=== PATIENT | female | born 1945 | race Caucasian/White ===

== ENCOUNTER 2016-09-25 12:59 | Inpatient (IN) | payer MEDICARE, OTHER ==
--- NOTE | 2016-09-25 13:17 | ER Document Report ---
ED Medical Screen (RME) - General Chief Complaint: Foot Pain Stated Complaint: SORES ON FEET Time seen by provider: 13:13 Mode of Arrival: Wheelchair Information source: Patient, Relative Notes: 71 yo female presents to ed for painful urinations swollen bilateral legs sores on both feet draining. States she went to [facility] yesterday and they sent her home with out doing any test, HX Dm asthma and chf - HPI Onset: Other - SEP 04 got out of rehab had small blisters which have gotten worse, urinary sympton for a week Quality of pain: Sharp Severity: Moderate Pain Level: 4 Associated Symptoms: Leg swelling, Other - burning with urination very dark urine Exacerbated by: Movement, Walking, Other - urination Relieved by: Denies Similar symptoms previously: Yes Recently seen / treated by doctor: Yes - Related Data Smoking: Non-smoker Frequency of alcohol use: None Drug Abuse: None
--- NOTE | 2016-09-25 15:04 | ER Document Report ---
ED General - General Chief Complaint: Skin Problem Stated Complaint: SORES ON FEET Time seen by provider: 14:59 Mode of Arrival: Wheelchair Information source: Patient, Relative Notes: 71-year-old female with 2 week history of worsening swelling to both lower extremities along with weeping of clear fluid from both lower legs. Family reports patient was admitted at [facility] in June with a UTI and bacteremia and congestive heart failure. From there she was discharged to rehabilitation facility in [place] and discharged home September 04. Family reports that she was doing well at time of discharge but is becoming gradually weaker. They report that she had 2 wounds on her right lower abdomen that required some type of debridement while she was hospitalized and those were looking better discharge they've gotten worse again since he got home and she is also developed red blisters on both feet and redness to the right leg. Family reports she's had decreased appetite and malaise for about 2 weeks as well. He reports some subjective fevers and chills but no vomiting or diarrhea. Patient is also reporting dysuria for about a week. Family reports this point she is no longer able to ambulate because of weakness. Physical Exam: General: Alert, appears uncomfortable no respiratory distress HEENT: Normocephalic. Atraumatic. PERRLA. Extraocular movements intact. Oropharynx clear. Neck: Supple. Non-tender. No JVD Respiratory: No respiratory distress. Clear and equal breath sounds bilaterally. Cardiovascular: Regular rate and rhythm. Abdominal: Normal Inspection. Soft, non-tender. No distension. Normal Bowel Sounds. Back: Non-tender. No deformity or step off. Extremities: Moves all four extremities. Upper extremities: 2+ radial pulses bilaterally. 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 Skin: Warm. Dry. Normal color. Patient has a 2 x 6 cm area of denuded skin in the right lower abdomen with a dry dressing over it. She has cheesy material in her inguinal folds with erythema consistent with fungal infection but no induration crepitance or fluctuance. The patient has a 2 cm area of erythema with open blister on the dorsum of the left foot and a 2 cm open blister with 3 cm of surrounding erythema on the dorsum of the right foot. There is bright erythema anteriorly and laterally in the right lower leg TRAVEL OUTSIDE OF THE [place] IN LAST 30 DAYS: No - Related Data Allergies/Adverse Reactions: amoxicillin Allergy (Verified 09/25/16 16:22) ampicillin Allergy (Verified 09/25/16 16:22) morphine Allergy (Verified 09/25/16 16:22) Sulfa (Sulfonamide Antibiotics) Allergy (Verified 09/25/16 16:26) Past Medical History - General Information source: Patient, Relative Last Menstrual Period: menopause - Social History Smoking Status: Never Smoker Chew tobacco use (# tins/day): No Frequency of alcohol use: None Drug Abuse: None Family History: None Patient has suicidal ideation: No Patient has homicidal ideation: No Endocrine Medical History: Reports: Hx Diabetes Mellitus Type 2 Review of Systems - Review of Systems Constitutional: Malaise, Weakness EENT: denies: Ear pain, Throat pain, Mouth pain Cardiovascular: Edema. denies: Chest pain, Palpitations, Dyspnea Respiratory: denies: Cough, Short of breath, Wheezing Gastrointestinal: denies: Abdominal pain, Diarrhea, Vomiting Genitourinary: Burning Female Genitourinary: No symptoms reported Musculoskeletal: Leg swelling, Ankle swelling. denies: Back pain, Muscle pain Hematologic/Lymphatic: denies: Swollen glands Neurological/Psychological: denies: Weakness, Numbness Physical Exam - Vital signs Vitals: Temp Pulse Resp BP Pulse Ox 98.5 F 96 16 139/39 H 99 09/25/16 13:14 09/25/16 13:14 09/25/16 13:14 09/25/16 13:14 09/25/16 13:14 Course - Re-evaluation Re-evalutation: 09/25/16 20:48 Patient is started on Rocephin for UTI. She also has evidence for cellulitis involving the right foot and right lower leg. 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 Patient is hyperkalemic and that was treated with a recheck 1 hour later showing some improvement. Patient has remained hemodynamically stable and has no EKG evidence for a worrisome degree of hyperkalemia. Patient this point is too weak to even sit up without assistance and I believe would fail any attempt at discharge and outpatient therapy and requires admission for UTI acute or chronic renal failure peripheral edema hyperkalemia and cellulitis Dr. Tracy accepts the patient for admission - Vital Signs Vital signs: Temp Pulse Resp BP Pulse Ox 98.2 F 96 19 140/50 H 97 09/25/16 20:31 09/25/16 13:14 09/25/16 20:06 09/25/16 20:06 09/25/16 20:06 - Laboratory Result Diagrams: 09/25/16 15:38 09/25/16 19:40 Laboratory results interpreted by me: 09/25/16 09/25/16 09/25/16 15:38 15:38 15:38 WBC 10.9 H RBC 3.48 L Hgb 10.2 L Hct 31.2 L RDW 21.6 H Eosinophils % 13.5 H Absolute Eosinophils 1.5 H Potassium 6.7 H* BUN 68 H Creatinine 2.65 H Est GFR ( Amer) 22 L Est GFR (Non-Af Amer) 18 L AST 55 H ALT 61 H Alkaline Phosphatase 216 H NT-Pro-B Natriuret Pep 7310 H Total Protein 5.8 L Albumin 2.3 L Urine Protein Urine Blood Ur Leukocyte Esterase Urine Ascorbic Acid 09/25/16 09/25/16 15:38 19:40 WBC RBC Hgb Hct RDW Eosinophils % Absolute Eosinophils Potassium 5.8 H BUN Creatinine Est GFR ( Amer) Est GFR (Non-Af Amer) AST ALT Alkaline Phosphatase NT-Pro-B Natriuret Pep Total Protein Albumin Urine Protein 100 H Urine Blood LARGE H Ur Leukocyte Esterase LARGE H Urine Ascorbic Acid 40 H Urinalysis shows greater than 182 white cells and greater than 182 red cells. - Diagnostic Test Radiology reviewed: Reports reviewed - EKG Interpretation by Me Additional EKG results interpreted by me: 09/25/16 20:48 EKG reviewed by myself shows sinus rhythm at 90 no acute changes Discharge - Discharge Clinical Impression: UTI (urinary tract infection) Qualifiers: Urinary tract infection type: site unspecified Hematuria presence: with hematuria Qualified Code(s): N39.0 - Urinary tract infection, site not specified ; R31.9 - Hematuria, unspecified Cellulitis Qualifiers: Site of cellulitis: extremity Site of cellulitis of extremity: lower extremity Laterality: unspecified laterality Qualified Code(s): L03.119 - Cellulitis of unspecified part of limb Acute renal failure Qualifiers: Acute renal failure type: unspecified Qualified Code(s): N17.9 - Acute kidney failure, unspecified Disposition: ADMITTED INPATIENT Admitting Provider: Hospitalist Unit Admitted: [facility]
[2016-09-25] MEDS ORDERED: PIPERACILLIN/TAZOBACTAM 3.375 GM VIAL IV ONE (15:19)
[2016-09-25 16:38] LABS: ABSOLUTE EOSINOPHILS # (AUTO) 1.5 10^3/uL (0.0-0.6); ABSOLUTE LYMPHOCYTES (AUTO) 2.5 10^3/uL (0.5-4.7); ABSOLUTE MONOCYTES (AUTO) 0.9 10^3/uL (0.1-1.4); BASOPHILS % (AUTO) 0.4 % (0-2); EOSINOPHILS % (AUTO) 13.5 % (0-6); HEMATOCRIT 31.2 % (36.0-47.0); HEMOGLOBIN 10.2 g/dL (12.0-15.5); HGB HCT DIFFERENCE -0.6; LYMPHOCYTES % (AUTO) 22.9 % (13-45); MEAN CORPUSCULAR HEMOGLOBIN 29.4 pg (27.0-33.4); MEAN CORPUSCULAR HGB CONC 32.9 g/dL (32.0-36.0); MEAN CORPUSCULAR VOLUME 90 fl (80-97); MONOCYTES % (AUTO) 8.2 % (3-13); RED BLOOD COUNT 3.48 10^6/uL (3.72-5.28); RED CELL DISTRIBUTION WIDTH 21.6 % (11.5-14.0); WHITE BLOOD COUNT 10.9 10^3/uL (4.0-10.5)
[2016-09-25 16:44] LABS: ALANINE AMINOTRANSFERASE 61 U/L (9-52); ALBUMIN 2.3 g/dL (3.5-5.0); ALKALINE PHOSPHATASE 216 U/L (38-126); ANION GAP 8 (5-19); ASPARTATE AMINO TRANSFERASE 55 U/L (14-36); BILIRUBIN,TOTAL 0.9 mg/dL (0.2-1.3); BLOOD UREA NITROGEN 68 mg/dL (7-20); CALCIUM 8.6 mg/dL (8.4-10.2); CARBON DIOXIDE 23 mmol/L (22-30); CHLORIDE 107 mmol/L (98-107); CREATININE RESULT 2.65 mg/dL (0.52-1.25); GLUCOSE 109 mg/dL (75-110); TOTAL PROTEIN 5.8 g/dL (6.3-8.2)
[2016-09-25 16:48] LABS: POTASSIUM 6.7 mmol/L (3.6-5.0)
[2016-09-25 17:10] LABS: APPEARANCE,URINE TURBID; BILIRUBIN,URINE NEGATIVE (NEGATIVE); GLUCOSE, URINE NEGATIVE (NEGATIVE); KETONES,URINE NEGATIVE (NEGATIVE); LEUKOCYTE ESTERASE,URINE LARGE (NEGATIVE); NITRITE,URINE NEGATIVE (NEGATIVE); PROTEIN,URINE 100 mg/dL (NEGATIVE); URINE SPECIFIC GRAVITY 1.016; UROBILINOGEN,URINE NEGATIVE mg/dL (<2.0)
[2016-09-25] MEDS ORDERED: CEFTRIAXONE 1 GM/D5W RTU 50 ML IV ONE (18:08)
[2016-09-25] MEDS ORDERED: CALCIUM GLUCONATE 1000 MG/10 ML INJ IV ONE (18:09)
[2016-09-25] MEDS ORDERED: INSULIN REG, HUMAN 100 UNIT/ML 3 ML VIAL (PYX) IV ONE (18:10)
[2016-09-25] MEDS ORDERED: DEXTROSE 50%-WATER 25 GM/50 ML DISP.SYRIN IV ONE (18:10)
[2016-09-25] MEDS ORDERED: SODIUM BICARBONATE 4.2% INJ (2.4 MEQ/5 ML) VIAL INJ ONE (18:11)
[2016-09-25] MEDS ORDERED: SODIUM BICARBONATE 8.4% INJ 50 MEQ/50 ML DISP.SYRIN IV ONE (18:12)
--- NOTE | 2016-09-25 21:03 | EKG REPORT ---
SEVERITY:- BORDERLINE ECG - SINUS RHYTHM CONSIDER ANTERIOR INFARCT : Confirmed by: Evens Byers MD 25-Sep-2016 21:03:18
[2016-09-25 21:19] LABS: ADD ON TESTING BLD IN LAB ACKNOWLEDGE
[2016-09-25 21:35] LABS: MAGNESIUM 1.7 mg/dL (1.6-2.3)
[2016-09-25 21:48] LABS: CREATINE KINASE MB 2.14 ng/mL (<4.55)
[2016-09-25 21:50] LABS: TROPONIN I 0.041 ng/mL
[2016-09-25] MEDS ORDERED: GLUCAGON,HUMAN RECOMB 1 MG INJ IM PRN (22:26)
[2016-09-25] MEDS ORDERED: DEXTROSE 50%-WATER 25 GM/50 ML DISP.SYRIN IV PRN ×2 (22:26)
[2016-09-25] MEDS ORDERED: DEXTROSE 40% GEL 15 GM TUBE PO PRN ×2 (22:26)
[2016-09-25] MEDS ORDERED: PHARMACY COMMUNICATION ORDER MC SCH (22:30)
[2016-09-25] MEDS ORDERED: VANCOMYCIN HCL 0 MG in DEXTROSE 5%-WATER 250 ML IV NR (22:30)
[2016-09-25] MEDS ORDERED: VANCOMYCIN HCL INJ 1000 MG VIAL IV PRN (22:40)
[2016-09-25] MEDS ORDERED: VANCOMYCIN HCL 1,000 MG in DEXTROSE 5%-WATER 250 ML IV ONE (22:45)
[2016-09-26] MEDS ORDERED: NORMAL SALINE 1000 ML 1,000 ML IV PRN (00:50)
--- NOTE | 2016-09-26 00:55 | PDOC H&P ---
History of Present Illness Admission Date/PCP: 09/25/16 21:56 CATHERINE ARNOLD MD Patient complains of: leg swelling, weakness History of Present Illness: NEHA RUSSELL is a 71 year old female hospitalized in June of this year at [facility] for combination of urinary tract infection with resulting bacteremia, along with, by her description, new-onset congestive heart failure, who presents to the emergency room for evaluation of above complaints. Patient has been discussed with emergency room physician who evaluated the patient. Was transferred to a rehabilitation facility in [place] and discharge back home on September 04. Doing well at the time of discharge, but has gradually become weaker and weaker. Weakness has progressed to the point over the last several days she's been basically nonambulatory. Prior to that point, she was able to ambulate, pushing a wheelchair for support. She's had nausea and vomiting, without blood or coffee ground material, along with shaking chills diarrhea and dysuria. Has developed slowly progressive bilateral lower extremity swelling, along with red blisters on both feet and redness to the right leg. However, no respiratory complaints, no chest pain. . No history of MRSA infection or C. difficile. While hospitalized during the above stay, she did undergo debridement of 2 wounds on her right lower abdomen. Laboratory results are listed in [facility] and are reviewed. X-ray summary results are listed below, with full report(s) reviewed. . EKG reviewed . No old EKG available for comparison. Social history/personal habits: She is a . Lives with daughter. Retired. No use of alcohol tobacco or illicit drugs. Should patient become mentally incapacitated, surrogate health care decision maker daughter Sommer.. Family History : Daughter healthy. 2 brothers are alive and healthy. Father of Alzheimer's disease. Mother of heart problems. Allergies/adverse reactions are listed in [facility] and are reviewed. Home medications are reviewed provided by [facility] and are to be reconciled by nursing staff in [facility]. Home medications initially autopopulated into [facility] may not accurately reflect patient's true medications, dosages, and/or frequencies. REVIEW OF SYSTEMS: Constitutional: See history and present illness. Eyes: Wears glasses. ENT: No swallowing problems or complaints. No hearing problems or complaints. Pulmonary: No current complaints. Cardiovascular: No current complaints, including chest pain. Gastrointestinal: See history and present illness. Skin: See history and present illness. Hematologic: Easy bruising. Neurologic: No current complaints, including numbness or tingling. Musculoskeletal: Joint pain from arthritis. Psychiatric: No current complaints, including anxiety or depression. Endocrine: No current complaints, including polyuria. Genitourinary: No current complaints, including dysuria. PHYSICAL EXAMINATION: 5 feet 7 inches tall. 119.9 kg. BMI 41.4 kg/m. Blood pressure 147/62. Pulse 95 and regular. 98% saturation on room air. Respirations are 18 and unlabored. Temperature 98.5. Morbidly obese chronically ill-appearing female who nevertheless appears approximately her stated age. Appears to not feel very well. Otherwise , awake alert pleasant and cooperative. Skin is warm and dry. No subcutaneous nodules palpated. See comments under "abdomen" and "extremities" below. ENT: Hearing grossly normal to normal conversation. Tongue midline on protrusion pink and slightly tacky Eyes: No scleral icterus. Pupils equal and reactive to light at 4 mm. [place] conjunctivae. Neck is supple and nontender to gentle active range of motion and palpation. Midline trachea. No palpable thyroid nodule mass enlargement or tenderness. Lymphatic: No palpable cervical or clavicular nodes. Neck and lymphatic exams limited by patient body habitus. Psychiatric: Reasonable insight into acute and chronic medical issues. Oriented to time location and why here. Lungs: Auscultation reveals clear and equal breath sounds bilaterally. No use of accessory respiratory muscles. Cardiovascular: Heart regular rate and rhythm, without gallop murmur or rub. No carotid or abdominal aortic bruits. Moderate pitting diffuse edema, both lower extremities; pitting portion of the edema is particularly noticeable at ankles and feet. Not able to detect posterior tibial or dorsalis pedis pulses due to edema, but feet are warm and dry, with quite acceptable capillary refill in toes. Abdomen: soft, obese, mild to moderately distended essentially nontender except minimal discomfort in the mid abdomen, which is not overly remarkable with positive bowel sounds. Certainly no evidence of guarding or peritoneal signs. Unable to adequately evaluate abdomen for masses or organomegaly due to body habitus and distention. Evidence of pink moist rash under her abdominal panniculus, with a small ulcer on each side anteriorly. Extremities: Feet are warm and dry. No left calf tenderness to compression. Gentle manipulation of left lower extremity fails to reveal any obvious evidence of injury or instability to knee hip or ankle. Quite restricted range of motion at right knee, due to previous surgery; patient states she had the knee "removed," not replaced. Evidence of mild cellulitis involving the right lower extremity below the knee to just above the ankle, primarily anteriorly, laterally, and somewhat posteriorly, without crepitus fluctuance or expressible discharge. Has a small fairly clean ulcer on the dorsum of each foot; please see documentation by emergency room physician related to same. Neurologic: Moves upper extremities grossly normally. Left patellar reflex absent. Absent Babinski. Light touch is intact at feet. Dorsiflexion and plantarflexion of feet 5 / 5 and symmetric. Past Medical History Cardiac Medical History: Reports: Congestive Heart Failure, Hyperlipidema, Hypertension Denies: DVT, Myocardial Infarction, Pulmonary Embolism EENT Medical History: Reports: Eyes - Glasses Denies: Ears, Throat Neurological Medical History: Denies: Hemorrhagic CVA, Ischemic CVA, Seizures Endocrine Medical History: Reports: Diabetes Mellitus Type 2, Hypothyroidism Denies: Diabetes Mellitus Type 1, Hyperthyroidism Renal/ Medical History: Reports: Other - Recurrent urinary tract infections. GI Medical History: Denies: Cirrhosis, Gastroesophageal Reflux Disease, Hepatitis, Peptic Ulcer Disease Musculoskeltal Medical History: Reports: Arthritis Psychiatric Medical History: Denies: Alcohol Dependency, Depression, General Anxiety Disorder, Substance Abuse, Tobacco Dependency Hematology: Reports: Other - Easy bruising. Infectious Medical History: Denies: Clostridium Difficile, Hepatitis B, Hepatitis C, Methicillin- Resistant Staph Aureus Past Surgical History Past Surgical History: Reports: Herniorrhaphy - Umbilical, Orthopedic Surgery - "Removal" of right kneefusion? Social History Information Source: Patient, Emergency Med Personnel, [facility] Records Lives with: Family Smoking Status: Never Smoker Frequency of Alcohol Use: None Drugs: None - Advance Directive Resuscitation Status: Full Code Family History Family History: None Parental Family History Reviewed: Yes Children Family History Reviewed: Yes Sibling(s) Family History Reviewed.: Yes Medication/Allergy Home Medications: Allopurinol [Zyloprim 300 mg Tablet] 300 mg PO DAILY 09/25/16 Colchicine [Colchicine 0.6 mg Tablet] 0.6 mg PO BID 09/25/16 Diclofenac Sodium [Voltaren] 100 gm TP DAILY PRN 09/25/16 Fexofenadine HCl [Cynthia] 180 mg PO DAILY 09/25/16 Furosemide [Lasix 40 mg Tablet] 40 mg PO QAM 09/25/16 Insulin NPL/Insulin Lispro [Humalog Mix 50-50 Vial] 60 unit SQ TID 09/25/16 Levothyroxine Sodium [Synthroid 0.075 mg Tablet] 0.075 mg PO DAILY 09/25/16 [place]-3 Acid Ethyl Esters [Lovaza 1 gm Capsule] 1 gm PO DAILY 09/25/16 Pravastatin Sodium [Pravachol] 40 mg PO DAILY 09/25/16 RX: Aspirin 81 mg PO DAILY 09/25/16 RX: Lisinopril 5 mg PO DAILY 09/25/16 Ranitidine HCl [Zantac 150 mg Tablet] 150 mg PO DAILY 09/25/16 Saxagliptin HCl/Metformin HCl [Kombiglyze Xr 2.5-1,000 mg Tab] 2 each PO DAILY 09/25/16 Triamterene/Hydrochlorothiazid [Triamterene-Hctz 75-50 mg Tab] 1 tab PO DAILY Allergies/Adverse Reactions: amoxicillin Allergy (Verified 09/25/16 22:22) ampicillin Allergy (Verified 09/25/16 22:22) cefepime Allergy (Verified 09/27/16 13:40) Sulfa (Sulfonamide Antibiotics) Allergy (Verified 09/25/16 22:21) rash Physical Exam Vital Signs: Temp Pulse Resp BP Pulse Ox 98.2 F 96 18 142/62 H 98 09/25/16 20:31 09/25/16 13:14 09/25/16 21:02 09/25/16 21:02 09/25/16 21:02 Results Impressions: Chest X-Ray 09/25/16 13:20 IMPRESSION: Trace bilateral pleural effusions with bibasilar airspace disease, likely atelectasis. Assessment & Plan - Diagnosis (1) Abnormal chest x-ray Is this a current diagnosis for this admission?: YesPlan: Actual film reviewed, along with report. No respiratory complaints. Likely atelectasis. Incentive spirometry by respiratory therapy twice a day. (2) Abdominal wall skin ulcer Qualifiers: Non-pressure ulcer stage: unspecified non-pressure ulcer stage Qualified Code(s): L98.499 - Non-pressure chronic ulcer of skin of other sites with unspecified severity Is this a current diagnosis for this admission?: YesPlan: Surgery consult. (3) Acute renal failure Qualifiers: Acute renal failure type: unspecified Qualified Code(s): N17.9 - Acute kidney failure, unspecified Is this a current diagnosis for this admission?: YesPlan: Likely prerenal due to nausea vomiting diarrhea and decreased by mouth intake. Gentle IV fluids. Nephrology consult. Follow-up chemistry. (4) Anemia Qualifiers: Anemia type: unspecified type Qualified Code(s): D64.9 - Anemia, unspecified Is this a current diagnosis for this admission?: YesPlan: No need for transfusion. Follow-up CBC with differential. (5) CHF (congestive heart failure) Qualifiers: Congestive heart failure type: unspecified congestive heart failure type Congestive heart failure chronicity: acute Qualified Code(s): I50.9 - Heart failure, unspecified Is this a current diagnosis for this admission?: YesPlan: Cardiology consult. June 2016 hospital stay at [facility] for combination urinary tract infection and congestive heart failure. Patient denies any prior history of same. Have requested records from [facility]. With renal failure, and no pulmonary complaints, will hold Lasix for the present time. (6) Cellulitis of right leg Is this a current diagnosis for this admission?: YesPlan: Blood cultures. Intravenous antibiotics. (7) Diarrhea Qualifiers: Diarrhea type: unspecified type Qualified Code(s): R19.7 - Diarrhea , unspecified Is this a current diagnosis for this admission?: YesPlan: Stool for C. difficile. (8) Elevated LFTs Is this a current diagnosis for this admission?: YesPlan: Possibly due to underlying heart failure. No old labs available for comparison. Follow-up hepatic panel. (9) Elevated troponin Is this a current diagnosis for this admission?: YesPlan: Indeterminate level. Likely due to heart failure. No outward evidence of acute coronary syndrome. Serial troponins. Cardiology consult. (10) Foot ulcer, left Qualifiers: Non-pressure ulcer stage: unspecified non-pressure ulcer stage Qualified Code(s): L97.529 - Non-pressure chronic ulcer of other part of left foot with unspecified severity Is this a current diagnosis for this admission?: YesPlan: Surgery consult. (11) Peripheral edema Is this a current diagnosis for this admission?: Yes (12) Right foot ulcer Qualifiers: Non-pressure ulcer stage: unspecified non-pressure ulcer stage Qualified Code(s): L97.519 - Non-pressure chronic ulcer of other part of right foot with unspecified severity Is this a current diagnosis for this admission?: Yes (13) UTI (urinary tract infection) Qualifiers: Urinary tract infection type: site unspecified Hematuria presence: with hematuria Qualified Code(s): N39.0 - Urinary tract infection, site not specified Is this a current diagnosis for this admission?: YesPlan: Blood and urine cultures. Intravenous antibiotics. I have strongly encouraged patient not to get out of bed without notifying staff , to avoid a fall with injury. Knee high SCDs for DVT prophylaxis, , left lower extremity only, along with subcutaneous heparin. Impression and plans were discussed with patient, who concurs. Time spent in evaluation and management of patient: 90 minutes. - Inpatient Certification Based on my medical assessment, after consideration of the patient's comorbidities, presenting symptoms, or acuity I expect that the services needed warrant INPATIENT care.: Yes I certify that my determination is in accordance with my understanding of Medicare's requirements for reasonable and necessary INPATIENT services [42 CFR 412.3e].: Yes Medical Necessity: Need Close Monitoring Due to Risk of Patient Decompensation, Need For Continuous Telemetry Monitoring, Need for IV Antibiotics, Risk of Diagnosis Which Will Require Inpatient Eval/Care/Monitoring Post Hospital Care: D/C or Transfer Summary
[2016-09-26 01:02] LABS: ANION GAP 8 (5-19); BLOOD UREA NITROGEN 65 mg/dL (7-20); CALCIUM 8.7 mg/dL (8.4-10.2); CARBON DIOXIDE 22 mmol/L (22-30); CHLORIDE 111 mmol/L (98-107); CREATINE KINASE 93 U/L (30-135); CREATININE RESULT 2.56 mg/dL (0.52-1.25); GLUCOSE 115 mg/dL (75-110); POTASSIUM 5.9 mmol/L (3.6-5.0); SODIUM 141.1 mmol/L (137-145)
[2016-09-26 01:14] LABS: CREATINE KINASE MB 1.89 ng/mL (<4.55); TROPONIN I 0.047 ng/mL
[2016-09-26] MEDS ORDERED: INSULIN REG, HUMAN 100 UNIT/ML 3 ML VIAL (PYX) IV ONE (02:48)
[2016-09-26] MEDS ORDERED: DEXTROSE 50%-WATER 25 GM/50 ML DISP.SYRIN IV ONE (02:48)
[2016-09-26 06:59] LABS: ABSOLUTE BASOPHILS # (AUTO) 0.1 10^3/uL (0.0-0.2); ABSOLUTE EOSINOPHILS # (AUTO) 2.1 10^3/uL (0.0-0.6); ABSOLUTE LYMPHOCYTES (AUTO) 2.4 10^3/uL (0.5-4.7); ABSOLUTE MONOCYTES (AUTO) 0.9 10^3/uL (0.1-1.4); ABSOLUTE NEUT (AUTO) 4.3 10^3/uL (1.7-8.2); BASOPHILS % (AUTO) 1.5 % (0-2); EOSINOPHILS % (AUTO) 20.8 % (0-6); HEMOGLOBIN 8.8 g/dL (12.0-15.5); HGB HCT DIFFERENCE -0.6; LYMPHOCYTES % (AUTO) 24.5 % (13-45); MEAN CORPUSCULAR HEMOGLOBIN 29.4 pg (27.0-33.4); MEAN CORPUSCULAR HGB CONC 32.8 g/dL (32.0-36.0); MEAN CORPUSCULAR VOLUME 90 fl (80-97); MONOCYTES % (AUTO) 9.5 % (3-13); RED BLOOD COUNT 3.01 10^6/uL (3.72-5.28); RED CELL DISTRIBUTION WIDTH 22.2 % (11.5-14.0); SEGMENTED NEUTROPHILS % (AUTO) 43.7 % (42-78); WHITE BLOOD COUNT 9.9 10^3/uL (4.0-10.5)
[2016-09-26 07:06] LABS: ALANINE AMINOTRANSFERASE 50 U/L (9-52); ALBUMIN 2.1 g/dL (3.5-5.0); ALKALINE PHOSPHATASE 175 U/L (38-126); ANION GAP 7 (5-19); ASPARTATE AMINO TRANSFERASE 44 U/L (14-36); BILIRUBIN,TOTAL 0.7 mg/dL (0.2-1.3); BLOOD UREA NITROGEN 60 mg/dL (7-20); CALCIUM 8.5 mg/dL (8.4-10.2); CARBON DIOXIDE 23 mmol/L (22-30); CHLORIDE 111 mmol/L (98-107); CHOLESTEROL 88.26 mg/dL (0-200); CREATININE RESULT 2.47 mg/dL (0.52-1.25); Direct HDL 15 mg/dL (>40); GLUCOSE 147 mg/dL (75-110); POTASSIUM 5.3 mmol/L (3.6-5.0); SODIUM 140.9 mmol/L (137-145); TOTAL PROTEIN 5.1 g/dL (6.3-8.2); TRIGLYCERIDES 150 mg/dL (<150)
[2016-09-26 07:17] LABS: DIRECT LDL 45 mg/dL (<100)
[2016-09-26] MEDS ORDERED: CEFEPIME HCL 2 GM in DEXTROSE 5%-WATER 50 ML IV ONE (09:15)
[2016-09-26] MEDS ORDERED: CEFEPIME 2 GM/D5W RTU 50 ML IV SCH (10:00)
[2016-09-26] MEDS ORDERED: LORATADINE 10 MG TABLET PO ONE (11:00)
[2016-09-26] MEDS: LEVOTHYROXINE SODIUM 0.075 MG TABLET PO SCH (12:58)
[2016-09-26] MEDS: ASPIRIN 81 MG TABLET, CHEWABLE PO SCH (12:59)
[2016-09-26] MEDS: NYSTATIN TOPICAL POWDER 15 GM TP SCH ×2 (12:59→18:13)
[2016-09-26] MEDS: ACETAMINOPHEN 325 MG TABLET PO PRN (13:03)
[2016-09-26] MEDS: HEPARIN SOD (PORCINE) 5,000 UNIT/ML 1 ML SYRINGE SUBCUT SCH ×2 (13:04→22:22)
--- NOTE | 2016-09-26 13:37 | PDOC PROGRESS REPORT ---
Subjective Progress Note for:: 09/26/16 Subjective:: The patient was seen earlier today on rounds. Patient states that she overall feels very weak and tired. The patient admits to having persistent edema. Pain is well controlled at this time. The patient denies any nausea, vomiting, diarrhea, shortness of breath, dizziness, chest pain, heart palpitations, fevers , or chills. The patient has remained afebrile. Blood pressures have been in a good range. When prompted the patient voices no other concerns at this time. Review of systems: The rest of the review of systems is negative. Physical Exam Vital Signs: Temp Pulse Resp BP Pulse Ox 98.1 F 95 16 128/45 H 100 09/26/16 11:11 09/26/16 11:11 09/26/16 11:11 09/26/16 11:11 09/26/16 11:11 Intake & Output 09/24/16 09/25/16 09/26/16 23:59 23:59 23:59 Intake Total 0 Balance 0 Weight 120 kg General appearance: PRESENT: no acute distress, cooperative, well-developed - Frail-appearing, well-nourished Head exam: PRESENT: atraumatic, normocephalic Eye exam: PRESENT: conjunctiva pink, EOMI, PERRLA. ABSENT: scleral icterus Ear exam: PRESENT: normal external ear exam Mouth exam: PRESENT: moist, tongue midline Neck exam: PRESENT: JVD - To the level of the right ear. ABSENT: carotid bruit , thyromegaly Respiratory exam: PRESENT: clear to auscultation karoline, symmetrical, unlabored. ABSENT: rales, rhonchi, tachypnea, wheezes Cardiovascular exam: PRESENT: RRR. ABSENT: diastolic murmur, rubs, systolic murmur Pulses: PRESENT: normal dorsalis pedis pul Vascular exam: PRESENT: normal capillary refill GI/Abdominal exam: PRESENT: normal bowel sounds, soft. ABSENT: distended, guarding, mass, organolmegaly, rebound, tenderness Rectal exam: PRESENT: deferred Extremities exam: PRESENT: full ROM, pedal edema, +2 edema. ABSENT: calf tenderness, clubbing Neurological exam: PRESENT: alert, awake, oriented to person, oriented to place , oriented to time, oriented to situation, CN II-XII grossly intact. ABSENT: motor sensory deficit Psychiatric exam: PRESENT: appropriate affect, normal mood. ABSENT: homicidal ideation, suicidal ideation Skin exam: PRESENT: dry, intact, warm. ABSENT: cyanosis, rash Adult Front & Back Image: 1 - RLE cellulits and wound Results Laboratory Results: 09/26/16 06:31 09/26/16 06:31 09/26/16 09/26/16 09/26/16 00:42 06:31 06:31 WBC 9.9 RBC 3.01 L Hgb 8.8 L Hct 27.0 L MCV 90 MCH 29.4 MCHC 32.8 RDW 22.2 H Plt Count 188 Seg Neutrophils % 43.7 Lymphocytes % 24.5 Monocytes % 9.5 Eosinophils % 20.8 H Basophils % 1.5 Absolute Neutrophils 4.3 Absolute Lymphocytes 2.4 Absolute Monocytes 0.9 Absolute Eosinophils 2.1 H Absolute Basophils 0.1 Sodium 141.1 140.9 Potassium 5.9 H 5.3 H Chloride 111 H 111 H Carbon Dioxide 22 23 Anion Gap 8 7 BUN 65 H 60 H Creatinine 2.56 H 2.47 H Est GFR ( Amer) 22 L 23 L Est GFR (Non-Af Amer) 19 L 19 L Glucose 115 H 147 H Calcium 8.7 8.5 Total Bilirubin 0.7 AST 44 H ALT 50 Alkaline Phosphatase 175 H Total Protein 5.1 L Albumin 2.1 L Triglycerides 150 Cholesterol 88.26 LDL Cholesterol Direct 45 VLDL Cholesterol 30.0 HDL Cholesterol 15 L 09/26/16 09/26/16 09/26/16 00:42 00:42 06:31 Creatine Kinase 93 CK-MB (CK-2) 1.89 Troponin I 0.047 0.051 Impressions: Renal Ultrasound 09/25/16 00:00 IMPRESSION: No evidence for hydronephrosis. Ascites. Chest X-Ray 09/25/16 13:20 IMPRESSION: Trace bilateral pleural effusions with bibasilar airspace disease, likely atelectasis. Assessment & Plan - Diagnosis (1) Anasarca Is this a current diagnosis for this admission?: YesPlan: It appears that the patient's peripheral edema may not be of cardiac etiology. The patient's echocardiogram obtained in July 2016 appears to be unremarkable. Please see a copy of the report on the chart. The patient's volume status may be due to renal failure such as nephrotic syndrome or hepatic failure. 09/25/16 09/26/16 15:38 06:31 Creatinine 2.47 H Total Protein 5.1 L Albumin 2.1 L Urine Protein 100 H (2) Abnormal LFTs Is this a current diagnosis for this admission?: YesPlan: Will obtain a right upper quadrant ultrasound I do have a suspicion for possible underlying cirrhosis given the patient ascites. (3) Abdominal wall skin ulcer Qualifiers: Non-pressure ulcer stage: unspecified non-pressure ulcer stage Qualified Code(s): L98.499 - Non-pressure chronic ulcer of skin of other sites with unspecified severity Is this a current diagnosis for this admission?: YesPlan: Do appreciate surgery's input with this. (4) Right foot ulcer Qualifiers: Non-pressure ulcer stage: unspecified non-pressure ulcer stage Qualified Code(s): L97.519 - Non-pressure chronic ulcer of other part of right foot with unspecified severity Is this a current diagnosis for this admission?: YesPlan: Do appreciate surgery's input on this will continue to follow. (5) Cellulitis of right leg Is this a current diagnosis for this admission?: YesPlan: Will continue current antibiotic coverage till cultures return. 09/27/16 10:00 Cefepime 1 gm/D5w RTU [Maxipime RTU 1 gm/D5w 50 ml Premix Bag] 1 gm in 50 ml IV DAILY 09/27/16 12:00 Vancomycin HCl [Vancocin Inj 1000 mg Vial] 1,250 mg Dextrose 5%-Water [D5w 250 ml IV Soln] 250 ml IV Q36H (6) Acute renal failure Qualifiers: Acute renal failure type: unspecified Qualified Code(s): N17.9 - Acute kidney failure, unspecified Is this a current diagnosis for this admission?: YesPlan: Appears the patient's baseline creatinine is in the 1.9 range. The patient may actually be intravascularly volume depleted in spite of anasarca. The lungs are clear. Will continue to hold ZUHAIR inhibitor and await nephrology input. In the patient's yaz proteinuria I do have a suspicion for nephrotic syndrome possibly. (7) Elevated troponin Is this a current diagnosis for this admission?: Yes (9) Hyperkalemia Is this a current diagnosis for this admission?: YesPlan: ZUHAIR is on hold. This is trended down slightly with hydration will repeat chemistries later in follow (10) UTI (urinary tract infection) Qualifiers: Urinary tract infection type: site unspecified Hematuria presence: with hematuria Qualified Code(s): N39.0 - Urinary tract infection, site not specified Is this a current diagnosis for this admission?: YesPlan: Will await cultures and continue antibiotic coverage. (11) Foot ulcer, left Qualifiers: Non-pressure ulcer stage: unspecified non-pressure ulcer stage Qualified Code(s): L97.529 - Non-pressure chronic ulcer of other part of left foot with unspecified severity Is this a current diagnosis for this admission?: Yes (12) Anemia of chronic disease Is this a current diagnosis for this admission?: YesPlan: Will continue to follow. - Time Time Spent with patient: on this followup including assessment, plan, physical examination, specialty collaboration, and patient education is 35 minutes. Time Spent with patient: 35 or more minutes Medications reviewed and adjusted accordingly: Yes Disposition: The patient is a full code. Pending patient's symptomatology and diagnostic findings will reevaluate in the a.m.
[2016-09-26] MEDS: INSULIN LISPRO 100 UNIT/ML 3 ML VIAL SUBCUT PRN (18:34)
[2016-09-26 18:56] LABS: PROTHROMBIN TIME 15.8 SEC (11.4-15.4)
[2016-09-26 18:57] LABS: PARTIAL THROMBOPLASTIN TIME 35.7 SEC (23.5-35.8)
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
--- NOTE | 2016-09-27 05:38 | CONSULTATION REPORT E ---
Consultation Report NAME: NEHA RUSSELL : 1945 AGE: 71Y DATE: 09/26/2016 306 A TO: LASHAE JEFFREY M.D. FROM: ELSA SURESH M.D. Requesting Physician REASON FOR CONSULTATION: Possible congestive heart failure. HISTORY: Patient is a 71-year-old female with known history of hypertension, diabetes mellitus type 2 insulin-dependent, was admitted to [facility] with symptoms of urinary tract infection, septicemia and acute renal failure. She also had abdominal wounds. She was subsequently transferred to a rehab facility and was discharged home on 09/04/2016. The patient states since then, she has developed blisters on the right leg and ulcer of the right leg and there was worsening of her pain in the superficial skin ulcers on both sides of the lower abdomen. She also complains of shortness of breath. She denies any chest pain or discomfort. There is some orthopnea, but no PND. There is increase in the chronic leg edema. The patient denies any palpitations. There is no TIA or CVA symptoms. PAST MEDICAL HISTORY: 1. History of hypertension. 2. History of diabetes mellitus type 2, insulin dependent. 3. Hypothyroidism. 4. History of chronic renal failure, now more acute. Creatinine was 1.9 in the past and now the creatine has gone up to 2.47 with BUN of 60. 5. History of asthma attack recently. 6. History of depression present. There is no history of coronary artery disease, no history of WA. No history of palpations. No history of syncope. No history of prior congestive heart failure. No history of TIA or CVA. No history of GI bleed. PAST SURGICAL HISTORY: 1. Repair of rRight knee patella with fusion. 2. She also has history umbilical hernia surgery. SOCIAL HISTORY: She has never smoked. There is no history of ETOH abuse. FAMILY HISTORY: Positive for heart problems with the mother and father had Alzheimer's disease and of it. Two brothers are alive and healthy. ALLERGIES: She is allergic to AMOXICILLIN, AMPICILLIN AND SULFA. REVIEW OF SYSTEMS: CONSTITUTIONAL: Complains of generalized fatigue and weakness. No fever, chills or rigors. Denies headache or head injury. No dizziness. HEENT: Eyes: No history of amblyopia or diplopia, no history of amaurosis fugax. Ears: No history of tinnitus, no history of hearing loss, no history of recurrent ear infections. No vertigo. Nose: No history of hay fever, no history of nosebleeds, no history of nasal polyps in the nose. Mouth: No history of altered taste sensation, no history of ulcers in the mouth. No bleeding from the gums. Throat: No history of odynophagia or dysphagia. No history of recurrent sore throats. SKIN: No skin rashes. There are superficial ulcers of the right top of foot and also superficial skin ulcers in the abdomen, both the lower parts on the right and left sides. There is no psoriasis. There is no pruritus. NECK: No painful swelling of the neck. No symptoms of arthritis. LUNGS: History of asthma, none recently. No history of hemoptysis. No history of sleep apnea, no history of cough or sputum production. CARDIAC: History of hypertension. No history of WA or angina symptoms. No history of atrial fibrillation or ventricular arrhythmias. No history of syncope. Does have some orthopnea, but no PND. RENAL: History of chronic renal insufficiency, which has worsened now. Creatinine has gone up to 2.47 from 1.9. GASTROINTESTINAL: No history of GI bleed. No history of peptic ulcer disease. Note, the patient's liver functions are abnormal. There are no altered bowel movements. CENTRAL NERVOUS SYSTEM: No history of TIA or CVA. No history of seizures, headaches or migraines. ENDOCRINE: History of diabetes mellitus type 2, non-insulin dependent. She has a history of hypothyroidism. PSYCHIATRIC: No history of anxiety or depression. METABOLIC: History of hyperlipidemia present. The patient is on colchicine to prevent gout. Also she is on allopurinol. VASCULAR: No history of clot or claudication. The patient does not ambulate much because of the knee problems. There is no calf pain or tenderness on walking or claudication on walking. HEMATOLOGICAL: No history of bleeding diathesis. No history of clotting disorders. PHYSICAL EXAMINATION: GENERAL: The patient is moderate to severely obese, in some distress due to fatigue and weakness. VITAL SIGNS: She is afebrile with temperature of 98.1 degrees Fahrenheit orally, pulse is 95 beats per minute, blood pressure 128/45, respirations 16 per minute, and 02 saturation 100% on 2 liters nasal cannula. HEENT: Head is atraumatic and normocephalic. Eyes: Pupils are equal, round, regular, reactive to light and accommodation. Extraocular movements are normal. There is no conjunctival pallor. There is no scleral icterus. Ears: Tympanic membranes are intact. External auditory canals are clear. Nose: There is no deviated nasal septum. There is no inflammation of the nasal mucous membranes. Mouth: Mucous membranes of the mouth are moist. Tongue is moist. There are no ulcers. There is no bleeding from the gums. Throat: There is no redness of the oropharynx. There are no exudates. SKIN: There are no skin rashes. There is no petechia or ecchymosis. There is some redness suggestive of cellulitis in both feet. There is an ulcer, which dressed in the dorsum of the right foot; and also, there are superficial ulcers, which are dressed in both the right and left sides of the lower abdomen. NECK: Supple. There is mild JVD present. Carotids are equal. There is no bruit. There is no lymphadenopathy. Trachea is central. LUNGS: Fairly clear to auscultation and percussion. HEART: S1 and S2 are heard. There is no S3 gallop. There is no S4 gallop. There is systolic murmur in the left sternal border and the apex. There is no rub. ABDOMEN: Soft, obese, nontender. There is anasarca present. There is abdominal wall edema present. There is no hepatosplenomegaly. Bowel sounds are well heard. There is questionable ascites on percussion with shifting dullness. EXTREMITIES: Femorals are deep. There are no femoral bruits. Leg pulses are difficult to palpate. There is anasarca with 2+ pitting edema bilaterally. There is some redness of both feet, suggestive of early cellulitis. CENTRAL NERVOUS SYSTEM: The patient is conscious, awake, alert, oriented x3 with no focal deficits. PSYCHIATRIC: The patient's judgment and insight are intact. There is no anxiety or depression. DIAGNOSTIC TEST RESULTS: Note, the patient had an echo in July at [facility], which showed normal LV ejection fraction with no significant pulmonary hypertension. No significant valvular disease. The patient's EKG shows sinus rhythm, poor R wave progression, old anterior WA versus lead placement. The patient's chest x-ray shows some bibasilar disease, likely atelectasis, pneumonia cannot be completely excluded. There is mild cardiomegaly without heart failure. The patient's renal ultrasound shows that there is some ascites. Right kidney is normal size, normal echogenicity. No solid or suspicious masses. No hydronephrosis, no calcifications. The left kidney is normal size, normal echogenicity. No solid or suspicious masses. No hydronephrosis. No bladder masses. The patient's abdominal ultrasound shows the visualized portions of the pancreas are normal. Past the pancreas poorly seen. Liver echotexture not in the contrast, suggestive of cirrhosis. No focal lesion. Normal directional flow of the main portal vein and hepatic vein and hence, there is no Budd-Chiari syndrome. Gallbladder, mild sludge, no significant stones, normal wall thickness, no pericholecystic fluid. Florez's sign is negative. Intrahepatic ducts are normal. No filling defects. Inferior *------* normal flow. Aorta no aneurysm. There is mild ascites. The patient's white blood count 9900, hemoglobin 8.8, hematocrit 27, platelet count 188,000. The patient's sodium 140.9, potassium 5.3, chloride 111, CO2 23. The patient's BUN is 60, creatinine 2.47, GFR reduced at 19, which is chronic kidney disease stage 4. It used to be a stage 2 to 3 in the past. Calcium is 8.5, *------* 150, magnesium 1.7 on admission. The patient's total protein is 5.1, albumin 2.1. The patient's triglycerides are 150. The patient's LDL cholesterol is good at 40, HDL cholesterol low at 15. The patient's troponin-I is negative x3. The patient's TSH is 3.17. The patient's NT-proBNP is 7310. The patient's PT is 15.8, INR 1.22, PTT 35.7. IMPRESSION: 1. NO EVIDENCE OF CONGESTIVE HEART FAILURE. 2. POSSIBLE BIBASILAR PNEUMONIA. 3. ABNORMAL LIVER FUNCTION TESTS MOST LIKELY SECONDARY TO CIRRHOSIS WITH ASCITES. 4. ELEVATED JUGULAR VENOUS DISTENTION WITH EDEMA, MOST LIKELY A COMBINATION OF CIRRHOSIS ALONG WITH VOLUME OVERLOAD CAUSED BY ACUTE RENAL FAILURE. 5. ABDOMINAL WALL SKIN ULCERS. 6. RIGHT FOOT ULCER. 7. CELLULITIS OF THE RIGHT LEG. Patient is on antibiotics, continue that. 8. ACUTE RENAL FAILURE, AT PRESENT THE PATIENT IS STAGE 4. 9. ELEVATED TROPONIN INDETERMINATE RANGE, NEGATIVE. 10. HYPOKALEMIA. Note, the patient's ZUHAIR is on hold. 11. URINARY TRACT INFECTION. 12. FOOT ULCER, LEFT. 13. DIABETES MELLITUS, INSULIN DEPENDENT. 14. HYPOTHYROIDISM. 15. HYPERTENSION. 16. ANEMIA OF CHRONIC DISEASE. RECOMMENDATIONS: There is no evidence of congestive heart failure. No clear evidence of coronary artery disease. Recommend continue the patient on diuretics with albumin to see if this will pull fluid out. Consult with Nephrology. Hold the ZUHAIR inhibitor and gently hydrate the patient and with caution to make sure that the patient does not third space anymore. Continue antibiotics for the cellulitis. Note, 40 minutes spent on the patient, more than 50% of the time spent in direct patient care and also discussions with the hospitalist taking care of the patient. Note, the patient is FULL CODE. Her daughter is her surrogate healthcare decision maker. Thanking you. DICTATING PHYSICIAN: LASHAE JEFFREY M.D. [id number] PHY#: [id number] ID: [id number] JOB#: [id number] ACCT: [id number] cc:LASHAE JEFFREY M.D. >
[2016-09-27] MEDS: ASPIRIN 81 MG TABLET, CHEWABLE PO SCH (09:35)
[2016-09-27] MEDS ORDERED: CEFEPIME 1 GM/D5W RTU 1 GM/50 ML RTUPB IV SCH (10:00)
[2016-09-27] MEDS ORDERED: VANCOMYCIN HCL 1,250 MG in DEXTROSE 5%-WATER 250 ML IV SCH (12:00)
[2016-09-27] MEDS: INSULIN LISPRO 100 UNIT/ML 3 ML VIAL SUBCUT PRN ×3 (12:14→22:04)
[2016-09-27] MEDS: LORATADINE 10 MG TABLET PO SCH (12:16)
[2016-09-27] MEDS: ACETAMINOPHEN 325 MG TABLET PO PRN (12:24)
[2016-09-27] MEDS: NYSTATIN TOPICAL POWDER 15 GM TP SCH ×2 (12:32→17:59)
[2016-09-27] MEDS: LEVOTHYROXINE SODIUM 0.075 MG TABLET PO SCH (12:34)
[2016-09-27] MEDS: HEPARIN SOD (PORCINE) 5,000 UNIT/ML 1 ML SYRINGE SUBCUT SCH ×2 (12:34→22:04)
[2016-09-27 13:05] LABS: ABSOLUTE BASOPHILS # (AUTO) 0.1 10^3/uL (0.0-0.2); ABSOLUTE EOSINOPHILS # (AUTO) 1.4 10^3/uL (0.0-0.6); ABSOLUTE MONOCYTES (AUTO) 0.5 10^3/uL (0.1-1.4); BASOPHILS % (AUTO) 1.4 % (0-2); EOSINOPHILS % (AUTO) 17.4 % (0-6); HEMATOCRIT 31.1 % (36.0-47.0); HEMOGLOBIN 10.1 g/dL (12.0-15.5); HGB HCT DIFFERENCE -0.8; LYMPHOCYTES % (AUTO) 12.9 % (13-45); MEAN CORPUSCULAR HEMOGLOBIN 29.7 pg (27.0-33.4); MEAN CORPUSCULAR HGB CONC 32.4 g/dL (32.0-36.0); MEAN CORPUSCULAR VOLUME 92 fl (80-97); MONOCYTES % (AUTO) 6.2 % (3-13); RED BLOOD COUNT 3.39 10^6/uL (3.72-5.28); RED CELL DISTRIBUTION WIDTH 22.1 % (11.5-14.0); SEGMENTED NEUTROPHILS % (AUTO) 62.1 % (42-78); WHITE BLOOD COUNT 8.1 10^3/uL (4.0-10.5)
[2016-09-27 13:10] LABS: ANION GAP 10 (5-19); BLOOD UREA NITROGEN 57 mg/dL (7-20); CALCIUM 8.5 mg/dL (8.4-10.2); CARBON DIOXIDE 21 mmol/L (22-30); CHLORIDE 112 mmol/L (98-107); CREATININE RESULT 2.21 mg/dL (0.52-1.25); GLUCOSE 170 mg/dL (75-110); MAGNESIUM 1.5 mg/dL (1.6-2.3); POTASSIUM 5.3 mmol/L (3.6-5.0); SODIUM 142.9 mmol/L (137-145)
[2016-09-27] MEDS ORDERED: FUROSEMIDE INJ/PF 40 MG/4 ML SDV IV ONE (14:00)
[2016-09-27] MEDS: ALBUMIN HUMAN 50 ML IV SCH ×2 (15:06→16:16)
--- NOTE | 2016-09-27 15:38 | PDOC PROGRESS REPORT ---
Subjective Progress Note for:: 09/27/16 - Subjective:: The patient was seen earlier today on rounds. Patient states that she overall feels very weak and tired the feels better than when she came in. The patient has returned from her paracentesis in which 3.5 liters approximately was removed. The patient admits to having persistent edema. Pain is well controlled at this time. The patient denies any nausea, vomiting, diarrhea, shortness of breath, dizziness, chest pain, heart palpitations, fevers, or chills. The patient has remained afebrile. Blood pressures have been in a good range. When prompted the patient voices no other concerns at this time. Review of systems: The rest of the review of systems is negative. Physical Exam Vital Signs: Temp Pulse Resp BP Pulse Ox 98.4 F 96 22 H 135/40 H 98 09/27/16 12:02 09/27/16 12:02 09/27/16 12:02 09/27/16 12:02 09/27/16 12:02 Intake & Output 09/25/16 09/26/16 09/27/16 23:59 23:59 23:59 Intake Total 800 2298 Output Total 600 1050 Balance 200 1248 Weight 120 kg 132.2 kg General appearance: PRESENT: no acute distress, cooperative, well-developed - Frail-appearing, well-nourished Head exam: PRESENT: atraumatic, normocephalic Eye exam: PRESENT: conjunctiva pink, EOMI, PERRLA. ABSENT: scleral icterus Ear exam: PRESENT: normal external ear exam Mouth exam: PRESENT: moist, tongue midline Neck exam: PRESENT: JVD - To the level of the right ear. ABSENT: carotid bruit , thyromegaly Respiratory exam: PRESENT: clear to auscultation karoline, symmetrical, unlabored. ABSENT: rales, rhonchi, tachypnea, wheezes Cardiovascular exam: PRESENT: RRR. ABSENT: diastolic murmur, rubs, systolic murmur Pulses: PRESENT: normal dorsalis pedis pul Vascular exam: PRESENT: normal capillary refill GI/Abdominal exam: PRESENT: normal bowel sounds, soft. ABSENT: distended, guarding, mass, organolmegaly, rebound, tenderness Rectal exam: PRESENT: deferred Extremities exam: PRESENT: full ROM, pedal edema, +2 edema. ABSENT: calf tenderness, clubbing Neurological exam: PRESENT: alert, awake, oriented to person, oriented to place , oriented to time, oriented to situation, CN II-XII grossly intact. ABSENT: motor sensory deficit Psychiatric exam: PRESENT: appropriate affect, normal mood. ABSENT: homicidal ideation, suicidal ideation Skin exam: PRESENT: dry, intact, warm. ABSENT: cyanosis, rash. Dressings are dry and intact. Results Laboratory Results: 09/27/16 12:45 09/27/16 12:45 09/27/16 09/27/16 12:45 12:45 WBC 8.1 RBC 3.39 L Hgb 10.1 L Hct 31.1 L MCV 92 MCH 29.7 MCHC 32.4 RDW 22.1 H Plt Count 199 Seg Neutrophils % 62.1 Lymphocytes % 12.9 L Monocytes % 6.2 Eosinophils % 17.4 H Basophils % 1.4 Absolute Neutrophils 5.0 Absolute Lymphocytes 1.0 Absolute Monocytes 0.5 Absolute Eosinophils 1.4 H Absolute Basophils 0.1 Sodium 142.9 Potassium 5.3 H Chloride 112 H Carbon Dioxide 21 L Anion Gap 10 BUN 57 H Creatinine 2.21 H Est GFR ( Amer) 27 L Est GFR (Non-Af Amer) 22 L Glucose 170 H Calcium 8.5 Magnesium 1.5 L 09/26/16 09/26/16 09/26/16 00:42 00:42 06:31 Creatine Kinase 93 CK-MB (CK-2) 1.89 Troponin I 0.047 0.051 Impressions: Renal Ultrasound 09/25/16 00:00 IMPRESSION: No evidence for hydronephrosis. Ascites. Chest X-Ray 09/25/16 13:20 IMPRESSION: Trace bilateral pleural effusions with bibasilar airspace disease, likely atelectasis. Abdomen Ultrasound 09/26/16 00:00 IMPRESSION: COARSENED LIVER ECHOTEXTURE WITH NODULAR CONTOUR SUGGESTIVE OF CIRRHOSIS. MILD ASCITES. NO SONOGRAPHIC EVIDENCE OF CHOLECYSTITIS. Paracentesis Ultrasound 09/27/16 00:00 IMPRESSION: Successful ultrasound-guided paracentesis Assessment & Plan - Diagnosis (1) Cirrhosis Qualifiers: Hepatic cirrhosis type: unspecified hepatic cirrhosis Ascites presence : with ascites Qualified Code(s): K74.60 - Unspecified cirrhosis of liver Is this a current diagnosis for this admission?: YesPlan: This is not of alcohol etiology as the patient has not drank. Patient denies any known history of hepatitis. The patient does not have a known underlying autoimmune disease. High suspicion for underlying hepatic steatosis secondary to fatty liver. Regardless will obtain hepatitis antibodies as well as IgG level. (2) Acute renal failure Qualifiers: Acute renal failure type: unspecified Qualified Code(s): N17.9 - Acute kidney failure, unspecified Is this a current diagnosis for this admission?: YesPlan: Appears the patient's baseline creatinine is in the 1.9 range. The patient may actually be intravascularly volume depleted in spite of anasarca. The lungs are clear. Will continue to hold ZUHAIR inhibitor and await nephrology input. In the patient's yaz proteinuria I do have a suspicion for nephrotic syndrome possibly. (3) Anasarca Is this a current diagnosis for this admission?: YesPlan: Secondary to #1. It appears that the patient's peripheral edema may not be of cardiac etiology. The patient's echocardiogram obtained in July 2016 appears to be unremarkable. Please see a copy of the report on the chart. The patient's volume status may be due to renal failure as well as cirrhosis. Given the patient's hypoalbuminemia and third spacing will transfuse albumin prior to diuretic. Possible element of intervascular volume depletion so will continue to gently hydrate to appreciate nephrology input with this. (4) Abdominal wall skin ulcer Qualifiers: Non-pressure ulcer stage: unspecified non-pressure ulcer stage Qualified Code(s): L98.499 - Non-pressure chronic ulcer of skin of other sites with unspecified severity Is this a current diagnosis for this admission?: YesPlan: Do appreciate surgery's input with this. (5) Right foot ulcer Qualifiers: Non-pressure ulcer stage: unspecified non-pressure ulcer stage Qualified Code(s): L97.519 - Non-pressure chronic ulcer of other part of right foot with unspecified severity Is this a current diagnosis for this admission?: YesPlan: Do appreciate surgery's input on this will continue to follow. (6) Cellulitis of right leg Is this a current diagnosis for this admission?: YesPlan: Will continue current antibiotic coverage till cultures return. 09/27/16 10:00 Cefepime 1 gm/D5w RTU [Maxipime RTU 1 gm/D5w 50 ml Premix Bag] 1 gm in 50 ml IV DAILY 09/27/16 12:00 Vancomycin HCl [Vancocin Inj 1000 mg Vial] 1,250 mg Dextrose 5%-Water [D5w 250 ml IV Soln] 250 ml IV Q36H (7) Elevated troponin Is this a current diagnosis for this admission?: Yes (9) Hyperkalemia Is this a current diagnosis for this admission?: YesPlan: ZUHAIR is on hold. This is trended down slightly with hydration will repeat chemistries later in follow (10) UTI (urinary tract infection) Qualifiers: Urinary tract infection type: site unspecified Hematuria presence: with hematuria Qualified Code(s): N39.0 - Urinary tract infection, site not specified Is this a current diagnosis for this admission?: YesPlan: Will await cultures and continue antibiotic coverage. (11) Foot ulcer, left Qualifiers: Non-pressure ulcer stage: unspecified non-pressure ulcer stage Qualified Code(s): L97.529 - Non-pressure chronic ulcer of other part of left foot with unspecified severity Is this a current diagnosis for this admission?: Yes (12) Anemia of chronic disease Is this a current diagnosis for this admission?: YesPlan: Will continue to follow. - Time Time Spent with patient: on this followup including assessment, plan, physical examination, and patient education is 35 minutes. Time Spent with patient: 35 or more minutes Medications reviewed and adjusted accordingly: Yes Disposition: The patient is a full code. Pending patient's symptomatology and diagnostic findings will reevaluate in the a.m.
[2016-09-27] MEDS: LACTOBACILLUS ACIDOPHILUS 250 MG TAB PO SCH (17:57)
[2016-09-28] MEDS: NORMAL SALINE 1000 ML 1,000 ML IV PRN (08:04)
[2016-09-28] MEDS: ASPIRIN 81 MG TABLET, CHEWABLE PO SCH (09:25)
[2016-09-28] MEDS: LACTOBACILLUS ACIDOPHILUS 250 MG TAB PO SCH ×2 (09:25→17:54)
[2016-09-28] MEDS: LEVOTHYROXINE SODIUM 0.075 MG TABLET PO SCH (09:25)
[2016-09-28] MEDS: LORATADINE 10 MG TABLET PO SCH (09:25)
[2016-09-28] MEDS: HEPARIN SOD (PORCINE) 5,000 UNIT/ML 1 ML SYRINGE SUBCUT SCH ×2 (09:41→22:19)
[2016-09-28] MEDS: NYSTATIN TOPICAL POWDER 15 GM TP SCH ×2 (09:41→17:54)
[2016-09-28] MEDS ORDERED: LEVOFLOXACIN 500 MG/D5W RTU 100 ML IV SCH ×2 (10:00→15:00)
[2016-09-28] MEDS: INSULIN LISPRO 100 UNIT/ML 3 ML VIAL SUBCUT PRN ×3 (13:37→22:19)
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
[2016-09-28] MEDS ORDERED: ALBUMIN HUMAN 50 ML IV SCH (15:07)
[2016-09-28] MEDS ORDERED: LINEZOLID 600 MG TABLET PO ONE (15:15)
--- NOTE | 2016-09-28 15:16 | PDOC PROGRESS REPORT ---
Subjective Progress Note for:: 09/28/16 Subjective:: The patient is currently lying in bed. Patient has been seen by nephrology today. The patient states she overall appears improved in comparison to when she came in. The patient states her breathing has improved. The patient denies any nausea, vomiting, diarrhea, shortness of breath, dizziness, chest pain, heart palpitations, fevers, or chills. The patient has remained afebrile. Blood pressures have been in a good range. The patient voices no other concerns at this time. Review of systems: The rest of the review of systems is negative. Physical Exam Vital Signs: Temp Pulse Resp BP Pulse Ox 98.1 F 88 18 129/39 H 100 09/28/16 11:03 09/28/16 11:03 09/28/16 11:03 09/28/16 11:03 09/28/16 11:03 Intake & Output 09/26/16 09/27/16 09/28/16 23:59 23:59 23:59 Intake Total 800 3533 1638 Output Total 600 1350 600 Balance 200 2183 1038 Weight 120 kg 132.2 kg 129.3 kg General appearance: PRESENT: no acute distress, cooperative, well-developed - Frail-appearing, well-nourished Head exam: PRESENT: atraumatic, normocephalic Eye exam: PRESENT: conjunctiva pink, EOMI, PERRLA. ABSENT: scleral icterus Ear exam: PRESENT: normal external ear exam Mouth exam: PRESENT: moist, tongue midline Neck exam: PRESENT: JVD - To the level of the right ear. ABSENT: carotid bruit , thyromegaly Respiratory exam: PRESENT: clear to auscultation karoline, symmetrical, unlabored. ABSENT: rales, rhonchi, tachypnea, wheezes Cardiovascular exam: PRESENT: RRR. ABSENT: diastolic murmur, rubs, systolic murmur Pulses: PRESENT: normal dorsalis pedis pul Vascular exam: PRESENT: normal capillary refill GI/Abdominal exam: PRESENT: normal bowel sounds, soft. ABSENT: distended, guarding, mass, organolmegaly, rebound, tenderness Rectal exam: PRESENT: deferred Extremities exam: PRESENT: full ROM, pedal edema, +2 edema. ABSENT: calf tenderness, clubbing Neurological exam: PRESENT: alert, awake, oriented to person, oriented to place , oriented to time, oriented to situation, CN II-XII grossly intact. ABSENT: motor sensory deficit Psychiatric exam: PRESENT: appropriate affect, normal mood. ABSENT: homicidal ideation, suicidal ideation Skin exam: PRESENT: dry, intact, warm. ABSENT: cyanosis, rash. Dressings are dry and intact. Results Laboratory Results: 09/27/16 12:45 09/27/16 12:45 09/26/16 02:35 Nasophary (Mrsa Only) MRSA Surveillance Culture - Final MRSA RECOVERED 09/26/16 09/26/16 09/26/16 00:42 00:42 06:31 Creatine Kinase 93 CK-MB (CK-2) 1.89 Troponin I 0.047 0.051 Impressions: Renal Ultrasound 09/25/16 00:00 IMPRESSION: No evidence for hydronephrosis. Ascites. Chest X-Ray 09/25/16 13:20 IMPRESSION: Trace bilateral pleural effusions with bibasilar airspace disease, likely atelectasis. Abdomen Ultrasound 09/26/16 00:00 IMPRESSION: COARSENED LIVER ECHOTEXTURE WITH NODULAR CONTOUR SUGGESTIVE OF CIRRHOSIS. MILD ASCITES. NO SONOGRAPHIC EVIDENCE OF CHOLECYSTITIS. Paracentesis Ultrasound 09/27/16 00:00 IMPRESSION: Successful ultrasound-guided paracentesis Assessment & Plan - Diagnosis (1) Cirrhosis Qualifiers: Hepatic cirrhosis type: unspecified hepatic cirrhosis Ascites presence : with ascites Qualified Code(s): K74.60 - Unspecified cirrhosis of liver Is this a current diagnosis for this admission?: YesPlan: This is not of alcohol etiology as the patient has not drank. Patient denies any known history of hepatitis. The patient does not have a known underlying autoimmune disease. High suspicion for underlying hepatic steatosis secondary to fatty liver. Have obtained hepatitis antibodies as well as IgG level. Will benefit from GI evaluation. (2) Acute renal failure Qualifiers: Acute renal failure type: unspecified Qualified Code(s): N17.9 - Acute kidney failure, unspecified Is this a current diagnosis for this admission?: YesPlan: Appears the patient's baseline creatinine is in the 1.9 range. The patient may actually be intravascularly volume depleted in spite of anasarca. Will continue to hold ZUAHIR inhibitor and await nephrology input. (3) Anasarca Is this a current diagnosis for this admission?: YesPlan: Secondary to #1. It appears that the patient's peripheral edema is not be of cardiac etiology. The patient's echocardiogram obtained in July 2016 appears to be unremarkable. Please see a copy of the report on the chart. The patient's volume status may be due to renal failure as well as cirrhosis. Given the patient's hypoalbuminemia and third spacing will transfuse albumin prior to diuretic. Possible element of intervascular volume depletion so will continue to gently hydrate to appreciate nephrology input with this. (4) Abdominal wall skin ulcer Qualifiers: Non-pressure ulcer stage: unspecified non-pressure ulcer stage Qualified Code(s): L98.499 - Non-pressure chronic ulcer of skin of other sites with unspecified severity Is this a current diagnosis for this admission?: YesPlan: Do appreciate surgery's input with this. (5) Right foot ulcer Qualifiers: Non-pressure ulcer stage: unspecified non-pressure ulcer stage Qualified Code(s): L97.519 - Non-pressure chronic ulcer of other part of right foot with unspecified severity Is this a current diagnosis for this admission?: YesPlan: Do appreciate surgery's input on this will continue to follow. (6) Cellulitis of right leg Is this a current diagnosis for this admission?: YesPlan: Given cultures of MRSA will transition to Zyvox since the patient has been found also have VRE. Will follow platelet since the patient will be started on Zyvox. (7) Elevated troponin Is this a current diagnosis for this admission?: Yes (8) Hyperkalemia Is this a current diagnosis for this admission?: YesPlan: ZUHAIR is on hold. This is trended down slightly with hydration will repeat chemistries later in follow (9) UTI (urinary tract infection) Qualifiers: Urinary tract infection type: site unspecified Hematuria presence: with hematuria Qualified Code(s): N39.0 - Urinary tract infection, site not specified Is this a current diagnosis for this admission?: YesPlan: This is coming back as VRE will treat with Zyvox (10) Foot ulcer, left Qualifiers: Non-pressure ulcer stage: unspecified non-pressure ulcer stage Qualified Code(s): L97.529 - Non-pressure chronic ulcer of other part of left foot with unspecified severity Is this a current diagnosis for this admission?: Yes (11) Anemia of chronic disease Is this a current diagnosis for this admission?: YesPlan: Will continue to follow. (12) Vancomycin resistant Enterococcus Is this a current diagnosis for this admission?: YesPlan: UTI the patient on Zyvox. Will check platelets and follow - Time Time Spent with patient: on this followup including assessment, plan, physical examination, specialty collaboration, and patient education is 35 minutes. Time Spent with patient: 35 or more minutes Medications reviewed and adjusted accordingly: Yes Disposition: The patient is a full code. Pending patient's symptomatology and diagnostic findings will reevaluate in the a.m.
[2016-09-28] MEDS: ACETAMINOPHEN 325 MG TABLET PO PRN (15:17)
[2016-09-28] MEDS ORDERED: FUROSEMIDE INJ/PF 40 MG/4 ML SDV IV ONE (15:30)
[2016-09-28] MEDS: ALBUMIN HUMAN 50 ML IV SCH ×3 (17:53→20:14)
[2016-09-28] MEDS: LINEZOLID 600 MG TABLET PO SCH (22:19)
[2016-09-29 05:19] LABS: ALANINE AMINOTRANSFERASE 46 U/L (9-52); ALKALINE PHOSPHATASE 117 U/L (38-126); ANION GAP 10 (5-19); ASPARTATE AMINO TRANSFERASE 33 U/L (14-36); BILIRUBIN,TOTAL 0.6 mg/dL (0.2-1.3); BLOOD UREA NITROGEN 53 mg/dL (7-20); CALCIUM 8.1 mg/dL (8.4-10.2); CARBON DIOXIDE 20 mmol/L (22-30); CHLORIDE 112 mmol/L (98-107); CREATININE RESULT 1.99 mg/dL (0.52-1.25); GLUCOSE 116 mg/dL (75-110); MAGNESIUM 1.3 mg/dL (1.6-2.3); POTASSIUM 4.4 mmol/L (3.6-5.0); SODIUM 142.3 mmol/L (137-145); TOTAL PROTEIN 4.7 g/dL (6.3-8.2)
[2016-09-29 06:39] LABS: HEMATOCRIT 24.5 % (36.0-47.0); HEMOGLOBIN 8.1 g/dL (12.0-15.5); HGB HCT DIFFERENCE -0.2; MEAN CORPUSCULAR HEMOGLOBIN 29.8 pg (27.0-33.4); MEAN CORPUSCULAR VOLUME 90 fl (80-97); RED BLOOD COUNT 2.71 10^6/uL (3.72-5.28); WHITE BLOOD COUNT 6.3 10^3/uL (4.0-10.5)
--- NOTE | 2016-09-29 09:01 | PDOC PROGRESS REPORT ---
Subjective Progress Note for:: 09/29/16 Subjective:: Patient states she's feeling good No abdominal pain ,no chest pain ,shortness of breath ,palpitations. She feels extremely weak though Before admission she is to ambulate with a walker Physical Exam Vital Signs: Temp Pulse Resp BP Pulse Ox 97.9 F 94 22 H 117/37 L 98 09/29/16 07:25 09/29/16 07:25 09/29/16 07:25 09/29/16 07:25 09/29/16 07:25 Intake & Output 09/28/16 09/29/16 09/30/16 00:59 00:59 00:59 Intake Total 3383 2568 627 Output Total 1200 1540 400 Balance 2183 1028 227 Weight 132.2 kg 129.3 kg 132.8 kg General appearance: PRESENT: no acute distress, well-nourished, other - Looks chronically ill Head exam: PRESENT: atraumatic, normocephalic Eye exam: PRESENT: conjunctiva pale - Name. Thank you is otherwise, EOMI, PERRLA. ABSENT: scleral icterus Ear exam: PRESENT: normal external ear exam Mouth exam: PRESENT: moist, tongue midline Neck exam: ABSENT: carotid bruit, JVD, lymphadenopathy, thyromegaly Respiratory exam: PRESENT: clear to auscultation karoline. ABSENT: rales, rhonchi, wheezes Cardiovascular exam: PRESENT: RRR. ABSENT: diastolic murmur, rubs, systolic murmur Pulses: PRESENT: normal dorsalis pedis pul Vascular exam: PRESENT: normal capillary refill GI/Abdominal exam: PRESENT: normal bowel sounds, soft. ABSENT: distended, guarding, mass, organolmegaly, rebound, tenderness Rectal exam: PRESENT: deferred Extremities exam: PRESENT: full ROM. ABSENT: calf tenderness, clubbing, pedal edema Neurological exam: PRESENT: alert, awake, oriented to person, oriented to place , oriented to time, oriented to situation, CN II-XII grossly intact. ABSENT: motor sensory deficit Psychiatric exam: PRESENT: appropriate affect, normal mood. ABSENT: homicidal ideation, suicidal ideation Skin exam: PRESENT: dry, intact, warm. ABSENT: cyanosis, rash Results Laboratory Results: 09/29/16 06:31 09/29/16 04:07 09/29/16 09/29/16 09/29/16 04:07 04:07 06:31 WBC Cancelled 6.3 RBC Cancelled 2.71 L Hgb Cancelled 8.1 L Hct Cancelled 24.5 L MCV Cancelled 90 MCH Cancelled 29.8 MCHC Cancelled 33.0 RDW Cancelled 23.0 H Plt Count Cancelled 128 L Sodium 142.3 Potassium 4.4 Chloride 112 H Carbon Dioxide 20 L Anion Gap 10 BUN 53 H Creatinine 1.99 H Est GFR ( Amer) 30 L Est GFR (Non-Af Amer) 25 L Glucose 116 H Calcium 8.1 L Magnesium 1.3 L Total Bilirubin 0.6 AST 33 ALT 46 Alkaline Phosphatase 117 Total Protein 4.7 L Albumin 2.0 L 09/26/16 02:35 Nasophary (Mrsa Only) MRSA Surveillance Culture - Final MRSA RECOVERED 09/26/16 09/26/16 09/26/16 00:42 00:42 06:31 Creatine Kinase 93 CK-MB (CK-2) 1.89 Troponin I 0.047 0.051 Impressions: Renal Ultrasound 09/25/16 00:00 IMPRESSION: No evidence for hydronephrosis. Ascites. Chest X-Ray 09/25/16 13:20 IMPRESSION: Trace bilateral pleural effusions with bibasilar airspace disease, likely atelectasis. Abdomen Ultrasound 09/26/16 00:00 IMPRESSION: COARSENED LIVER ECHOTEXTURE WITH NODULAR CONTOUR SUGGESTIVE OF CIRRHOSIS. MILD ASCITES. NO SONOGRAPHIC EVIDENCE OF CHOLECYSTITIS. Paracentesis Ultrasound 09/27/16 00:00 IMPRESSION: Successful ultrasound-guided paracentesis Assessment & Plan - Diagnosis (1) Acute kidney injury superimposed on chronic kidney disease Is this a current diagnosis for this admission?: Yes (2) Anasarca Is this a current diagnosis for this admission?: Yes (3) Anemia of chronic disease Is this a current diagnosis for this admission?: Yes (4) Cirrhosis Qualifiers: Hepatic cirrhosis type: unspecified hepatic cirrhosis Ascites presence : with ascites Qualified Code(s): K74.60 - Unspecified cirrhosis of liver Is this a current diagnosis for this admission?: Yes (5) UTI (urinary tract infection) Qualifiers: Urinary tract infection type: site unspecified Hematuria presence: with hematuria Qualified Code(s): N39.0 - Urinary tract infection, site not specified Is this a current diagnosis for this admission?: Yes (6) Vancomycin resistant Enterococcus Is this a current diagnosis for this admission?: Yes - Time Time Spent with patient: We will continue present management at this time PT evaluation requested Patient likely will need short-term rehabilitation as she so debilitated We suspect that she may be discharged within 48-72 hours Time Spent with patient: 25-34 minutes
[2016-09-29] MEDS: NORMAL SALINE 1000 ML 1,000 ML IV PRN (09:09)
[2016-09-29] MEDS: LEVOTHYROXINE SODIUM 0.075 MG TABLET PO SCH (09:09)
[2016-09-29] MEDS: LINEZOLID 600 MG TABLET PO SCH ×2 (09:09→21:44)
[2016-09-29] MEDS: LACTOBACILLUS ACIDOPHILUS 250 MG TAB PO SCH ×2 (09:09→17:43)
[2016-09-29] MEDS: ASPIRIN 81 MG TABLET, CHEWABLE PO SCH (09:09)
[2016-09-29] MEDS: SENNOSIDES/DOCUSATE 8.6-50 MG 1 EACH TABLET PO SCH ×2 (09:10→17:43)
[2016-09-29] MEDS: LORATADINE 10 MG TABLET PO SCH (09:10)
[2016-09-29] MEDS: POLYETHYLENE GLYCOL 3350 POWDER 17 GM/1 PACKET PO SCH (09:10)
[2016-09-29] MEDS: NYSTATIN TOPICAL POWDER 15 GM TP SCH ×2 (09:12→17:44)
[2016-09-29] MEDS: HEPARIN SOD (PORCINE) 5,000 UNIT/ML 1 ML SYRINGE SUBCUT SCH ×2 (09:13→21:44)
[2016-09-29] MEDS: INSULIN LISPRO 100 UNIT/ML 3 ML VIAL SUBCUT PRN ×2 (10:54→17:44)
--- NOTE | 2016-09-29 17:03 | PDOC PROGRESS REPORT ---
Subjective Progress Note for:: 09/29/16 Subjective:: Patient has so far stable. She started some of those shakes and supplements. She doesn't really have any much complaints. She seems to be fairly comfortable. Physical Exam Vital Signs: Temp Pulse Resp BP Pulse Ox 98.4 F 92 20 117/43 L 100 09/29/16 15:27 09/29/16 15:27 09/29/16 15:27 09/29/16 15:27 09/29/16 15:27 Intake & Output 09/28/16 09/29/16 09/30/16 06:59 06:59 06:59 Intake Total 2751 2427 320 Output Total 1100 1740 400 Balance 1651 687 -80 Weight 129.3 kg 132.8 kg Exam: General appearance: PRESENT: no acute distress, cooperative, well-developed, well-nourished Head exam: PRESENT: atraumatic, normocephalic Eye exam: PRESENT: conjunctiva pale, PERRLA. ABSENT: scleral icterus Neck exam: ABSENT: JVD Respiratory exam: PRESENT: Diminished breath sounds. ABSENT: crackles, rales, rhonchi, unlabored, wheezes Cardiovascular exam: PRESENT: Regular rate rhythm -+S1, +S2. ABSENT: diastolic murmur, systolic murmur GI/Abdominal exam: PRESENT: normal bowel sounds, soft. ABSENT: guarding, mass, tenderness Extremities exam: Grade 1 bilateral PE edema, unchanged Neurological exam: PRESENT: alert, awake, oriented to person, place and time. Skin exam: PRESENT: dry, warm, Results Laboratory Results: 09/29/16 06:31 09/29/16 04:07 09/29/16 09/29/16 09/29/16 04:07 04:07 06:31 WBC Cancelled 6.3 RBC Cancelled 2.71 L Hgb Cancelled 8.1 L Hct Cancelled 24.5 L MCV Cancelled 90 MCH Cancelled 29.8 MCHC Cancelled 33.0 RDW Cancelled 23.0 H Plt Count Cancelled 128 L Sodium 142.3 Potassium 4.4 Chloride 112 H Carbon Dioxide 20 L Anion Gap 10 BUN 53 H Creatinine 1.99 H Est GFR ( Amer) 30 L Est GFR (Non-Af Amer) 25 L Glucose 116 H Calcium 8.1 L Magnesium 1.3 L Total Bilirubin 0.6 AST 33 ALT 46 Alkaline Phosphatase 117 Total Protein 4.7 L Albumin 2.0 L 09/26/16 09/26/16 09/26/16 00:42 00:42 06:31 Creatine Kinase 93 CK-MB (CK-2) 1.89 Troponin I 0.047 0.051 Impressions: Renal Ultrasound 09/25/16 00:00 IMPRESSION: No evidence for hydronephrosis. Ascites. Chest X-Ray 09/25/16 13:20 IMPRESSION: Trace bilateral pleural effusions with bibasilar airspace disease, likely atelectasis. Abdomen Ultrasound 09/26/16 00:00 IMPRESSION: COARSENED LIVER ECHOTEXTURE WITH NODULAR CONTOUR SUGGESTIVE OF CIRRHOSIS. MILD ASCITES. NO SONOGRAPHIC EVIDENCE OF CHOLECYSTITIS. Paracentesis Ultrasound 09/27/16 00:00 IMPRESSION: Successful ultrasound-guided paracentesis Assessment & Plan - Diagnosis (1) Acute kidney injury superimposed on chronic kidney disease Is this a current diagnosis for this admission?: YesPlan: This could be secondary to intravascular volume depletion due to her presentation initially. Patient is currently nonoliguric. Her kidney function is also improving, now at baseline based from her labs and [facility]. Her real baseline is really unknown at this point. He seems to have mild proteinuria but not nonnephrotic range. Risk factors for underlying chronic kidney disease include diabetes, hypertension, and vascular disease. Encouraged to increase oral fluid intake. Cautious IV fluid hydration being done should be closely monitored so not to add to the patient's third spacing . I think the patient needs to be have increase protein intake now taking some supplements. Give IV albumin as necessary at least once a day. She does not seem to need any much diuretics regularly at this time. She does not have any indication for any renal replacement therapy as well. We will get a urine for protein and creatinine ratio from random urine specimen. IV antibiotic doses needs to be adjusted according to the patient's kidney function. Continue to hold ZUHAIR inhibitor as for now. Avoid further nephrotoxic agents. (2) Prerenal azotemia Is this a current diagnosis for this admission?: Yes (3) Hypoalbuminemia Is this a current diagnosis for this admission?: YesPlan: This could be due to underlying cirrhosis or nutritional deficiency. (4) Abdominal wall skin ulcer Qualifiers: Non-pressure ulcer stage: unspecified non-pressure ulcer stage Qualified Code(s): L98.499 - Non-pressure chronic ulcer of skin of other sites with unspecified severity Is this a current diagnosis for this admission?: YesPlan: Patient is currently on Zyvox. (5) Cirrhosis Qualifiers: Hepatic cirrhosis type: unspecified hepatic cirrhosis Ascites presence : with ascites Qualified Code(s): K74.60 - Unspecified cirrhosis of liver Is this a current diagnosis for this admission?: Yes (6) Foot ulcer, left Qualifiers: Non-pressure ulcer stage: unspecified non-pressure ulcer stage Qualified Code(s): L97.529 - Non-pressure chronic ulcer of other part of left foot with unspecified severity Is this a current diagnosis for this admission?: Yes (7) Right foot ulcer Qualifiers: Non-pressure ulcer stage: unspecified non-pressure ulcer stage Qualified Code(s): L97.519 - Non-pressure chronic ulcer of other part of right foot with unspecified severity Is this a current diagnosis for this admission?: Yes (8) UTI (urinary tract infection) Qualifiers: Urinary tract infection type: site unspecified Hematuria presence: with hematuria Qualified Code(s): N39.0 - Urinary tract infection, site not specified Is this a current diagnosis for this admission?: YesPlan: Secondary to VRE currently and antibiotics. Levaquin dose adjusted according to kidney function. - Notes Notes: No further recommendation from nephrology standpoint. Patient is almost at baseline kidney function from when she was discharged from the [facility]. I will sign off at this time. Please don't hesitate to call me again if they can be of any further help. If the patient wishes I'll be happy to see her in the office to 3 weeks after discharge with repeat CBC and BMP at least. - Time Time with patient: 15-25 minutes
[2016-09-30 04:29] LABS: ANION GAP 9 (5-19); BLOOD UREA NITROGEN 50 mg/dL (7-20); CARBON DIOXIDE 20 mmol/L (22-30); CHLORIDE 112 mmol/L (98-107); CREATININE RESULT 1.65 mg/dL (0.52-1.25); GLUCOSE 153 mg/dL (75-110); POTASSIUM 4.4 mmol/L (3.6-5.0); SODIUM 141.3 mmol/L (137-145)
[2016-09-30] MEDS: NORMAL SALINE 1000 ML 1,000 ML IV PRN ×2 (04:31→22:45)
[2016-09-30 04:42] LABS: HEMATOCRIT 23.6 % (36.0-47.0); HGB HCT DIFFERENCE -0.2; MEAN CORPUSCULAR HEMOGLOBIN 30.1 pg (27.0-33.4); MEAN CORPUSCULAR HGB CONC 33.1 g/dL (32.0-36.0); MEAN CORPUSCULAR VOLUME 91 fl (80-97); RED BLOOD COUNT 2.59 10^6/uL (3.72-5.28); WHITE BLOOD COUNT 7.3 10^3/uL (4.0-10.5)
[2016-09-30 04:58] LABS: BAND NEUTROPHILS % (MANUAL) 1 % (3-5); BASOPHILS % (MANUAL) 0 % (0-2); LYMPHOCYTES % (MANUAL) 20 % (13-45); TOTAL CELLS COUNTED 100
[2016-09-30 04:59] LABS: ANISOCYTOSIS 3+; TOXIC GRANULATION 1+; TOXIC VACUOLATION PRESENT
[2016-09-30 05:00] LABS: OVALOCYTES SLIGHT; POIKILOCYTOSIS SLIGHT; SCHISTOCYTES SLIGHT; TEAR DROP CELLS SLIGHT
[2016-09-30 05:02] LABS: HEMOGLOBIN 7.8 g/dL (12.0-15.5)
[2016-09-30 05:03] LABS: EOSINOPHILS % (MANUAL) 31 % (0-6)
[2016-09-30 07:12] LABS: IMMUNOGLOBULIN G 1398 mg/dL (700-1600)
[2016-09-30] MEDS: LACTOBACILLUS ACIDOPHILUS 250 MG TAB PO SCH ×2 (10:10→17:39)
[2016-09-30] MEDS: LINEZOLID 600 MG TABLET PO SCH ×2 (10:10→21:51)
[2016-09-30] MEDS: ASPIRIN 81 MG TABLET, CHEWABLE PO SCH (10:10)
[2016-09-30] MEDS: SENNOSIDES/DOCUSATE 8.6-50 MG 1 EACH TABLET PO SCH ×2 (10:10→17:39)
[2016-09-30] MEDS: LORATADINE 10 MG TABLET PO SCH (10:10)
[2016-09-30] MEDS: LEVOTHYROXINE SODIUM 0.075 MG TABLET PO SCH (10:10)
[2016-09-30] MEDS: HEPARIN SOD (PORCINE) 5,000 UNIT/ML 1 ML SYRINGE SUBCUT SCH (10:11)
[2016-09-30] MEDS: NYSTATIN TOPICAL POWDER 15 GM TP SCH ×2 (10:11→17:40)
[2016-09-30] MEDS: POLYETHYLENE GLYCOL 3350 POWDER 17 GM/1 PACKET PO SCH (10:11)
[2016-09-30 10:48] LABS: PATH REVIEW PATHOLOGIST REVIEWED
[2016-09-30] MEDS: INSULIN LISPRO 100 UNIT/ML 3 ML VIAL SUBCUT PRN ×2 (13:37→16:53)
[2016-09-30] MEDS ORDERED: LEVOFLOXACIN 500 MG/D5W RTU 500 MG/100 ML RTUPB IV SCH (14:00)
--- NOTE | 2016-09-30 18:23 | PDOC PROGRESS REPORT ---
Subjective Progress Note for:: 09/30/16 Subjective:: Still feels weak otherwise no chest pain shortness of breath abdominal pain Physical Exam Vital Signs: Temp Pulse Resp BP Pulse Ox 97.9 F 91 20 125/38 L 100 09/30/16 15:32 09/30/16 15:32 09/30/16 15:32 09/30/16 15:32 09/30/16 15:32 Intake & Output 09/29/16 09/30/16 10/01/16 00:59 00:59 00:59 Intake Total 2568 2314 2104 Output Total 1540 1150 550 Balance 1028 1164 1554 Weight 129.3 kg 132.8 kg 130.1 kg General appearance: PRESENT: no acute distress, well-developed, well-nourished Head exam: PRESENT: atraumatic, normocephalic Eye exam: PRESENT: conjunctiva pink, EOMI, PERRLA. ABSENT: scleral icterus Ear exam: PRESENT: normal external ear exam Mouth exam: PRESENT: moist, tongue midline Neck exam: ABSENT: carotid bruit, JVD, lymphadenopathy, thyromegaly Respiratory exam: PRESENT: clear to auscultation karoline. ABSENT: rales, rhonchi, wheezes Cardiovascular exam: PRESENT: RRR. ABSENT: diastolic murmur, rubs, systolic murmur Pulses: PRESENT: normal dorsalis pedis pul Vascular exam: PRESENT: normal capillary refill GI/Abdominal exam: PRESENT: normal bowel sounds, soft. ABSENT: distended, guarding, mass, organolmegaly, rebound, tenderness Rectal exam: PRESENT: deferred Extremities exam: PRESENT: full ROM, other - dressings intact. ABSENT: calf tenderness, clubbing, pedal edema Neurological exam: PRESENT: alert, awake, oriented to person, oriented to place , oriented to time, oriented to situation, CN II-XII grossly intact. ABSENT: motor sensory deficit Psychiatric exam: PRESENT: appropriate affect, normal mood. ABSENT: homicidal ideation, suicidal ideation Skin exam: PRESENT: dry, intact, warm. ABSENT: cyanosis, rash Results Laboratory Results: 09/30/16 03:52 09/30/16 03:52 09/30/16 09/30/16 03:52 03:52 WBC 7.3 RBC 2.59 L Hgb 7.8 L Hct 23.6 L MCV 91 MCH 30.1 MCHC 33.1 RDW 23.0 H Plt Count 122 L Seg Neutrophils % Not Reportable Lymphocytes % Not Reportable Monocytes % Not Reportable Eosinophils % Not Reportable Basophils % Not Reportable Absolute Neutrophils Not Reportable Absolute Lymphocytes Not Reportable Absolute Monocytes Not Reportable Absolute Eosinophils Not Reportable Absolute Basophils Not Reportable Sodium 141.3 Potassium 4.4 Chloride 112 H Carbon Dioxide 20 L Anion Gap 9 BUN 50 H Creatinine 1.65 H Est GFR ( Amer) 37 L Est GFR (Non-Af Amer) 31 L Glucose 153 H Calcium 8.0 L 09/26/16 09/26/16 09/26/16 00:42 00:42 06:31 Creatine Kinase 93 CK-MB (CK-2) 1.89 Troponin I 0.047 0.051 Impressions: Renal Ultrasound 09/25/16 00:00 IMPRESSION: No evidence for hydronephrosis. Ascites. Chest X-Ray 09/25/16 13:20 IMPRESSION: Trace bilateral pleural effusions with bibasilar airspace disease, likely atelectasis. Abdomen Ultrasound 09/26/16 00:00 IMPRESSION: COARSENED LIVER ECHOTEXTURE WITH NODULAR CONTOUR SUGGESTIVE OF CIRRHOSIS. MILD ASCITES. NO SONOGRAPHIC EVIDENCE OF CHOLECYSTITIS. Paracentesis Ultrasound 09/27/16 00:00 IMPRESSION: Successful ultrasound-guided paracentesis Assessment & Plan - Diagnosis (1) Acute kidney injury superimposed on chronic kidney disease Is this a current diagnosis for this admission?: Yes (2) Anasarca Is this a current diagnosis for this admission?: Yes (3) Anemia of chronic disease Is this a current diagnosis for this admission?: Yes (4) Cirrhosis Qualifiers: Hepatic cirrhosis type: unspecified hepatic cirrhosis Ascites presence : with ascites Qualified Code(s): K74.60 - Unspecified cirrhosis of liver Is this a current diagnosis for this admission?: Yes (5) UTI (urinary tract infection) Qualifiers: Urinary tract infection type: site unspecified Hematuria presence: with hematuria Qualified Code(s): N39.0 - Urinary tract infection, site not specified Is this a current diagnosis for this admission?: Yes (6) Vancomycin resistant Enterococcus Is this a current diagnosis for this admission?: Yes - Time Time Spent with patient: Renal function is improved; H&H is dropping likely because of hydration We will order an anemia workup If her H&H is lower tomorrow patient may need to be transfused 2 units of packed red cells Continue physical therapy Patient does not wish to go to rehabilitation Time Spent with patient: 15-24 minutes
[2016-09-30] MEDS ORDERED: SPIRONOLACTONE 25 MG TABLET PO ONE (20:30)
[2016-09-30] MEDS: FUROSEMIDE INJ/PF 20 MG/2 ML SDV IV SCH (21:51)
[2016-09-30] MEDS: IPRATROPIUM/ALBUTEROL 0.5-2.5 MG/3 ML AMPUL NEB PRN (23:56)
[2016-10-01 06:40] LABS: PROTHROMBIN TIME 15.3 SEC (11.4-15.4)
[2016-10-01 06:41] LABS: PARTIAL THROMBOPLASTIN TIME 29.9 SEC (23.5-35.8)
[2016-10-01 07:55] LABS: FOLATE > 20.00 ng/mL (>2.76)
--- NOTE | 2016-10-01 09:53 | PDOC PROGRESS REPORT ---
Subjective Progress Note for:: 10/01/16 Subjective:: Patient was short of breath last evening and on physical examination had wheezes bilaterally ; we felt that this likely she was getting fluid overloaded Lasix and Aldactone were initiated Duonebs were ordered This morning she states shortness of breath has improved; wheezes disappeared She had 350 ml urinary output during the night Patient is scheduled for paracentesis Physical Exam Vital Signs: Temp Pulse Resp BP Pulse Ox 97.6 F 90 19 120/34 L 100 10/01/16 08:02 10/01/16 08:02 10/01/16 08:02 10/01/16 08:02 10/01/16 08:02 Intake & Output 09/30/16 10/01/16 10/02/16 00:59 00:59 00:59 Intake Total 2314 2134 754 Output Total 1150 750 180 Balance 1164 1384 574 Weight 132.8 kg 130.1 kg 128.8 kg General appearance: PRESENT: no acute distress, obese, other - Looks chronically ill and pale Head exam: PRESENT: atraumatic, normocephalic Eye exam: PRESENT: conjunctiva pale Neck exam: ABSENT: carotid bruit, JVD, lymphadenopathy, thyromegaly Respiratory exam: PRESENT: clear to auscultation karoline. ABSENT: rales, rhonchi, wheezes Cardiovascular exam: PRESENT: RRR. ABSENT: diastolic murmur, rubs, systolic murmur Pulses: PRESENT: normal dorsalis pedis pul GI/Abdominal exam: PRESENT: ascites, distended Extremities exam: PRESENT: other - petechial rash visualized on the shins bilaterally Neurological exam: PRESENT: alert, awake, oriented to person, oriented to place , oriented to time, oriented to situation, CN II-XII grossly intact. ABSENT: motor sensory deficit Psychiatric exam: PRESENT: appropriate affect, normal mood. ABSENT: homicidal ideation, suicidal ideation Results Laboratory Results: 09/30/16 03:52 09/30/16 03:52 09/30/16 10/01/16 10/01/16 03:52 06:13 06:13 WBC 7.3 RBC 2.59 L Hgb 7.8 L Hct 23.6 L MCV 91 MCH 30.1 MCHC 33.1 RDW 23.0 H Plt Count 122 L Retic Count (auto) 2.58 Absolute Retic 0.073 Iron 57 TIBC 229 L % Saturation 25 Ferritin 52.80 Vitamin B12 808.0 Folate > 20.00 09/26/16 09/26/16 09/26/16 00:42 00:42 06:31 Creatine Kinase 93 CK-MB (CK-2) 1.89 Troponin I 0.047 0.051 Impressions: Renal Ultrasound 09/25/16 00:00 IMPRESSION: No evidence for hydronephrosis. Ascites. Abdomen Ultrasound 09/26/16 00:00 IMPRESSION: COARSENED LIVER ECHOTEXTURE WITH NODULAR CONTOUR SUGGESTIVE OF CIRRHOSIS. MILD ASCITES. NO SONOGRAPHIC EVIDENCE OF CHOLECYSTITIS. Paracentesis Ultrasound 09/27/16 00:00 IMPRESSION: Successful ultrasound-guided paracentesis Chest X-Ray 09/30/16 19:06 IMPRESSION: Increased bilateral airspace disease -effusion at both lung bases. Assessment & Plan - Diagnosis (1) Acute kidney injury superimposed on chronic kidney disease Is this a current diagnosis for this admission?: YesPlan: Is improved ;patient is back to her baseline Discontinue IV fluids Resume Lasix and Aldactone (2) Anasarca Is this a current diagnosis for this admission?: Yes (3) Anemia of chronic disease Is this a current diagnosis for this admission?: YesPlan: Normal serum iron and ferritin B-12 Chronic anemia secondary to chronic liver disease and chronic renal insufficiency Thrombocytopenia secondary to chronic liver disease as well We discontinued Lovenox as platelets were only 122 Petechial rash likely to be secondary to vascular fragility Patient was having SCDs which were discontinued and replaced with TEDS (4) Cirrhosis Qualifiers: Hepatic cirrhosis type: unspecified hepatic cirrhosis Ascites presence : with ascites Qualified Code(s): K74.60 - Unspecified cirrhosis of liver Is this a current diagnosis for this admission?: YesPlan: Cirrhosis of the liver with ascites 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
[2016-10-01] MEDS ORDERED: SPIRONOLACTONE 25 MG TABLET PO SCH (10:00)
[2016-10-01] MEDS: IPRATROPIUM/ALBUTEROL 0.5-2.5 MG/3 ML AMPUL NEB PRN (10:02)
[2016-10-01] MEDS ORDERED: ALBUMIN HUMAN 50 ML IV SCH (11:00)
[2016-10-01 12:56] LABS: FLUID TYPE PERITONEAL
[2016-10-01 12:57] LABS: FLUID APPEARANCE SLIGHTLY HAZY; FLUID RBC AVERAGE 206.5; FLUID RBC DILUENT USED NONE USED; FLUID RBC DILUTION FACTOR 1; FLUID RBC SIDE 1 206; FLUID RBC SIDE 2 207; TOTAL RBC SQUARES COUNTED FLD 50
[2016-10-01] MEDS: SPIRONOLACTONE 25 MG TABLET PO SCH (13:28)
[2016-10-01] MEDS: LORATADINE 10 MG TABLET PO SCH (13:28)
[2016-10-01] MEDS: ASPIRIN 81 MG TABLET, CHEWABLE PO SCH (13:28)
[2016-10-01] MEDS: SENNOSIDES/DOCUSATE 8.6-50 MG 1 EACH TABLET PO SCH ×2 (13:29→17:57)
[2016-10-01] MEDS: LINEZOLID 600 MG TABLET PO SCH ×2 (13:29→21:53)
[2016-10-01] MEDS: POLYETHYLENE GLYCOL 3350 POWDER 17 GM/1 PACKET PO SCH (13:29)
[2016-10-01] MEDS: LACTOBACILLUS ACIDOPHILUS 250 MG TAB PO SCH ×2 (13:29→17:58)
[2016-10-01] MEDS: FUROSEMIDE INJ/PF 20 MG/2 ML SDV IV SCH ×2 (13:29→21:53)
[2016-10-01] MEDS: LEVOTHYROXINE SODIUM 0.075 MG TABLET PO SCH (13:29)
[2016-10-01] MEDS: ALBUMIN HUMAN 50 ML IV SCH ×4 (13:30→17:10)
[2016-10-01] MEDS: NYSTATIN TOPICAL POWDER 15 GM TP SCH ×2 (13:32→18:02)
[2016-10-01] MEDS: INSULIN LISPRO 100 UNIT/ML 3 ML VIAL SUBCUT PRN ×2 (18:02→21:54)
[2016-10-01] MEDS ORDERED: GABAPENTIN 300 MG CAPSULE PO ONE (19:15)
[2016-10-01 19:27] LABS: ANION GAP 10 (5-19); BLOOD UREA NITROGEN 50 mg/dL (7-20); CARBON DIOXIDE 22 mmol/L (22-30); CHLORIDE 110 mmol/L (98-107); CREATININE RESULT 1.55 mg/dL (0.52-1.25); GLUCOSE 197 mg/dL (75-110); MAGNESIUM 1.5 mg/dL (1.6-2.3); POTASSIUM 4.9 mmol/L (3.6-5.0); SODIUM 141.9 mmol/L (137-145)
[2016-10-01] MEDS: OXYCODONE HCL IR 5 MG TABLET PO PRN (22:45)
[2016-10-02] MEDS ORDERED: MAGNESIUM OXIDE 400 MG TABLET PO ONE (02:30)
[2016-10-02 04:18] LABS: HEMATOCRIT 26.2 % (36.0-47.0); HEMOGLOBIN 8.5 g/dL (12.0-15.5); HGB HCT DIFFERENCE -0.7; MEAN CORPUSCULAR HEMOGLOBIN 30.2 pg (27.0-33.4); MEAN CORPUSCULAR HGB CONC 32.4 g/dL (32.0-36.0); MEAN CORPUSCULAR VOLUME 93 fl (80-97); RED BLOOD COUNT 2.81 10^6/uL (3.72-5.28); RED CELL DISTRIBUTION WIDTH 23.3 % (11.5-14.0); WHITE BLOOD COUNT 10.5 10^3/uL (4.0-10.5)
[2016-10-02 04:41] LABS: ANION GAP 6 (5-19); BLOOD UREA NITROGEN 52 mg/dL (7-20); CALCIUM 8.4 mg/dL (8.4-10.2); CARBON DIOXIDE 25 mmol/L (22-30); CHLORIDE 111 mmol/L (98-107); CREATININE RESULT 1.48 mg/dL (0.52-1.25); GLUCOSE 170 mg/dL (75-110); POTASSIUM 4.8 mmol/L (3.6-5.0); SODIUM 141.8 mmol/L (137-145)
[2016-10-02 05:14] LABS: BASOPHILS % (MANUAL) 0 % (0-2); EOSINOPHILS % (MANUAL) 20 % (0-6); LYMPHOCYTES % (MANUAL) 19 % (13-45); TOTAL CELLS COUNTED 100
[2016-10-02 05:16] LABS: ANISOCYTOSIS 3+; OVALOCYTES 1+; PLATELET CLUMPS PRESENT; POIKILOCYTOSIS 2+; POLYCHROMASIA 1+; TOXIC GRANULATION SLIGHT
[2016-10-02] MEDS: IPRATROPIUM/ALBUTEROL 0.5-2.5 MG/3 ML AMPUL NEB PRN (05:19)
[2016-10-02] MEDS: GABAPENTIN 300 MG CAPSULE PO SCH ×2 (05:40→17:33)
[2016-10-02] MEDS: POLYETHYLENE GLYCOL 3350 POWDER 17 GM/1 PACKET PO SCH (09:21)
[2016-10-02] MEDS: LACTOBACILLUS ACIDOPHILUS 250 MG TAB PO SCH ×2 (09:21→17:33)
[2016-10-02] MEDS: SENNOSIDES/DOCUSATE 8.6-50 MG 1 EACH TABLET PO SCH ×2 (09:21→17:33)
[2016-10-02] MEDS: FUROSEMIDE INJ/PF 20 MG/2 ML SDV IV SCH ×2 (09:23→21:25)
[2016-10-02] MEDS: SPIRONOLACTONE 25 MG TABLET PO SCH (09:23)
[2016-10-02] MEDS: LEVOTHYROXINE SODIUM 0.075 MG TABLET PO SCH (09:23)
[2016-10-02] MEDS: ASPIRIN 81 MG TABLET, CHEWABLE PO SCH (09:23)
--- NOTE | 2016-10-02 09:23 | PDOC PROGRESS REPORT ---
Subjective Progress Note for:: 10/02/16 Subjective:: Patient feels a lot better since the paracentesis Shortness of breath has improved The vital signs have been stable. She still extremely weak; she does understand that she may not be discharged home and likely will go to short-term rehabilitation on Wednesday She had to bed offers Physical Exam Vital Signs: Temp Pulse Resp BP Pulse Ox 97.5 F 91 20 140/45 H 100 10/02/16 07:40 10/02/16 07:40 10/02/16 07:40 10/02/16 07:40 10/02/16 07:40 Intake & Output 10/01/16 10/02/16 10/03/16 00:59 00:59 00:59 Intake Total 2134 2907 2 Output Total 750 630 100 Balance 1384 2277 -98 Weight 130.1 kg 128.8 kg 124.2 kg General appearance: PRESENT: no acute distress, obese, other - Looks chronically ill Head exam: PRESENT: atraumatic, normocephalic Eye exam: PRESENT: conjunctiva pink, EOMI, PERRLA. ABSENT: scleral icterus Neck exam: ABSENT: carotid bruit, JVD, lymphadenopathy, thyromegaly Respiratory exam: PRESENT: clear to auscultation karoline. ABSENT: rales, rhonchi, wheezes Cardiovascular exam: PRESENT: bradycardia GI/Abdominal exam: PRESENT: ascites, normal bowel sounds. ABSENT: firm, guarding Neurological exam: PRESENT: alert, awake, oriented to person, oriented to place , oriented to time, oriented to situation, CN II-XII grossly intact. ABSENT: motor sensory deficit Results Laboratory Results: 10/02/16 03:50 10/02/16 03:50 10/01/16 10/01/16 10/02/16 11:00 19:00 03:50 WBC 10.5 RBC 2.81 L Hgb 8.5 L Hct 26.2 L MCV 93 MCH 30.2 MCHC 32.4 RDW 23.3 H Plt Count 134 L Seg Neutrophils % Not Reportable Lymphocytes % Not Reportable Monocytes % Not Reportable Eosinophils % Not Reportable Basophils % Not Reportable Absolute Neutrophils Not Reportable Absolute Lymphocytes Not Reportable Absolute Monocytes Not Reportable Absolute Eosinophils Not Reportable Absolute Basophils Not Reportable Sodium 141.9 Potassium 4.9 Chloride 110 H Carbon Dioxide 22 Anion Gap 10 BUN 50 H Creatinine 1.55 H Est GFR ( Amer) 40 L Est GFR (Non-Af Amer) 33 L Glucose 197 H Calcium 9.0 Magnesium 1.5 L Fluid Type PERITONEAL Fluid Source ASCITES Fluid Color STRAW Fluid Appearance SLIGHTLY HAZY Fluid Viscosity LIQUID Fluid WBC 225 Fluid RBC 1032 10/02/16 03:50 WBC RBC Hgb Hct MCV MCH MCHC RDW Plt Count Seg Neutrophils % Lymphocytes % Monocytes % Eosinophils % Basophils % Absolute Neutrophils Absolute Lymphocytes Absolute Monocytes Absolute Eosinophils Absolute Basophils Sodium 141.8 Potassium 4.8 Chloride 111 H Carbon Dioxide 25 Anion Gap 6 BUN 52 H Creatinine 1.48 H Est GFR ( Amer) 42 L Est GFR (Non-Af Amer) 35 L Glucose 170 H Calcium 8.4 Magnesium Fluid Type Fluid Source Fluid Color Fluid Appearance Fluid Viscosity Fluid WBC Fluid RBC 09/26/16 09/26/16 09/26/16 00:42 00:42 06:31 Creatine Kinase 93 CK-MB (CK-2) 1.89 Troponin I 0.047 0.051 Impressions: Renal Ultrasound 09/25/16 00:00 IMPRESSION: No evidence for hydronephrosis. Ascites. Abdomen Ultrasound 09/26/16 00:00 IMPRESSION: COARSENED LIVER ECHOTEXTURE WITH NODULAR CONTOUR SUGGESTIVE OF CIRRHOSIS. MILD ASCITES. NO SONOGRAPHIC EVIDENCE OF CHOLECYSTITIS. Chest X-Ray 09/30/16 19:06 IMPRESSION: Increased bilateral airspace disease -effusion at both lung bases. Paracentesis Ultrasound 10/01/16 08:00 IMPRESSION: Successful ultrasound-guided diagnostic and therapeutic paracentesis Assessment & Plan - Diagnosis (1) Acute kidney injury superimposed on chronic kidney disease Is this a current diagnosis for this admission?: Yes (2) Anasarca Is this a current diagnosis for this admission?: Yes (3) Anemia of chronic disease Is this a current diagnosis for this admission?: Yes (4) Cirrhosis Qualifiers: Hepatic cirrhosis type: unspecified hepatic cirrhosis Ascites presence : with ascites Qualified Code(s): K74.60 - Unspecified cirrhosis of liver Is this a current diagnosis for this admission?: Yes (5) UTI (urinary tract infection) Qualifiers: Urinary tract infection type: site unspecified Hematuria presence: with hematuria Qualified Code(s): N39.0 - Urinary tract infection, site not specified Is this a current diagnosis for this admission?: Yes (6) Vancomycin resistant Enterococcus Is this a current diagnosis for this admission?: Yes - Time Time Spent with patient: Continue the same management monitor K closely Continue physical therapy Patient may sit in the chair if able Patient will remain in the hospital over the weekend Time Spent with patient: 25-34 minutes
[2016-10-02] MEDS: INSULIN LISPRO 100 UNIT/ML 3 ML VIAL SUBCUT PRN ×3 (09:24→22:02)
[2016-10-02] MEDS: MAGNESIUM OXIDE 400 MG TABLET PO SCH (09:24)
[2016-10-02] MEDS: LINEZOLID 600 MG TABLET PO SCH ×2 (09:24→21:25)
[2016-10-02] MEDS: LORATADINE 10 MG TABLET PO SCH (09:24)
[2016-10-02] MEDS ORDERED: MAGNESIUM SULFATE/D5W 1 GM/100 ML RTUPB IV ONE (17:00)
[2016-10-02] MEDS: NYSTATIN TOPICAL POWDER 15 GM TP SCH ×2 (17:34→17:37)
[2016-10-02] MEDS: OXYCODONE HCL IR 5 MG TABLET PO PRN (21:25)
[2016-10-03 04:50] LABS: HEMATOCRIT 28.5 % (36.0-47.0); HEMOGLOBIN 9.1 g/dL (12.0-15.5); HGB HCT DIFFERENCE -1.2; MEAN CORPUSCULAR HEMOGLOBIN 30.3 pg (27.0-33.4); MEAN CORPUSCULAR VOLUME 95 fl (80-97); RED BLOOD COUNT 3.01 10^6/uL (3.72-5.28); RED CELL DISTRIBUTION WIDTH 24.1 % (11.5-14.0)
[2016-10-03 05:11] LABS: ANION GAP 10 (5-19); BLOOD UREA NITROGEN 56 mg/dL (7-20); CALCIUM 8.9 mg/dL (8.4-10.2); CARBON DIOXIDE 20 mmol/L (22-30); CHLORIDE 111 mmol/L (98-107); CREATININE RESULT 1.43 mg/dL (0.52-1.25); GLUCOSE 204 mg/dL (75-110); MAGNESIUM 1.7 mg/dL (1.6-2.3); POTASSIUM 4.7 mmol/L (3.6-5.0); SODIUM 140.8 mmol/L (137-145)
[2016-10-03 05:22] LABS: BAND NEUTROPHILS % (MANUAL) 4 % (3-5); BASOPHILS % (MANUAL) 0 % (0-2); EOSINOPHILS % (MANUAL) 31 % (0-6); LYMPHOCYTES % (MANUAL) 15 % (13-45); TOTAL CELLS COUNTED 100
[2016-10-03 05:24] LABS: ANISOCYTOSIS 3+; OVALOCYTES SLIGHT; POIKILOCYTOSIS SLIGHT; POLYCHROMASIA SLIGHT; SCHISTOCYTES SLIGHT
[2016-10-03] MEDS: GABAPENTIN 300 MG CAPSULE PO SCH (05:42)
[2016-10-03] MEDS ORDERED: FUROSEMIDE INJ/PF 20 MG/2 ML SDV IV ONE ×2 (08:14→10:00)
[2016-10-03] MEDS ORDERED: BISACODYL 10 MG SUPP.RECT PR PRN (08:16)
[2016-10-03] MEDS: IPRATROPIUM/ALBUTEROL 0.5-2.5 MG/3 ML AMPUL NEB PRN (08:57)
[2016-10-03] MEDS: ONDANSETRON HCL INJ/PF 4 MG/2 ML SDV IV PRN (09:41)
[2016-10-03] MEDS: POLYETHYLENE GLYCOL 3350 POWDER 17 GM/1 PACKET PO SCH (09:49)
[2016-10-03] MEDS: LACTOBACILLUS ACIDOPHILUS 250 MG TAB PO SCH (09:49)
[2016-10-03] MEDS: SENNOSIDES/DOCUSATE 8.6-50 MG 1 EACH TABLET PO SCH (09:49)
[2016-10-03] MEDS: MAGNESIUM OXIDE 400 MG TABLET PO SCH (09:50)
[2016-10-03] MEDS: SPIRONOLACTONE 25 MG TABLET PO SCH (09:50)
[2016-10-03] MEDS: ASPIRIN 81 MG TABLET, CHEWABLE PO SCH (09:50)
[2016-10-03] MEDS: LORATADINE 10 MG TABLET PO SCH (09:50)
[2016-10-03] MEDS: LEVOTHYROXINE SODIUM 0.075 MG TABLET PO SCH (09:50)
[2016-10-03] MEDS: LINEZOLID 600 MG TABLET PO SCH (09:50)
[2016-10-03] MEDS ORDERED: LACTULOSE SYRUP 20 GM/30 ML UDCUP PO SCH (10:00)
[2016-10-03] MEDS ORDERED: BISACODYL 10 MG SUPP.RECT PR ONE (10:00)
[2016-10-03] MEDS: INSULIN LISPRO 100 UNIT/ML 3 ML VIAL SUBCUT PRN ×2 (10:15→12:37)
--- NOTE | 2016-10-03 10:21 | EKG REPORT ---
SEVERITY:- OTHERWISE NORMAL ECG - SINUS TACHYCARDIA : Confirmed by: Alex Nuñez 03-Oct-2016 10:21:13
[2016-10-03] MEDS ORDERED: PHARMACY COMMUNICATION ORDER MC NR (13:30)
[2016-10-03] MEDS ORDERED: ACETAMINOPHEN 325 MG TABLET NG PRN (13:48)
[2016-10-03] MEDS ORDERED: DEXTROSE 40% GEL 15 GM TUBE NG PRN ×2 (13:49)
[2016-10-03] MEDS ORDERED: OXYCODONE HCL IR 5 MG TABLET NG PRN (13:52)
--- NOTE | 2016-10-03 14:33 | PDOC PROGRESS REPORT ---
Subjective Progress Note for:: 10/03/16 Subjective:: Patient is not feeling well today ; nauseous , vomited several times also short of breath with chest discomfort no fever or chills Physical Exam Vital Signs: Temp Pulse Resp BP Pulse Ox 98.5 F 108 H 24 H 148/40 H 98 10/03/16 11:38 10/03/16 11:38 10/03/16 11:38 10/03/16 11:38 10/03/16 11:38 Intake & Output 10/02/16 10/03/16 10/04/16 00:59 00:59 00:59 Intake Total 2907 1544 542 Output Total 630 450 300 Balance 2277 1094 242 Weight 128.8 kg 124.2 kg 124.6 kg General appearance: PRESENT: mild distress, other - looks ill pale , uncomfortable Head exam: PRESENT: atraumatic, normocephalic Eye exam: PRESENT: conjunctiva pale, EOMI, PERRLA. ABSENT: scleral icterus Ear exam: PRESENT: normal external ear exam Mouth exam: PRESENT: moist, tongue midline Neck exam: ABSENT: carotid bruit, JVD, lymphadenopathy, thyromegaly Respiratory exam: PRESENT: wheezes - bilaterally. ABSENT: rales, rhonchi Cardiovascular exam: PRESENT: RRR. ABSENT: diastolic murmur, rubs, systolic murmur Pulses: PRESENT: normal dorsalis pedis pul Vascular exam: PRESENT: normal capillary refill GI/Abdominal exam: PRESENT: distended, normal bowel sounds, soft. ABSENT: guarding, mass, organolmegaly, rebound, tenderness Rectal exam: PRESENT: deferred Extremities exam: PRESENT: full ROM. ABSENT: calf tenderness, clubbing, pedal edema Neurological exam: PRESENT: alert, awake, oriented to person, oriented to place , oriented to time, oriented to situation, CN II-XII grossly intact. ABSENT: motor sensory deficit Results Laboratory Results: 10/03/16 04:25 10/03/16 04:25 10/03/16 10/03/16 04:25 04:25 WBC 12.0 H RBC 3.01 L Hgb 9.1 L Hct 28.5 L MCV 95 MCH 30.3 MCHC 32.0 RDW 24.1 H Plt Count 170 Seg Neutrophils % Not Reportable Lymphocytes % Not Reportable Monocytes % Not Reportable Eosinophils % Not Reportable Basophils % Not Reportable Absolute Neutrophils Not Reportable Absolute Lymphocytes Not Reportable Absolute Monocytes Not Reportable Absolute Eosinophils Not Reportable Absolute Basophils Not Reportable Sodium 140.8 Potassium 4.7 Chloride 111 H Carbon Dioxide 20 L Anion Gap 10 BUN 56 H Creatinine 1.43 H Est GFR ( Amer) 44 L Est GFR (Non-Af Amer) 36 L Glucose 204 H Calcium 8.9 Magnesium 1.7 09/26/16 09/26/16 09/26/16 00:42 00:42 06:31 Creatine Kinase 93 CK-MB (CK-2) 1.89 Troponin I 0.047 0.051 Impressions: Renal Ultrasound 09/25/16 00:00 IMPRESSION: No evidence for hydronephrosis. Ascites. Abdomen Ultrasound 09/26/16 00:00 IMPRESSION: COARSENED LIVER ECHOTEXTURE WITH NODULAR CONTOUR SUGGESTIVE OF CIRRHOSIS. MILD ASCITES. NO SONOGRAPHIC EVIDENCE OF CHOLECYSTITIS. Chest X-Ray 09/30/16 19:06 IMPRESSION: Increased bilateral airspace disease -effusion at both lung bases. Paracentesis Ultrasound 10/01/16 08:00 IMPRESSION: Successful ultrasound-guided diagnostic and therapeutic paracentesis KUB X-Ray 10/03/16 12:00 IMPRESSION: Mild gastric distention. Assessment & Plan - Diagnosis (1) Acute kidney injury superimposed on chronic kidney disease Is this a current diagnosis for this admission?: Yes (2) Anasarca Is this a current diagnosis for this admission?: Yes (3) Anemia of chronic disease Is this a current diagnosis for this admission?: Yes (4) Cirrhosis Qualifiers: Hepatic cirrhosis type: unspecified hepatic cirrhosis Ascites presence : with ascites Qualified Code(s): K74.60 - Unspecified cirrhosis of liver Is this a current diagnosis for this admission?: Yes (5) UTI (urinary tract infection) Qualifiers: Urinary tract infection type: site unspecified Hematuria presence: with hematuria Qualified Code(s): N39.0 - Urinary tract infection, site not specified Is this a current diagnosis for this admission?: Yes (6) Vancomycin resistant Enterococcus Is this a current diagnosis for this admission?: Yes (7) Fluid overload Is this a current diagnosis for this admission?: YesPlan: increase lasix IV ; continuse nebs fluid overload secondary to severe hypoalbuminemia continue aldactone - monitor K closely (8) Gastric distention Is this a current diagnosis for this admission?: YesPlan: secondary to gastroparesis NGT will be inserted Reglan IV (9) Diabetes Qualifiers: Diabetes mellitus type: type 2 Diabetes mellitus complication status: with unspecified complications Diabetes mellitus termite treater helper insulin use: without care home use Qualified Code(s): E11.8 - Type 2 diabetes mellitus with unspecified complications Is this a current diagnosis for this admission?: YesPlan: with autonomic dysfunction - gastroparesis - Time Time Spent with patient: 25-34 minutes
[2016-10-03] MEDS ORDERED: GABAPENTIN 300 MG CAPSULE NG SCH (18:00)
[2016-10-03] MEDS ORDERED: LACTULOSE SYRUP 20 GM/30 ML UDCUP NG SCH (18:00)
[2016-10-03] MEDS ORDERED: SENNOSIDES/DOCUSATE 8.6-50 MG 1 EACH TABLET NG SCH (18:00)
[2016-10-03] MEDS ORDERED: LACTOBACILLUS ACIDOPHILUS 250 MG TAB NG SCH (18:00)
[2016-10-03] MEDS ORDERED: LINEZOLID 600 MG TABLET NG SCH (22:00)
[2016-10-03] MEDS ORDERED: FUROSEMIDE INJ/PF 20 MG/2 ML SDV IV SCH (22:00)
[2016-10-03] MEDS: INSULIN GLARGINE,HUM.REC.ANLOG 300 UNIT/3 ML INSULN.PEN SUBCUT SCH (22:58)
[2016-10-03] MEDS: FUROSEMIDE INJ/PF 40 MG/4 ML SDV IV SCH (23:00)
[2016-10-04] MEDS: ONDANSETRON HCL INJ/PF 4 MG/2 ML SDV IV PRN ×3 (01:44→19:19)
[2016-10-04] MEDS ORDERED: MAGNESIUM OXIDE 400 MG TABLET NG SCH (10:00)
[2016-10-04] MEDS ORDERED: POLYETHYLENE GLYCOL 3350 POWDER 17 GM/1 PACKET NG SCH (10:00)
[2016-10-04] MEDS ORDERED: LEVOTHYROXINE SODIUM 0.075 MG TABLET NG SCH (10:00)
[2016-10-04] MEDS ORDERED: SPIRONOLACTONE 25 MG TABLET NG SCH (10:00)
[2016-10-04] MEDS ORDERED: LORATADINE 10 MG TABLET NG SCH (10:00)
[2016-10-04] MEDS ORDERED: ASPIRIN 81 MG TABLET, CHEWABLE NG SCH (10:00)
[2016-10-04] MEDS ORDERED: INSULIN REG, HUMAN 100 UNIT/ML 3 ML VIAL (PYX) SUBCUT PRN (10:18)
[2016-10-04] MEDS ORDERED: NORMAL SALINE 1000 ML 1,000 ML IV PRN (10:18)
[2016-10-04 10:56] LABS: ABSOLUTE BASOPHILS # (AUTO) 0.1 10^3/uL (0.0-0.2); ABSOLUTE EOSINOPHILS # (AUTO) 0.1 10^3/uL (0.0-0.6); ABSOLUTE LYMPHOCYTES (AUTO) 0.9 10^3/uL (0.5-4.7); ABSOLUTE MONOCYTES (AUTO) 0.3 10^3/uL (0.1-1.4); ABSOLUTE NEUT (AUTO) 9.1 10^3/uL (1.7-8.2); BASOPHILS % (AUTO) 0.9 % (0-2); EOSINOPHILS % (AUTO) 0.5 % (0-6); HEMATOCRIT 26.9 % (36.0-47.0); HEMOGLOBIN 8.6 g/dL (12.0-15.5); HGB HCT DIFFERENCE -1.1; LYMPHOCYTES % (AUTO) 8.4 % (13-45); MEAN CORPUSCULAR HEMOGLOBIN 30.1 pg (27.0-33.4); MEAN CORPUSCULAR HGB CONC 32.1 g/dL (32.0-36.0); MEAN CORPUSCULAR VOLUME 94 fl (80-97); MONOCYTES % (AUTO) 3.1 % (3-13); RED BLOOD COUNT 2.87 10^6/uL (3.72-5.28); RED CELL DISTRIBUTION WIDTH 24.2 % (11.5-14.0); SEGMENTED NEUTROPHILS % (AUTO) 87.1 % (42-78); WHITE BLOOD COUNT 10.4 10^3/uL (4.0-10.5)
[2016-10-04 11:17] LABS: ANION GAP 10 (5-19); BLOOD UREA NITROGEN 70 mg/dL (7-20); CALCIUM 9.1 mg/dL (8.4-10.2); CARBON DIOXIDE 27 mmol/L (22-30); CHLORIDE 108 mmol/L (98-107); CREATININE RESULT 1.59 mg/dL (0.52-1.25); GLUCOSE 261 mg/dL (75-110); MAGNESIUM 1.9 mg/dL (1.6-2.3); POTASSIUM 4.8 mmol/L (3.6-5.0)
[2016-10-04 11:19] LABS: ANISOCYTOSIS 2+; OVALOCYTES SLIGHT; POIKILOCYTOSIS 2+; POLYCHROMASIA 1+; TOXIC GRANULATION SLIGHT
[2016-10-04 11:20] LABS: SCHISTOCYTES SLIGHT; TEAR DROP CELLS 1+
[2016-10-04] MEDS: FUROSEMIDE INJ/PF 40 MG/4 ML SDV IV SCH (11:27)
[2016-10-04] MEDS: INSULIN GLARGINE,HUM.REC.ANLOG 300 UNIT/3 ML INSULN.PEN SUBCUT SCH (12:26)
[2016-10-04] MEDS ORDERED: PANTOPRAZOLE SODIUM 80 MG in NORMAL SALINE 100 ML IV ONE (12:30)
--- NOTE | 2016-10-04 12:56 | PDOC PROGRESS REPORT ---
Subjective Progress Note for:: 10/04/16 Subjective:: Patient has been quite ill since yesterday; she felt extremely nauseous, a KUB showed a fairly distended stomach NG tube was inserted The NG tube started draining coffee-ground material in the evening Patient is to nauseous on and off with very mild epigastric discomfort She remains hemodynamically stable but looks ill Physical Exam Vital Signs: Temp Pulse Resp BP Pulse Ox 98.2 F 109 H 20 156/53 H 97 10/04/16 03:18 10/04/16 07:00 10/04/16 03:18 10/04/16 03:18 10/04/16 03:18 Intake & Output 10/03/16 10/04/16 10/05/16 00:59 00:59 00:59 Intake Total 1544 552 19 Output Total 450 1300 550 Balance 1094 -748 -531 Weight 124.2 kg 124.6 kg 123.8 kg General appearance: PRESENT: mild distress Head exam: PRESENT: atraumatic, normocephalic Eye exam: PRESENT: conjunctiva pale, EOMI, PERRLA. ABSENT: scleral icterus Neck exam: ABSENT: carotid bruit, JVD, lymphadenopathy, thyromegaly Respiratory exam: PRESENT: clear to auscultation karoline. ABSENT: rales, rhonchi, wheezes Cardiovascular exam: PRESENT: tachycardia. ABSENT: diastolic murmur, irregular rhythm, systolic murmur Pulses: PRESENT: normal dorsalis pedis pul Vascular exam: PRESENT: normal capillary refill GI/Abdominal exam: PRESENT: ascites, tenderness - epigastrium Rectal exam: PRESENT: deferred Extremities exam: PRESENT: full ROM. ABSENT: calf tenderness, clubbing, pedal edema Musculoskeletal exam: PRESENT: full ROM Neurological exam: PRESENT: awake, oriented to person, oriented to place, oriented to time, oriented to situation, CN II-XII grossly intact Results Laboratory Results: 10/04/16 10:45 10/04/16 10:45 10/04/16 10/04/16 10:45 10:45 WBC 10.4 RBC 2.87 L Hgb 8.6 L Hct 26.9 L MCV 94 MCH 30.1 MCHC 32.1 RDW 24.2 H Plt Count 152 Seg Neutrophils % 87.1 H Lymphocytes % 8.4 L Monocytes % 3.1 Eosinophils % 0.5 Basophils % 0.9 Absolute Neutrophils 9.1 H Absolute Lymphocytes 0.9 Absolute Monocytes 0.3 Absolute Eosinophils 0.1 Absolute Basophils 0.1 Sodium 145.0 Potassium 4.8 Chloride 108 H Carbon Dioxide 27 Anion Gap 10 BUN 70 H Creatinine 1.59 H Est GFR ( Amer) 39 L Est GFR (Non-Af Amer) 32 L Glucose 261 H Calcium 9.1 Magnesium 1.9 09/26/16 09/26/16 09/26/16 00:42 00:42 06:31 Creatine Kinase 93 CK-MB (CK-2) 1.89 Troponin I 0.047 0.051 Impressions: Renal Ultrasound 09/25/16 00:00 IMPRESSION: No evidence for hydronephrosis. Ascites. Abdomen Ultrasound 09/26/16 00:00 IMPRESSION: COARSENED LIVER ECHOTEXTURE WITH NODULAR CONTOUR SUGGESTIVE OF CIRRHOSIS. MILD ASCITES. NO SONOGRAPHIC EVIDENCE OF CHOLECYSTITIS. Chest X-Ray 09/30/16 19:06 IMPRESSION: Increased bilateral airspace disease -effusion at both lung bases. Paracentesis Ultrasound 10/01/16 08:00 IMPRESSION: Successful ultrasound-guided diagnostic and therapeutic paracentesis KUB X-Ray 10/03/16 13:18 IMPRESSION: No NG tube is demonstrated on the film submitted. Assessment & Plan - Diagnosis (1) Acute kidney injury superimposed on chronic kidney disease Is this a current diagnosis for this admission?: YesPlan: GFR improved somewhat to 32 creatinine was 2.6 on admission, is now 1.5 renal failure improved with IV fluids to follow up closely as patient has GI bleed hold lasix and aldactone (2) Anasarca Is this a current diagnosis for this admission?: Yes (3) Anemia of chronic disease Is this a current diagnosis for this admission?: YesPlan: chronic disease and GI bleed follow H/H closely transfuse if HTC<24 (4) Cirrhosis Qualifiers: Hepatic cirrhosis type: unspecified hepatic cirrhosis Ascites presence : with ascites Qualified Code(s): K74.60 - Unspecified cirrhosis of liver Is this a current diagnosis for this admission?: YesPlan: likely secondary to fatty liver Child Courtney Classification class B (5) UTI (urinary tract infection) Qualifiers: Urinary tract infection type: site unspecified Hematuria presence: with hematuria Qualified Code(s): N39.0 - Urinary tract infection, site not specified Is this a current diagnosis for this admission?: YesPlan: resolved (6) Vancomycin resistant Enterococcus Is this a current diagnosis for this admission?: YesPlan: resolved / treated for 7 days repeat urine culture (7) Fluid overload Is this a current diagnosis for this admission?: YesPlan: chronic secondary to third spacing (8) Gastric distention Is this a current diagnosis for this admission?: YesPlan: likely secondary to ileus / gatroparesis continue NG succion (9) Diabetes Qualifiers: Diabetes mellitus type: type 2 Diabetes mellitus complication status: with unspecified complications Diabetes mellitus usp insulin use: without usp use Qualified Code(s): E11.8 - Type 2 diabetes mellitus with unspecified complications; Z79.4 - MCC (current) use of insulin Is this a current diagnosis for this admission?: Yes (10) UGI bleed Is this a current diagnosis for this admission?: YesPlan: likely secondary to gastritis / PUD Continue protonix IV for endoscopy in am
[2016-10-04] MEDS ORDERED: NORMAL SALINE 100 ML with PANTOPRAZOLE SODIUM 80 MG IV PRN ×2 (13:00)
[2016-10-04] MEDS ORDERED: NORMAL SALINE 250 ML IV PRN ×2 (13:22)
[2016-10-04] MEDS ORDERED: NORMAL SALINE 500 ML with OCTREOTIDE ACETATE 500 MCG IV PRN ×2 (13:23)
--- NOTE | 2016-10-04 13:51 | PDOC TRANSFER SUMMARY ---
General Admission Date/PCP: 09/25/16 21:45 CATHERINE ARNOLD MD Admission Date: 09/25/16 Transfer Date: 10/04/16 Accepting Facility: [facility] Resuscitation Status: Full Code - Transfer Diagnosis (1) Acute kidney injury superimposed on chronic kidney disease Current Visit: Yes (2) Anasarca Current Visit: Yes (3) Anemia of chronic disease Current Visit: Yes (4) Cirrhosis Current Visit: Yes (5) UTI (urinary tract infection) Current Visit: Yes (6) Vancomycin resistant Enterococcus Current Visit: Yes (7) Fluid overload Current Visit: Yes (8) Gastric distention Current Visit: Yes (9) Diabetes Current Visit: Yes (10) UGI bleed Current Visit: Yes - Transfer Medications Home Medications: Allopurinol [Zyloprim 300 mg Tablet] 300 mg PO DAILY 09/25/16 Aspirin 81 mg PO DAILY 09/25/16 Colchicine [Colchicine 0.6 mg Tablet] 0.6 mg PO BID 09/25/16 Diclofenac Sodium [Voltaren] 100 gm TP DAILY PRN 09/25/16 Fexofenadine HCl [Cynthia] 180 mg PO DAILY 09/25/16 Furosemide [Lasix 40 mg Tablet] 40 mg PO QAM 09/25/16 Insulin NPL/Insulin Lispro [Humalog Mix 50-50 Vial] 60 unit SQ TID 09/25/16 Levothyroxine Sodium [Synthroid 0.075 mg Tablet] 0.075 mg PO DAILY 09/25/16 Lisinopril 5 mg PO DAILY 09/25/16 Velva-3 Acid Ethyl Esters [Lovaza 1 gm Capsule] 1 gm PO DAILY 09/25/16 Pravastatin Sodium [Pravachol] 40 mg PO DAILY 09/25/16 Ranitidine HCl [Zantac 150 mg Tablet] 150 mg PO DAILY 09/25/16 Saxagliptin HCl/Metformin HCl [Kombiglyze Xr 2.5-1,000 mg Tab] 2 each PO DAILY 09/25/16 Triamterene/Hydrochlorothiazid [Triamterene-Hctz 75-50 mg Tab] 1 tab PO DAILY Transfer Medications: Current Medications Acetaminophen (Tylenol 325 Mg Tablet) 650 mg NG Q8HP PRN Stop: 11/02/16 13:47 Albuterol/Ipratropium (Duoneb 3 Ml Ampul) 3 ml NEB RTQ6HP PRN Stop: 10/30/16 19:05 Last Admin: 10/03/16 08:57 Dose: 3 ml Bisacodyl (Dulcolax 10 Mg Supp.Rect) 10 mg MI HSP PRN Stop: 11/02/16 08:15 Dextrose (Dextrose Inj 50% Syringe (25 Gm/50 Ml)) 12.5 gm IV PRN PRN; Protocol PRN Reason: FOR BG 50-69 IN ALERT PATIENT Stop: 10/25/16 22:25 Dextrose (Dextrose Inj 50% Syringe (25 Gm/50 Ml)) 25 gm IV PRN PRN PRN Reason: Protocol Stop: 10/25/16 22:25 Furosemide (Lasix Inj/Pf 40 Mg/4 Ml Sdv) 40 mg IV Q12 MARIELENA Stop: 11/02/16 21:59 Last Admin: 10/04/16 11:27 Dose: Not Given Gabapentin (Neurontin 300 Mg Capsule) 300 mg NG Q12A MARIELENA Stop: 11/02/16 17:59 Last Admin: 10/04/16 11:27 Dose: Not Given Glucagon (Glucagen Inj 1 Mg Vial) 1 mg IM PRN PRN; Protocol PRN Reason: Evaluate for BG < 70 Stop: 10/25/16 22:25 Glucose (Glutose 40% Gel 15 Gm Tube) 15 gm NG PRN PRN; Protocol PRN Reason: FOR BG 50-69 IN ALERT PATIENT Stop: 11/02/16 13:48 Glucose (Glutose 40% Gel 15 Gm Tube) 30 gm NG PRN PRN; Protocol PRN Reason: FOR BG < 50 IN ALERT PATIENT Stop: 11/02/16 13:48 Sodium Chloride (Nacl 0.9% 1000 Ml Iv Soln) 1,000 mls @ 75 mls/hr IV CONTINUOUS PRN PRN Reason: THIS MED IS NOT "PRN" Stop: 11/03/16 10:17 Pantoprazole Sodium 80 mg/ (Sodium Chloride) 100 mls @ 10 mls/hr IV CONTINUOUS PRN PRN Reason: THIS MED IS NOT "PRN" Stop: 10/07/16 12:59 Last Admin: 10/04/16 13:12 Dose: 80 mg Octreotide Acetate 500 mcg/ (Sodium Chloride) 502.5 mls @ 25.12 mls/hr IV CONTINUOUS PRN; 25 MCG/HR PRN Reason: THIS MED IS NOT "PRN" Stop: 11/03/16 13:22 Sodium Chloride (Nacl 0.9% 250 Ml Iv Soln) 250 mls @ 30 mls/hr IV .DURING TRANSFUSION PRN PRN Reason: THIS MED IS NOT "PRN" Stop: 10/05/16 13:21 Sodium Chloride (Nacl 0.9% 250 Ml Iv Soln) 250 mls @ 0 mls/hr IV CONTINUOUS PRN ; As Directed PRN Reason: AFTER EACH UNIT Stop: 10/05/16 13:21 Insulin Glargine (Lantus Insulin Inj 300 Unit/3 Ml Pen) 10 unit SUBCUT Q12 [facility] Stop: 11/02/16 21:59 Last Admin: 10/04/16 12:26 Dose: 10 unit Insulin Human Regular (Humulin R (Pyxis) Insulin 100 Unit/Ml 3ml) 0 - 12 unit SUBCUT Q6HP PRN PRN Reason: Protocol Stop: 11/03/16 10:17 Last Admin: 10/04/16 12:26 Dose: 6 unit Lactobacillus Acidophilus (Bacid 250 Mg Tablet) 500 mg NG BID [facility] Stop: 11/02/16 17:59 Last Admin: 10/04/16 11:27 Dose: Not Given Lactulose (Cephulac Syrup 20 Gm/30 Ml Udcup) 20 gm NG BID MARIELENA Stop: 11/02/16 17:59 Last Admin: 10/04/16 11:27 Dose: Not Given Levothyroxine Sodium (Synthroid 0.075 Mg Tablet) 0.075 mg NG DAILY [facility] Stop: 11/03/16 09:59 Last Admin: 10/04/16 11:27 Dose: Not Given Levothyroxine Sodium (Synthroid Inj/Pf 0.1 Mg Sdv) 0.0375 mg IV DAILY [facility] Stop: 11/04/16 09:59 Loratadine (Claritin 10 Mg Tablet) 10 mg NG DAILY [facility] Stop: 11/03/16 09:59 Last Admin: 10/04/16 11:27 Dose: Not Given Magnesium Oxide (Mag-Ox 400 Mg Tablet) 400 mg NG DAILY [facility] Stop: 11/03/16 09:59 Last Admin: 10/04/16 11:27 Dose: Not Given Ondansetron HCl (Zofran Inj/Pf 4 Mg/2 Ml Sdv) 4 mg IV Q6HP PRN PRN Reason: FOR NAUSEA/VOMITING Stop: 11/02/16 08:17 Last Admin: 10/04/16 12:27 Dose: 4 mg Oxycodone HCl (Oxy-Ir 5 Mg Tablet) 5 mg NG Q4HP PRN Stop: 10/10/16 13:51 Pharmacy Profile Note (Medication Communication Order) 1 each MC .DOSE ADJUST [facility] Stop: 10/25/16 22:29 Pharmacy Profile Note (Medication Communication Order) 1 each MC .NOTICE NR Stop: 11/02/16 13:29 Polyethylene Glycol (Miralax Powder 17 Gm/Packet) 17 gm NG DAILY MARIELENA Stop: 11/03/16 09:59 Last Admin: 10/04/16 11:27 Dose: Not Given Senna/Docusate Sodium (Senna Plus Tablet) 1 each NG BID MARIELENA Stop: 11/02/16 17:59 Last Admin: 10/04/16 11:27 Dose: Not Given Sodium Chloride (Saline Flush 2.5 Ml Monoject Prefil Syrin) 2.5 ml IV Q8 MARIELENA Stop: 10/26/16 05:59 Last Admin: 10/04/16 13:12 Dose: Not Given Spironolactone (Aldactone 25 Mg Tablet) 50 mg NG DAILY MARIELENA Stop: 11/03/16 09:59 Last Admin: 10/04/16 11:27 Dose: Not Given - Allergies Allergies/Adverse Reactions: amoxicillin Allergy (Verified 09/25/16 22:22) ampicillin Allergy (Verified 09/25/16 22:22) cefepime Allergy (Verified 09/27/16 13:40) Sulfa (Sulfonamide Antibiotics) Allergy (Verified 09/25/16 22:21) rash Hospital Course Hospital Course: Patient is a 18-year-old female with a known history of depression, diabetes mellitus type II, asthma, hypertension Who presented to the ED on 09/25/2016 with urinary tract infection, cellulitis lower extremities, acute on chronic renal failure and fluid overload Patient was subsequently admitted to an IMCU unit 1 infectious disease Patient was diagnosed of VRE UTI she was treated and weighs Zyvox 600 mg by mouth twice a day and finished a course of 7 days Repeat urine culture is pending 2 cellulitis lower extremities grew staph Patient was continued on Zyvox The cellulitis cleared 3 fluid overload Patient was evaluated by cardiology as she had pulmonary congestion on the chest x-ray Patient was diagnosed of cirrhosis of the liver etiology unclear likely to be secondary to fatty liver She had anasarca secondary to severe hypoalbuminemia and third spacing an echocardiogram performed in July 2016 was unremarkable Patient was started on small doses of Lasix and Aldactone paracenteses was performed twice Initial workup for cirrhosis of the liver included an ultrasound of the abdomen which showed coarsened echotexture of the liver Suggestive of cirrhosis the bile duct stone wearing and gallbladder were normal Hepatitis profile was negative 3 upper GI bleed Since yesterday patient started having severe nausea An NG tube was placed on low intermittent suction Patient has had Large amount of coffee-ground material suctioned; H&H and vital signs have remained stable although patient is a now somewhat tachycardic with a heart rate of 106 Protonix IV was initiated as well as protonix drip We added octreotide drip prior to transfer 2 units of packed red cells were ordered stat Last H&H is 8 and 26, platelet count 150, INR 1.1 Patient has not had endoscopy recently No GI specialist is available in our hospital today; patient needs to be transferred emergently to a higher level of care for endoscopy 4- acute on chronic renal failure Patient has CK disease stage 3-4 She was admitted with a creatinine of 2.5; it is 1.5 at transfer. Physical Exam Vital Signs: Temp Pulse Resp BP Pulse Ox 97.7 F 106 H 24 H 162/56 H 95 10/04/16 11:25 10/04/16 11:25 10/04/16 11:25 10/04/16 11:25 10/04/16 11:25 Intake & Output 10/03/16 10/04/16 10/05/16 00:59 00:59 00:59 Intake Total 1544 552 19 Output Total 450 1300 650 Balance 1094 -748 -631 Weight 124.2 kg 124.6 kg 123.8 kg General appearance: PRESENT: mild distress, obese Head exam: PRESENT: atraumatic, normocephalic Eye exam: PRESENT: conjunctiva pale, EOMI, PERRLA Mouth exam: PRESENT: moist, tongue midline Respiratory exam: PRESENT: clear to auscultation karoline. ABSENT: rales, rhonchi, wheezes Cardiovascular exam: PRESENT: RRR. ABSENT: diastolic murmur, rubs, systolic murmur GI/Abdominal exam: PRESENT: ascites, other - Tenderness epigastrium no guarding no rebound Extremities exam: PRESENT: full ROM. ABSENT: calf tenderness, clubbing, pedal edema Neurological exam: PRESENT: alert, awake, oriented to time, oriented to situation, CN II-XII grossly intact Psychiatric exam: PRESENT: depressed Skin exam: PRESENT: dry, intact, warm. ABSENT: cyanosis, rash Results Laboratory Results: 10/04/16 10:45 10/04/16 10:45 10/04/16 10/04/16 10:45 10:45 WBC 10.4 RBC 2.87 L Hgb 8.6 L Hct 26.9 L MCV 94 MCH 30.1 MCHC 32.1 RDW 24.2 H Plt Count 152 Seg Neutrophils % 87.1 H Lymphocytes % 8.4 L Monocytes % 3.1 Eosinophils % 0.5 Basophils % 0.9 Absolute Neutrophils 9.1 H Absolute Lymphocytes 0.9 Absolute Monocytes 0.3 Absolute Eosinophils 0.1 Absolute Basophils 0.1 Sodium 145.0 Potassium 4.8 Chloride 108 H Carbon Dioxide 27 Anion Gap 10 BUN 70 H Creatinine 1.59 H Est GFR ( Amer) 39 L Est GFR (Non-Af Amer) 32 L Glucose 261 H Calcium 9.1 Magnesium 1.9 09/26/16 09/26/16 09/26/16 00:42 00:42 06:31 Creatine Kinase 93 CK-MB (CK-2) 1.89 Troponin I 0.047 0.051 09/26/16 02:35 MRSA Surveillance Culture - Final Nasophary (Mrsa Only) MRSA RECOVERED 09/25/16 19:40 Blood Culture - Final Blood NO GROWTH IN 5 DAYS 09/25/16 15:38 Urine Culture - Final Catheterized Urine E.faecium Vre 09/25/16 15:38 Blood Culture - Final Blood NO GROWTH IN 5 DAYS 09/25/16 13:40 Gram Stain - Final Foot - Right Wound Culture - Final Mrsa (Meth Resis Staph Aureus) Skin Mansi 09/25/16 13:40 Gram Stain - Final Foot - Left Wound Culture - Final Staphylococcus Aureus Enterococcus Faecalis(Group D) Skin Mansi 05/04/11 12:05 Urine Culture - Final Clean Catch Midstream Mixed Urogenital Mansi 10/01/16 11:00 Gram Stain - Preliminary Ascities Fluid Body Fluid Culture - Preliminary NO GROWTH 3 DAYS 09/26/16 10/01/16 18:38 06:13 PT 15.8 H 15.3 Impressions: Renal Ultrasound 09/25/16 00:00 IMPRESSION: No evidence for hydronephrosis. Ascites. Abdomen Ultrasound 09/26/16 00:00 IMPRESSION: COARSENED LIVER ECHOTEXTURE WITH NODULAR CONTOUR SUGGESTIVE OF CIRRHOSIS. MILD ASCITES. NO SONOGRAPHIC EVIDENCE OF CHOLECYSTITIS. Chest X-Ray 09/30/16 19:06 IMPRESSION: Increased bilateral airspace disease -effusion at both lung bases. Paracentesis Ultrasound 10/01/16 08:00 IMPRESSION: Successful ultrasound-guided diagnostic and therapeutic paracentesis KUB X-Ray 10/03/16 13:18 IMPRESSION: No NG tube is demonstrated on the film submitted. Plan Discharge Plan: Transfer to [facility] ICU Time Spent: Greater than 30 Minutes
[2016-10-04 15:59] LABS: HEMATOCRIT 28.4 % (36.0-47.0); HEMOGLOBIN 9.4 g/dL (12.0-15.5); HGB HCT DIFFERENCE -0.2; MEAN CORPUSCULAR HEMOGLOBIN 30.6 pg (27.0-33.4); MEAN CORPUSCULAR HGB CONC 33.2 g/dL (32.0-36.0); MEAN CORPUSCULAR VOLUME 92 fl (80-97); RED BLOOD COUNT 3.08 10^6/uL (3.72-5.28); RED CELL DISTRIBUTION WIDTH 24.4 % (11.5-14.0); WHITE BLOOD COUNT 15.1 10^3/uL (4.0-10.5)
[2016-10-04 19:25] VITALS: BP 160/56
[2016-10-05] MEDS ORDERED: LEVOTHYROXINE SODIUM INJ/PF 0.1 MG SDV IV SCH (10:00)
== END 2016-10-04 19:45 | disposition short-term general hospital (02) | DRG 683 ==
LOC: ER 12:59 → EH 21:45 → UNDOADMIN 21:56 → EH 21:56 → 3N 09-26 02:29
PROVIDERS: ADMIT Family Medicine; ATTEND Family Medicine
PROC: 0W9G3ZZ Drainage of Peritoneal Cavity, Percutaneous Approach (ICD-10-PCS; principal; 2016-09-27)
PROC: 0W9G3ZX Drainage of Peritoneal Cavity, Percutaneous Approach, Diagnostic (ICD-10-PCS; 2016-10-01)
PROC: 30233N1 Transfusion of Nonautologous Red Blood Cells into Peripheral Vein, Percutaneous Approach (ICD-10-PCS; 2016-10-04)
DX: N17.9 Acute kidney failure, unspecified (principal); N39.0 Urinary tract infection, site not specified; L03.115 Cellulitis of right lower limb; Z68.41 Body mass index [BMI] 40.0-44.9, adult; J98.11 Atelectasis; R18.8 Other ascites; E46 Unspecified protein-calorie malnutrition; K92.2 Gastrointestinal hemorrhage, unspecified; K75.81 Nonalcoholic steatohepatitis (NASH); N18.3 Chronic kidney disease, stage 3 (moderate); D63.8 Anemia in other chronic diseases classified elsewhere; E87.5 Hyperkalemia; I12.9 Hypertensive chronic kidney disease with stage 1 through stage 4 chronic kidney disease, or unspecified chronic kidney disease; E11.22 Type 2 diabetes mellitus with diabetic chronic kidney disease; E78.5 Hyperlipidemia, unspecified; J44.9 Chronic obstructive pulmonary disease, unspecified; E03.9 Hypothyroidism, unspecified; D69.6 Thrombocytopenia, unspecified; L98.499 Non-pressure chronic ulcer of skin of other sites with unspecified severity; L97.529 Non-pressure chronic ulcer of other part of left foot with unspecified severity; L97.519 Non-pressure chronic ulcer of other part of right foot with unspecified severity; L89.629 Pressure ulcer of left heel, unspecified stage; B37.2 Candidiasis of skin and nail; B95.2 Enterococcus as the cause of diseases classified elsewhere; Z16.21 Resistance to vancomycin; M25.561 Pain in right knee; R19.7 Diarrhea, unspecified; E66.01 Morbid (severe) obesity due to excess calories; Z88.1 Allergy status to other antibiotic agents; Z88.2 Allergy status to sulfonamides; Z88.5 Allergy status to narcotic agent; Z79.82 Long term (current) use of aspirin; Z79.4 Long term (current) use of insulin; Z99.3 Dependence on wheelchair
CPT/HCPCS: 36415; 36430; 49083; 71010; 71020; 74000; 76705; 76770; 80048; 80053; 80061; 80074; 80076; 81001; 82140; 82550; 82553; 82607; 82728; 82746; 82784; 82962; 83540; 83550; 83735; 83880; 84132; 84443; 84484; 85025; 85027; 85045; 85610; 85730; 86850; 86900; 86901; 86920; 87040; 87070; 87075; 87077; 87086; 87088; 87186; 87205; 89050; 93005; 93010; 93976; 94799; G8978-GP; G8979-GP; J0692; J0696; J1644; J1815; J1940; J1956; J2354; J2405; J3370; J3475; J3490; J7030; J7040; J7060; J7620; P9016; P9047; S0164

== ENCOUNTER 2016-11-05 02:26 | Emergency (ER) | payer MEDICARE, OTHER ==
[2016-11-05] MEDS ORDERED: FUROSEMIDE INJ/PF 40 MG/4 ML SDV IV ONE ×2 (03:34→03:35)
--- NOTE | 2016-11-05 04:04 | ER Document Report ---
ED General - General Chief Complaint: Leg Swelling Stated Complaint: BILATERAL LEG SWELLING Notes: Patient is a 71-year-old female presents with complaint of bilateral leg swelling. Patient says that the skilled nursing was not been given her Lasix for the last several days. No leg swellings can get worse. They sent her here because of the worsening leg swelling. She does have a history of cellulitis in her lower extremities. She was negative for this in the past. She denies any fevers. No vomiting. No chest pain. No difficulty breathing. No other complaints at this time. TRAVEL OUTSIDE OF THE [place] IN LAST 30 DAYS: No - Related Data Allergies/Adverse Reactions: amoxicillin Allergy (Verified 09/25/16 22:22) ampicillin Allergy (Verified 09/25/16 22:22) cefepime Allergy (Verified 09/27/16 13:40) Sulfa (Sulfonamide Antibiotics) Allergy (Verified 09/25/16 22:21) rash Past Medical History - Social History Smoking Status: Never Smoker Frequency of alcohol use: None Drug Abuse: None Family History: None - Past Medical History Cardiac Medical History: Reports: Hx Congestive Heart Failure, Hx Hypercholesterolemia, Hx Hypertension Denies: Hx DVT, Hx Heart Attack, Hx Pulmonary Embolism Pulmonary Medical History: Reports: Hx Asthma, Hx COPD Neurological Medical History: Denies: Hx Seizures Endocrine Medical History: Reports: Hx Diabetes Mellitus Type 2, Hx Hypothyroidism. Denies: Hx Diabetes Mellitus Type 1, Hx Hyperthyroidism GI Medical History: Denies: Hx Cirrhosis, Hx Gastroesophageal Reflux Disease, Hx Hepatitis Musculoskeltal Medical History: Reports Hx Arthritis Psychiatric Medical History: Denies: Hx Depression Infectious Medical History: Denies: Hx C-Diff, Hx Hepatitis, Hx MRSA Past Surgical History: Reports: Hx Herniorrhaphy - Umbilical, Hx Orthopedic Surgery - "Removal" of right kneefusion? Review of Systems - Review of Systems Notes: My Normal Review Basic REVIEW OF SYSTEMS: CONSTITUTIONAL : Denies fever, chills, or sweats. Denies recent illness. EENT: Denies eye, ear, throat, or mouth pain or symptoms. Denies nasal or sinus congestion. CARDIOVASCULAR: Denies chest pain. RESPIRATORY: Denies cough, cold, or chest congestion. Denies shortness of breath, difficulty breathing, or wheezing. GASTROINTESTINAL: Denies abdominal pain. Denies nausea, vomiting, or diarrhea. Denies constipation. Last BM: MUSCULOSKELETAL: Leg edema SKIN: Denies rash or skin lesions. NEUROLOGICAL: Denies altered mental status or loss of consciousness. Denies headache. Denies weakness or paralysis or loss of use of either side. Denies problems with gait or speech. Denies sensory or motor loss. ALL OTHER SYSTEMS REVIEWED AND NEGATIVE. Physical Exam - Vital signs Vitals: Temp Pulse Resp BP Pulse Ox 98.7 F 55 L 18 190/50 H 98 11/05/16 02:51 11/05/16 02:51 11/05/16 02:51 11/05/16 02:51 11/05/16 02:51 - Notes Notes: General Appearance: Well nourished, alert, cooperative, no acute distress, no obvious discomfort. Vitals: reviewed, See vital signs table. Head: no swelling or tenderness to the head Eyes: PERRL, EOMI, Conjuctiva clear Mouth: No decreasd moisture Lungs: No wheezing, No rales, No rhonci, No accessory muscle use, good air exchange bilaterally. Heart: Normal rate, Regular rythm, No murmur, no rub Abdomen: Normal BS, soft, No rigidity, No abdominal tenderness, No guarding, no rebound, no abdominal masses, no organomegaly Extremities: strength 5/5 in all extremities, good pulses in all extremities, no swelling or tenderness in the extremities, 3+ edema in bilateral lower extremities. Skin: Faint redness over both lower extremities. Looks more consistent with mild erythema due to significant edema. I cannot completely rule out cellulitis with some of erythema on the right lower extremity. There is a wound on the right lower extremity which appears to be healing appropriate. There is another very superficial wound near the anterior right hip which appears to be healing well and has no surrounding erythema. Neuro: speech clear, oriented x 3, normal affect, responds appropriately to questions. Course - Vital Signs Vital signs: Temp Pulse Resp BP Pulse Ox 98.7 F 55 L 18 190/50 H 98 11/05/16 02:51 11/05/16 02:51 11/05/16 02:51 11/05/16 02:51 11/05/16 02:51 - Laboratory Result Diagrams: 11/05/16 04:16 11/05/16 04:16 Laboratory results interpreted by me: 11/05/16 11/05/16 04:16 04:16 WBC 10.7 H RBC 3.22 L Hgb 9.9 L Hct 30.2 L RDW 21.4 H Eosinophils % 9.4 H Absolute Eosinophils 1.0 H Chloride 108 H Carbon Dioxide 20 L BUN 56 H Creatinine 1.93 H Est GFR ( Amer) 31 L Est GFR (Non-Af Amer) 26 L Glucose 123 H - EKG Interpretation by Me Additional EKG results interpreted by me: 11/05/16 04:28 EKG is reviewed and interpreted by me. EKG shows sinus rhythm with rate of 96 bpm. Some PVCs with intermittent ventricular bigeminy. SD interval, QRS duration, QTC intervals are within normal range. Old EKG for comparison is from 10/03/2016. - Transfer of Care Notes: 11/05/16 05:28 Patient looks well. She'll be discharged home. I will place her back on her Lasix which will most likely help with her lower extremity edema. She does have some erythematous although worse in the right lower extremity comparison to left. Due to recent history of cellulitis I do think it's appropriate to place her on clindamycin patient encouraged return to ER immediately if she has spreading redness, increased swelling, difficulty breathing, or feels unwell. I wrote the discharge paperwork for the skilled nursing to recheck her chemistry panel in 2 days due to history of renal sufficiency and also to check to make sure that her potassium is staying normal. Dictation of this chart was performed using voice recognition software; therefore, there may be some unintended grammatical errors. Discharge - Discharge Clinical Impression: Cellulitis Qualifiers: Site of cellulitis: extremity Site of cellulitis of extremity: lower extremity Laterality: unspecified laterality Qualified Code(s): L03.119 - Cellulitis of unspecified part of limb Edema Qualifiers: Edema type: unspecified Qualified Code(s): R60.9 - Edema, unspecified Condition: Good Disposition: HOME, SELF-CARE Additional Instructions: Please restart taking the lasix. I have written a prescription for the Lasix and how to take it. Please have your kidney function and potassium rechecked in 2 days. Please return to the ER immediately if you have spreading redness in your leg, increased swelling, difficulty breathing, fevers, or feel unwell. Please have the physician at the skilled nursing reevaluate your leg within 2 days. Prescriptions: Clindamycin HCl 300 mg PO ASDIR #56 capsule Furosemide [Lasix] 40 mg PO BID #30 tablet
[2016-11-05 04:59] LABS: ABSOLUTE BASOPHILS # (AUTO) 0.1 10^3/uL (0.0-0.2); ABSOLUTE LYMPHOCYTES (AUTO) 3.6 10^3/uL (0.5-4.7); ABSOLUTE MONOCYTES (AUTO) 0.8 10^3/uL (0.1-1.4); ABSOLUTE NEUT (AUTO) 5.1 10^3/uL (1.7-8.2); BASOPHILS % (AUTO) 1.3 % (0-2); EOSINOPHILS % (AUTO) 9.4 % (0-6); HEMATOCRIT 30.2 % (36.0-47.0); HEMOGLOBIN 9.9 g/dL (12.0-15.5); HGB HCT DIFFERENCE -0.5; LYMPHOCYTES % (AUTO) 33.9 % (13-45); MEAN CORPUSCULAR HEMOGLOBIN 30.8 pg (27.0-33.4); MEAN CORPUSCULAR HGB CONC 32.8 g/dL (32.0-36.0); MEAN CORPUSCULAR VOLUME 94 fl (80-97); MONOCYTES % (AUTO) 7.1 % (3-13); RED BLOOD COUNT 3.22 10^6/uL (3.72-5.28); RED CELL DISTRIBUTION WIDTH 21.4 % (11.5-14.0); SEGMENTED NEUTROPHILS % (AUTO) 48.3 % (42-78); WHITE BLOOD COUNT 10.7 10^3/uL (4.0-10.5)
[2016-11-05 05:07] LABS: ANION GAP 9 (5-19); BLOOD UREA NITROGEN 56 mg/dL (7-20); CALCIUM 8.4 mg/dL (8.4-10.2); CARBON DIOXIDE 20 mmol/L (22-30); CHLORIDE 108 mmol/L (98-107); CREATININE RESULT 1.93 mg/dL (0.52-1.25); GLUCOSE 123 mg/dL (75-110); POTASSIUM 4.4 mmol/L (3.6-5.0); SODIUM 137.2 mmol/L (137-145)
[2016-11-05] MEDS ORDERED: CLINDAMYCIN HCL 150 MG CAPSULE PO ONE (05:20)
[2016-11-05 07:33] VITALS: BP 114/66
--- NOTE | 2016-11-05 08:28 | EKG REPORT ---
SEVERITY:- ABNORMAL ECG - SINUS RHYTHM VENTRICULAR BIGEMINY PROBABLE LEFT ATRIAL ABNORMALITY : Confirmed by: Evens Byers MD 05-Nov-2016 08:28:19
== END 2016-11-05 07:33 | disposition home or self-care (01) ==
LOC: ER 02:26
DX: L03.119 Cellulitis of unspecified part of limb (principal); M79.89 Other specified soft tissue disorders
CPT/HCPCS: 93005; 99285; 96374; 36415; 82962; 85025; 80048; 93010; A9270; J1940

== ENCOUNTER 2016-11-15 15:22 | Inpatient (IN) | payer MEDICARE, OTHER ==
--- NOTE | 2016-11-15 15:53 | ER Document Report ---
ED Medical Screen (RME) - General Stated Complaint: SWELLING/ABDOMIN,FEET AND LEGS Mode of Arrival: Wheelchair Information source: Relative Notes: Patient with swelling to abdomen and bilateral lower extremities. Patient reports difficulty breathing. Patient was [facility]. Patient without any cough, fever, or chest pain. hx: History kidney failure, liver failure. Diabetic I have greeted and performed a rapid initial assessment of this patient. A comprehensive ED assessment and evaluation of the patient, analysis of test results and completion of the medical decision making process will be conducted by additional ED providers. TRAVEL OUTSIDE OF THE [place] IN LAST 30 DAYS: No - Related Data Allergies/Adverse Reactions: amoxicillin Allergy (Verified 09/25/16 22:22) ampicillin Allergy (Verified 09/25/16 22:22) cefepime Allergy (Verified 09/27/16 13:40) morphine Allergy (Verified 11/15/16 15:50) Sulfa (Sulfonamide Antibiotics) Allergy (Verified 09/25/16 22:21) rash Past Medical History - Past Medical History Cardiac Medical History: Reports: Hx Congestive Heart Failure, Hx Hypercholesterolemia, Hx Hypertension Denies: Hx DVT, Hx Heart Attack, Hx Pulmonary Embolism Pulmonary Medical History: Reports: Hx Asthma, Hx COPD Neurological Medical History: Denies: Hx Seizures Endocrine Medical History: Reports: Hx Diabetes Mellitus Type 2, Hx Hypothyroidism. Denies: Hx Diabetes Mellitus Type 1, Hx Hyperthyroidism GI Medical History: Denies: Hx Cirrhosis, Hx Gastroesophageal Reflux Disease, Hx Hepatitis Musculoskeltal Medical History: Reports Hx Arthritis Psychiatric Medical History: Denies: Hx Depression Infectious Medical History: Denies: Hx C-Diff, Hx Hepatitis, Hx MRSA Past Surgical History: Reports: Hx Herniorrhaphy - Umbilical, Hx Orthopedic Surgery - "Removal" of right kneefusion? Physical Exam - Vital signs Vitals: Temp Pulse Resp BP Pulse Ox 97.4 F 103 H 16 110/37 L 100 11/15/16 15:27 11/15/16 15:11/15/16 15:11/15/16 15:11/15/16 15:27 - Extremities General lower extremity: Edema Course - Vital Signs Vital signs: Temp Pulse Resp BP Pulse Ox 97.4 F 103 H 16 110/37 L 100 11/15/16 15:27 11/15/16 15:27 11/15/16 15:27 11/15/16 15:27 11/15/16 15:27
[2016-11-15] MEDS ORDERED: FUROSEMIDE INJ/PF 40 MG/4 ML SDV IV ONE (17:19)
[2016-11-15] MEDS ORDERED: CLINDAMYCIN 900 MG/D5W RTU 50 ML IV ONE (17:20)
--- NOTE | 2016-11-15 17:23 | ER Document Report ---
ED General - General Chief Complaint: Edema Stated Complaint: SWELLING/ABDOMIN,FEET AND LEGS Mode of Arrival: Wheelchair Information source: Patient Notes: This is a 71-year-old female with multiple medical problems including CHF who was recently discharged from the long term to home and is cared for by her daughters. Today she presents with increasing lower extremity swelling as well as increasing abdominal girth and difficulty breathing. She states that in the past when her edema has gotten this bad, she has required paracentesis. She states this was last done about a month or 2 ago. He was seen in the ER 10 days ago at which time her Lasix was being held at the long term. At that time it was felt that she may have the beginnings of right lower extremity cellulitis since of her Lasix was resumed as well as a course of clindamycin, which she completed last week. She states that the redness on her leg has gotten worse and she now has a blister on her right anterior gauthier. TRAVEL OUTSIDE OF THE [place] IN LAST 30 DAYS: No - Related Data Allergies/Adverse Reactions: amoxicillin Allergy (Verified 09/25/16 22:22) ampicillin Allergy (Verified 09/25/16 22:22) cefepime Allergy (Verified 09/27/16 13:40) morphine Allergy (Verified 11/15/16 15:50) Sulfa (Sulfonamide Antibiotics) Allergy (Verified 09/25/16 22:21) rash Home Medications: Current Home Medications Furosemide [Lasix] 40 mg PO DAILY 11/15/16 [History] Hydroxyzine HCl [Atarax 25 mg Tablet] PO 11/15/16 [History] Insulin NPL/Insulin Lispro [Humalog Mix 50-50 100 unit/mL] 11/15/16 [History] Multivitamin [Multivitamins] 1 tab PO DAILY 11/15/16 [History] Saxagliptin HCl/Metformin HCl [Kombiglyze Xr 2.5-1,000 mg Tab] 2 tab PO DAILY [History] Triamterene/Hydrochlorothiazid [Maxzide 75 mg-50 mg Tablet] 1 each PO DAILY [History] Past Medical History - General Information source: Relative - Social History Smoking Status: Unknown if Ever Smoked Chew tobacco use (# tins/day): No Frequency of alcohol use: None Drug Abuse: None Family History: None Patient has suicidal ideation: No Patient has homicidal ideation: No - Past Medical History Cardiac Medical History: Reports: Hx Congestive Heart Failure, Hx Hypercholesterolemia, Hx Hypertension Denies: Hx DVT, Hx Heart Attack, Hx Pulmonary Embolism Pulmonary Medical History: Reports: Hx Asthma, Hx COPD Neurological Medical History: Denies: Hx Seizures Endocrine Medical History: Reports: Hx Diabetes Mellitus Type 2, Hx Hypothyroidism. Denies: Hx Diabetes Mellitus Type 1, Hx Hyperthyroidism Renal/ Medical History: Denies: Hx Peritoneal Dialysis GI Medical History: Denies: Hx Cirrhosis, Hx Gastroesophageal Reflux Disease, Hx Hepatitis Musculoskeltal Medical History: Reports Hx Arthritis Psychiatric Medical History: Denies: Hx Depression Infectious Medical History: Denies: Hx C-Diff, Hx Hepatitis, Hx MRSA Past Surgical History: Reports: Hx Herniorrhaphy - Umbilical, Hx Orthopedic Surgery - "Removal" of right kneefusion? Review of Systems - Review of Systems Constitutional: No symptoms reported. denies: Chills, Fever EENT: No symptoms reported Cardiovascular: No symptoms reported. denies: Chest pain, Palpitations Respiratory: Short of breath Gastrointestinal: Abdomen distended, Abdominal pain, Diarrhea. denies: Vomiting Genitourinary: No symptoms reported Musculoskeletal: No symptoms reported Skin: See HPI Neurological/Psychological: No symptoms reported. denies: Confusion, Hallucinations, Weakness Physical Exam - Vital signs Vitals: Temp Pulse Resp BP Pulse Ox 97.4 F 103 H 16 110/37 L 100 11/15/16 15:27 11/15/16 15:27 11/15/16 15:27 11/15/16 15:27 11/15/16 15:27 - Notes Notes: PHYSICAL EXAMINATION: GENERAL: Somewhat ill-appearing, well-nourished, obese and in no acute distress. HEAD: Atraumatic, normocephalic. EYES: Pupils equal round and reactive to light, extraocular movements intact, sclera anicteric, conjunctiva are normal. ENT: nares patent, oropharynx clear without exudates. Moist mucous membranes. NECK: Normal range of motion, supple without lymphadenopathy LUNGS: Decreased bibasilar breath sounds, no wheezes or rhonchi. HEART: Regular rate and rhythm without murmurs ABDOMEN: morbid obesity with protuberant abdomen with ascites. No peritonitis, no guarding/rebound EXTREMITIES: 3-4+ pitting edema symmetric bilateral lower extremities, Warm. Dry. Patient has a 2 x 6 cm area of denuded skin in the right lower abdomen with a dry dressing over it. She has cheesy material in her inguinal folds with erythema consistent with fungal infection but no induration crepitance or fluctuance. There is an erythematous bullous lesion to anterior R gauthier with bandage, and surrounding warmth and erythema. NEUROLOGICAL: Cranial nerves grossly intact. Normal speech, no gross focal motor or sensory deficits PSYCH: Normal mood, normal affect. Course - Re-evaluation Re-evalutation: 11/15/16 19:25 Patient reevaluated. She states that she is doing okay. Her lab results and the fact that clinically she has a worsening cellulitis to her right lower extremity. Also she has been given 40 mg of IV Lasix for her CHF exacerbation. We also discuss her worsening renal function today. Because of these findings she will be admitted today and she is comfortable with this plan. I discussed the case with Dr. Monzon who will admit the patient. She has been given IV clindamycin and vancomycin in the emergency department. - Vital Signs Vital signs: Temp Pulse Resp BP Pulse Ox 97.4 F 103 H 21 H 132/60 H 95 11/15/16 15:27 11/15/16 15:27 11/16/16 01:01 11/16/16 01:00 11/16/16 02:03 - Laboratory Result Diagrams: 11/16/16 02:44 11/15/16 17:20 Laboratory results interpreted by me: 11/15/16 11/15/16 11/15/16 17:20 17:20 17:20 WBC 13.3 H RBC 3.43 L Hgb 10.6 L Hct 32.2 L RDW 22.1 H Eosinophils % 6.6 H Absolute Neutrophils 8.4 H Absolute Eosinophils 0.9 H Potassium 5.3 H Chloride 108 H Carbon Dioxide 21 L BUN 56 H Creatinine 2.57 H Est GFR ( Amer) 22 L Est GFR (Non-Af Amer) 18 L Alkaline Phosphatase 155 H Ammonia NT-Pro-B Natriuret Pep 2400 H Albumin 2.9 L 11/15/16 17:20 WBC RBC Hgb Hct RDW Eosinophils % Absolute Neutrophils Absolute Eosinophils Potassium Chloride Carbon Dioxide BUN Creatinine Est GFR ( Amer) Est GFR (Non-Af Amer) Alkaline Phosphatase Ammonia < 8.7 L NT-Pro-B Natriuret Pep Albumin Discharge - Discharge Clinical Impression: Cellulitis of right anterior lower leg, Hyperkalemia CHF (congestive heart failure) Qualifiers: Congestive heart failure type: unspecified congestive heart failure type Congestive heart failure chronicity: acute on chronic Qualified Code(s): I50.9 - Heart failure, unspecified Acute renal failure Qualifiers: Acute renal failure type: unspecified Qualified Code(s): N17.9 - Acute kidney failure, unspecified Condition: Fair Disposition: ADMITTED INPATIENT Admitting Provider: [facility] - [facility] Admitted: Telemetry
[2016-11-15 17:40] LABS: ABSOLUTE BASOPHILS # (AUTO) 0.1 10^3/uL (0.0-0.2); ABSOLUTE EOSINOPHILS # (AUTO) 0.9 10^3/uL (0.0-0.6); ABSOLUTE LYMPHOCYTES (AUTO) 3.1 10^3/uL (0.5-4.7); ABSOLUTE MONOCYTES (AUTO) 0.8 10^3/uL (0.1-1.4); ABSOLUTE NEUT (AUTO) 8.4 10^3/uL (1.7-8.2); EOSINOPHILS % (AUTO) 6.6 % (0-6); HEMATOCRIT 32.2 % (36.0-47.0); HEMOGLOBIN 10.6 g/dL (12.0-15.5); HGB HCT DIFFERENCE -0.4; LYMPHOCYTES % (AUTO) 23.4 % (13-45); MEAN CORPUSCULAR HEMOGLOBIN 30.8 pg (27.0-33.4); MEAN CORPUSCULAR HGB CONC 32.8 g/dL (32.0-36.0); MEAN CORPUSCULAR VOLUME 94 fl (80-97); MONOCYTES % (AUTO) 5.7 % (3-13); RED BLOOD COUNT 3.43 10^6/uL (3.72-5.28); RED CELL DISTRIBUTION WIDTH 22.1 % (11.5-14.0); SEGMENTED NEUTROPHILS % (AUTO) 63.3 % (42-78); WHITE BLOOD COUNT 13.3 10^3/uL (4.0-10.5)
[2016-11-15 17:43] LABS: PROTHROMBIN TIME 15.4 SEC (11.4-15.4)
[2016-11-15 17:44] LABS: PARTIAL THROMBOPLASTIN TIME 35.4 SEC (23.5-35.8)
[2016-11-15 17:57] LABS: ALANINE AMINOTRANSFERASE 29 U/L (9-52); ALBUMIN 2.9 g/dL (3.5-5.0); ALKALINE PHOSPHATASE 155 U/L (38-126); ANION GAP 11 (5-19); ASPARTATE AMINO TRANSFERASE 31 U/L (14-36); BLOOD UREA NITROGEN 56 mg/dL (7-20); CARBON DIOXIDE 21 mmol/L (22-30); CHLORIDE 108 mmol/L (98-107); CREATINE KINASE 51 U/L (30-135); CREATININE RESULT 2.57 mg/dL (0.52-1.25); GLUCOSE 107 mg/dL (75-110); SODIUM 140.1 mmol/L (137-145); TOTAL PROTEIN 6.3 g/dL (6.3-8.2)
[2016-11-15 17:58] LABS: POTASSIUM 5.3 mmol/L (3.6-5.0)
[2016-11-15 18:06] LABS: CREATINE KINASE MB 1.43 ng/mL (<4.55); TROPONIN I 0.025 ng/mL
[2016-11-15] MEDS ORDERED: VANCOMYCIN HCL INJ 1000 MG VIAL IV ONE (18:50)
[2016-11-15] MEDS ORDERED: LACTULOSE SYRUP 20 GM/30 ML UDCUP PO ONE (19:27)
[2016-11-15] MEDS ORDERED: MAG HYDROX/AL HYDROX/SIMETH SUSP 30 ML UDCUP PO PRN (19:29)
[2016-11-15] MEDS ORDERED: ENALAPRILAT DIHYDRATE INJ/PF 1.25 MG/1 ML SDV IV PRN (19:29)
[2016-11-15] MEDS ORDERED: GLUCAGON,HUMAN RECOMB 1 MG INJ IM PRN (19:29)
[2016-11-15] MEDS ORDERED: DEXTROSE 50%-WATER 25 GM/50 ML DISP.SYRIN IV PRN ×2 (19:29)
[2016-11-15] MEDS ORDERED: DEXTROSE 40% GEL 15 GM TUBE PO PRN ×2 (19:29)
[2016-11-15] MEDS ORDERED: HUM INSULIN NPH/REG INSULIN HM 100 UNIT/1 ML 3 ML SUBCUT ONE (19:45)
[2016-11-15] MEDS ORDERED: NITROGLYCERIN 5 MG (0.2 MG/HR) PATCH.TD24 TD ONE (19:45)
[2016-11-15 20:59] LABS: CREATINE KINASE MB 1.38 ng/mL (<4.55); TROPONIN I 0.021 ng/mL
--- NOTE | 2016-11-15 21:55 | EKG REPORT ---
SEVERITY:- ABNORMAL ECG - SINUS RHYTHM PROBABLE INFERIOR INFARCT, AGE INDETERMINATE : Confirmed by: Alex Nuñez 15-Nov-2016 21:55:18
[2016-11-15 22:42] LABS: APPEARANCE,URINE CLOUDY; BILIRUBIN,URINE NEGATIVE (NEGATIVE); CALCIUM OXALATE CRYSTALS,URINE MODERATE /HPF; GLUCOSE, URINE NEGATIVE (NEGATIVE); KETONES,URINE NEGATIVE (NEGATIVE); LEUKOCYTE ESTERASE,URINE MODERATE (NEGATIVE); NITRITE,URINE NEGATIVE (NEGATIVE); PROTEIN,URINE 100 mg/dL (NEGATIVE); URINE SPECIFIC GRAVITY 1.018; UROBILINOGEN,URINE NEGATIVE mg/dL (<2.0)
[2016-11-15] MEDS: HEPARIN SOD (PORCINE) 5,000 UNIT/ML 1 ML SYRINGE SUBCUT SCH (22:53)
[2016-11-16] MEDS ORDERED: VANCOMYCIN HCL 0 MG in DEXTROSE 5%-WATER 250 ML IV NR ×2 (02:15→08:45)
[2016-11-16] MEDS ORDERED: VANCOMYCIN HCL 500 MG in DEXTROSE 5%-WATER 100 ML IV ONE (02:45)
[2016-11-16 02:54] LABS: ABSOLUTE BASOPHILS # (AUTO) 0.2 10^3/uL (0.0-0.2); ABSOLUTE EOSINOPHILS # (AUTO) 0.7 10^3/uL (0.0-0.6); ABSOLUTE LYMPHOCYTES (AUTO) 2.3 10^3/uL (0.5-4.7); ABSOLUTE MONOCYTES (AUTO) 0.7 10^3/uL (0.1-1.4); ABSOLUTE NEUT (AUTO) 6.3 10^3/uL (1.7-8.2); BASOPHILS % (AUTO) 1.5 % (0-2); EOSINOPHILS % (AUTO) 6.7 % (0-6); HEMATOCRIT 27.4 % (36.0-47.0); HEMOGLOBIN 9.2 g/dL (12.0-15.5); HGB HCT DIFFERENCE 0.2; MEAN CORPUSCULAR HEMOGLOBIN 31.4 pg (27.0-33.4); MEAN CORPUSCULAR HGB CONC 33.5 g/dL (32.0-36.0); MEAN CORPUSCULAR VOLUME 94 fl (80-97); MONOCYTES % (AUTO) 6.9 % (3-13); RED BLOOD COUNT 2.92 10^6/uL (3.72-5.28); RED CELL DISTRIBUTION WIDTH 22.4 % (11.5-14.0); SEGMENTED NEUTROPHILS % (AUTO) 61.9 % (42-78); WHITE BLOOD COUNT 10.1 10^3/uL (4.0-10.5)
[2016-11-16 03:12] LABS: ALBUMIN 1.9 g/dL (3.5-5.0); BILIRUBIN,TOTAL 0.6 mg/dL (0.2-1.3); TOTAL PROTEIN 5.1 g/dL (6.3-8.2)
[2016-11-16 03:24] LABS: CREATINE KINASE MB 1.67 ng/mL (<4.55); TROPONIN I 0.031 ng/mL
[2016-11-16] MEDS ORDERED: VANCOMYCIN HCL INJ 500 MG VIAL ONE (05:07)
[2016-11-16] MEDS ORDERED: LANSOPRAZOLE 30 MG TAB.RAP.DR PO SCH (06:00)
--- NOTE | 2016-11-16 06:08 | PDOC H&P ---
History of Present Illness Admission Date/PCP: 11/15/16 19:29 Patient complains of: Lower extremity swelling History of Present Illness: NEHA RUSSELL is a 71 year old female with a past medical history of congestive heart failure with unknown ejection fraction, insulin-dependent diabetes, hypothyroidism, osteoarthritis, obesity, MRSA positive surveillance and lower extremity venous stasis. Who transitioned from rehabilitation to home yesterday and noted by family to have extensive truncal edema and lower extremity edema with weeping brought to the emergency room for evaluation found to have +3 edema with a 2 x 2 centimeter open ulcer on the medial aspect of the right lower leg with hypotension tachycardia and leukocytosis. Also noted to have acute kidney injury with hydrochlorothiazide and metformin on NOV. Patient is a poor historian and unable to provide significant history. Given her history of MRSA surveillance positive she started on vancomycin and referred to the hospitalist for admission Past Medical History Cardiac Medical History: Reports: Congestive Heart Failure, Hyperlipidema, Hypertension Denies: DVT, Myocardial Infarction, Pulmonary Embolism Pulmonary Medical History: Reports: Asthma, Chronic Obstructive Pulmonary Disease (COPD) Neurological Medical History: Denies: Seizures Endocrine Medical History: Reports: Diabetes Mellitus Type 2, Hypothyroidism, Obesity Denies: Diabetes Mellitus Type 1, Hyperthyroidism GI Medical History: Denies: Cirrhosis, Gastroesophageal Reflux Disease, Hepatitis Musculoskeltal Medical History: Reports: Arthritis Psychiatric Medical History: Denies: Depression Infectious Medical History: Denies: Clostridium Difficile, Methicillin-Resistant Staph Aureus Past Surgical History Past Surgical History: Reports: Herniorrhaphy - Umbilical, Orthopedic Surgery - "Removal" of right kneefusion? Social History Information Source: Patient Smoking Status: Unknown if Ever Smoked Frequency of Alcohol Use: None Hx Recreational Drug Use: No Drugs: None Hx Prescription Drug Abuse: No - Advance Directive Resuscitation Status: Full Code Family History Family History: None, Hypertension Parental Family History Reviewed: Yes Children Family History Reviewed: Yes Sibling(s) Family History Reviewed.: Yes Medication/Allergy Home Medications: Allopurinol [Zyloprim 300 mg Tablet] 300 mg PO DAILY 09/25/16 Aspirin 81 mg PO DAILY 09/25/16 Colchicine [Colchicine 0.6 mg Tablet] 0.6 mg PO BID 09/25/16 Diclofenac Sodium [Voltaren] 100 gm TP DAILY PRN 09/25/16 Fexofenadine HCl [Cynthia] 180 mg PO DAILY 09/25/16 Insulin NPL/Insulin Lispro [Humalog Mix 50-50 Vial] 60 unit SQ TID 09/25/16 Levothyroxine Sodium [Synthroid 0.075 mg Tablet] 0.075 mg PO DAILY 09/25/16 Lisinopril 5 mg PO DAILY 09/25/16 [place]-3 Acid Ethyl Esters [Lovaza 1 gm Capsule] 1 gm PO BID 09/25/16 Pravastatin Sodium [Pravachol] 40 mg PO DAILY 09/25/16 Ranitidine HCl [Zantac 150 mg Tablet] 150 mg PO BID 09/25/16 Furosemide [Lasix] 40 mg PO DAILY 11/15/16 Hydroxyzine HCl [Atarax 25 mg Tablet] PO 11/15/16 Insulin NPL/Insulin Lispro [Humalog Mix 50-50 100 unit/mL] 11/15/16 Multivitamin [Multivitamins] 1 tab PO DAILY 11/15/16 Saxagliptin HCl/Metformin HCl [Kombiglyze Xr 2.5-1,000 mg Tab] 2 tab PO DAILY Triamterene/Hydrochlorothiazid [Maxzide 75 mg-50 mg Tablet] 1 each PO DAILY Allergies/Adverse Reactions: amoxicillin Allergy (Verified 09/25/16 22:22) ampicillin Allergy (Verified 09/25/16 22:22) cefepime Allergy (Verified 09/27/16 13:40) morphine Allergy (Verified 11/15/16 15:50) Sulfa (Sulfonamide Antibiotics) Allergy (Verified 09/25/16 22:21) rash Review of Systems ROS unobtainable: Due to mental status Physical Exam Vital Signs: Temp Pulse Resp BP Pulse Ox 97.4 F 103 H 21 H 132/60 H 95 11/15/16 15:27 11/15/16 15:27 11/16/16 01:01 11/16/16 01:00 11/16/16 02:03 General appearance: PRESENT: cooperative, mild distress, morbidly obese Head exam: PRESENT: atraumatic, normocephalic Eye exam: PRESENT: conjunctiva pink, EOMI, PERRLA. ABSENT: scleral icterus Ear exam: PRESENT: normal external ear exam Mouth exam: PRESENT: moist, tongue midline Neck exam: ABSENT: carotid bruit, JVD, lymphadenopathy, thyromegaly Respiratory exam: PRESENT: clear to auscultation karoline, symmetrical, tachypnea, unlabored. ABSENT: rales, rhonchi, wheezes Cardiovascular exam: PRESENT: RRR. ABSENT: diastolic murmur, gallop, rubs, systolic murmur Pulses: PRESENT: normal dorsalis pedis pul Vascular exam: PRESENT: normal capillary refill GI/Abdominal exam: PRESENT: ascites, distended, hypoactive bowel sounds, soft. ABSENT: firm, guarding, hernia, hyperactive bowel sounds, Florez's sign, normal bowel sounds, organolmegaly, rebound, rigid, tenderness Rectal exam: PRESENT: deferred Extremities exam: PRESENT: +2 edema - Right medial aspect of the lower leg with a 2 x 2 centimeter ulcer Neurological exam: PRESENT: alert, awake, oriented to person, oriented to place , CN II-XII grossly intact. ABSENT: motor sensory deficit Psychiatric exam: PRESENT: appropriate affect, normal mood. ABSENT: homicidal ideation, suicidal ideation Skin exam: PRESENT: dry, intact, warm, other - 2 x 2 centimeter ulcer of the right lower leg medial aspect. ABSENT: cyanosis, rash Results Laboratory Results: 11/16/16 02:44 11/15/16 11/16/16 11/16/16 22:10 02:44 02:44 WBC 10.1 RBC 2.92 L Hgb 9.2 L Hct 27.4 L MCV 94 MCH 31.4 MCHC 33.5 RDW 22.4 H Plt Count 234 Seg Neutrophils % 61.9 Lymphocytes % 23.0 Monocytes % 6.9 Eosinophils % 6.7 H Basophils % 1.5 Absolute Neutrophils 6.3 Absolute Lymphocytes 2.3 Absolute Monocytes 0.7 Absolute Eosinophils 0.7 H Absolute Basophils 0.2 Total Bilirubin 0.6 AST 28 ALT 32 Alkaline Phosphatase 119 Total Protein 5.1 L Albumin 1.9 L Urine Color DARK YELLOW Urine Appearance CLOUDY Urine pH 5.0 Ur Specific [place] 1.018 Urine Protein 100 H Urine Glucose (UA) NEGATIVE Urine Ketones NEGATIVE Urine Blood LARGE H Urine Nitrite NEGATIVE Ur Leukocyte Esterase MODERATE H Urine WBC (Auto) 36 Urine RBC (Auto) 24 11/15/16 11/15/16 11/16/16 20:23 20:23 02:44 Creatine Kinase 67 CK-MB (CK-2) 1.38 1.67 Troponin I 0.021 0.031 11/16/16 02:44 Creatine Kinase 156 H CK-MB (CK-2) Troponin I Impressions: Chest X-Ray 11/15/16 15:52 IMPRESSION: Low lung volumes. Minimal basilar atelectasis. Assessment & Plan - Diagnosis (1) Cellulitis of right anterior lower leg Is this a current diagnosis for this admission?: YesPlan: Complicated by venous stasis, MRSA surveillance history positive she started on vancomycin empirically cultures pending follow-up CBC and elevation of the lower extremity (2) Sepsis Is this a current diagnosis for this admission?: YesPlan: Please see #1 IV fluid challenge when necessary pressors and correction of the underlying cause (3) Acute renal failure (ARF) Qualifiers: Acute renal failure type: unspecified Qualified Code(s): N17.9 - Acute kidney failure, unspecified Is this a current diagnosis for this admission?: YesPlan: Likely secondary to metformin, hydrochlorothiazide, sepsis with dehydration, IV fluid challenge avoid nephrotoxic meds and doses and reevaluation of chemistry (4) Diabetes Qualifiers: Diabetes mellitus type: type 2 Diabetes mellitus complication status: with unspecified complications Diabetes mellitus long chain beamer insulin use: without long chain beamer use Qualified Code(s): E11.8 - Type 2 diabetes mellitus with unspecified complications; Z79.4 - intermediate project manager (current) use of insulin Is this a current diagnosis for this admission?: YesPlan: Home regiment with optimization using Humalog sliding scale and discontinuation of metformin - Time Time Spent: 50 to 70 Minutes
[2016-11-16] MEDS: HEPARIN SOD (PORCINE) 5,000 UNIT/ML 1 ML SYRINGE SUBCUT SCH ×3 (06:50→22:00)
[2016-11-16] MEDS ORDERED: HUM INSULIN NPH/REG INSULIN HM 100 UNIT/1 ML 3 ML SUBCUT SCH (08:00)
[2016-11-16] MEDS ORDERED: PHARMACY COMMUNICATION ORDER MC NR ×2 (08:45→10:00)
[2016-11-16 09:22] LABS: CREATINE KINASE MB 2.6 ng/mL (<4.55); TROPONIN I 0.03 ng/mL
[2016-11-16] MEDS ORDERED: FUROSEMIDE INJ/PF 40 MG/4 ML SDV IV SCH (10:00)
[2016-11-16] MEDS ORDERED: INSULIN LISPRO 100 UNIT/ML 3 ML VIAL SUBCUT SCH (10:00)
[2016-11-16] MEDS ORDERED: (PENDING PHARMACY ID) (Fexofenadine Hcl [Allegra Allergy] 180 MG) PO SCH (10:00)
[2016-11-16 10:03] LABS: THYROID STIMULATING HORMONE 4.16 uIU/mL (0.47-4.68)
[2016-11-16] MEDS ORDERED: LORATADINE 10 MG TABLET PO ONE ×2 (10:30→18:00)
[2016-11-16] MEDS ORDERED: ALBUMIN HUMAN 50 ML IV SCH (10:30)
[2016-11-16 10:31] LABS: ANION GAP 8 (5-19); BLOOD UREA NITROGEN 58 mg/dL (7-20); CALCIUM 8.6 mg/dL (8.4-10.2); CARBON DIOXIDE 21 mmol/L (22-30); CHLORIDE 110 mmol/L (98-107); CREATININE RESULT 2.61 mg/dL (0.52-1.25); GLUCOSE 42 mg/dL (75-110); MAGNESIUM 1.5 mg/dL (1.6-2.3); POTASSIUM 4.9 mmol/L (3.6-5.0); SODIUM 139.3 mmol/L (137-145)
[2016-11-16] MEDS: LACTOBACILLUS ACIDOPHILUS 250 MG TAB PO SCH ×2 (12:21→17:15)
[2016-11-16] MEDS: LEVOTHYROXINE SODIUM 0.075 MG TABLET PO SCH (12:21)
[2016-11-16] MEDS: OMEGA-3 ACID ETHYL ESTERS 1 GM CAPSULE PO SCH (12:21)
[2016-11-16] MEDS: DOCUSATE SODIUM 100 MG CAPSULE PO SCH (12:22)
[2016-11-16] MEDS: ASPIRIN 81 MG TABLET, CHEWABLE PO SCH (12:22)
[2016-11-16] MEDS ORDERED: GABAPENTIN 100 MG CAPSULE PO SCH (14:00)
--- NOTE | 2016-11-16 14:54 | Physician Advisory Note ---
Physician Advisor ProgressNote .: Pursuant to the plan for [facility], I have reviewed the medical record for this patient. Physician Advisor Statement: Nice documentation of suspected sepsis in H&P. Possible documentation opportunities if attending agrees: 1. "ARF, suspect ATN due to meds + intravascular volume depletion from sepsis" (need type of ARF whenever stating ARF now) 2. "CKD stage 3-4" (based on baseline Cr appearing to be 1.4s - 1.9s) 3. "Acute metabolic acidosis due to sepsis + ARF" (or ....) 4. "chronic CHF, suspect ___ type" 5. "suspected sepsis, POA, due to cellulitis, despite neg BCs" (of course, if BCs grow organism, state the organism) - Need to state causative infxn for sepsis. Discussion: 71yo female w/ chronic co-morbidities including COPD, HTN, DM-2, chronic __ type CHF, hypothyroidism, (+)MRSA on surveillance - presented 11/15 PM to ED w/SOB, abd girth/pain/distension, BLE edema, & RLE worsening erythema/warmth - on meds incl metformin & HCTZ (+) HR 103, RR 16-21, then later up to 20s-30s; BP initially 110/37 but then dropped as low as 83/28 & 97/44. WBC 13.3 initially. Lactate borderline at 1.9. K up to 5.3 with bicarb 21 & Cr 2.57. U/A (+) for infxn, protein, blood. CXR = low lung vol.s, min basilar atelectasis. BNP 2400 (was 7310 on 09/25/16 ). ED gave IV Lasix 40mg, IV vanc + IV clinda. Attending ordered I/O, daily wts, O2 2L, tele, gis administrator consult, f/u labs, IV vanc, PT eval. Status: Pt came in with ARF/JEFF, which is still not back to baseline after 1 MN of hospital care. She appeared fluid overloaded overall, with edema & tremendous symptomatic ascites, but was acutely hypotensive requiring volume resuscitation that could precipitate acute CHF exacerbation. Now she is getting IV Bumex bid, which could hopefully help the fluid overload, but could potentially worsen the JFEF. She appeared to be septic initially with leukocytosis, tachycardia, tachypnea, hypotension, and this AM was hypoglycemic & had hypothermia with recurrence of tachycardia, leading to orders for BC & warming blanket. Given her previous surveillance results, MRSA was suspected as organism, so IV vanc is being given, although that could potentially worsen the current JEFF. She is clearly not yet sufficiently stable clinically for d/c today after 1MN of hospital care. Tx in inpatient hospital setting medically reasonable & necessary to protect pt's health, safety, & medical condition. Appropriate for Inpt status. Thanks for your help with documentation accuracy/specificity improvement! Earnestine Villanueva MD [facility] Physician Advisor, Fellow of Hospital Medicine
[2016-11-16] MEDS: BUMETANIDE INJ/PF 1 MG/4 ML SDV IV SCH ×2 (16:07→17:16)
[2016-11-16] MEDS: NYSTATIN TOPICAL POWDER 15 GM TP SCH ×2 (16:08→17:16)
[2016-11-16] MEDS: NITROGLYCERIN 5 MG (0.2 MG/HR) PATCH.TD24 TD SCH (17:14)
[2016-11-16] MEDS: LANSOPRAZOLE 15 MG TAB.RAP.DR PO SCH (17:15)
[2016-11-16] MEDS: GABAPENTIN 300 MG CAPSULE PO SCH (17:15)
[2016-11-16] MEDS: ACETAMINOPHEN 325 MG TABLET PO PRN (18:14)
[2016-11-16] MEDS: ATORVASTATIN CALCIUM 10 MG TABLET PO SCH (22:00)
[2016-11-17] MEDS: HEPARIN SOD (PORCINE) 5,000 UNIT/ML 1 ML SYRINGE SUBCUT SCH ×3 (05:31→22:01)
[2016-11-17] MEDS: VANCOMYCIN HCL 1,000 MG in DEXTROSE 5%-WATER 250 ML IV SCH (05:31)
[2016-11-17] MEDS: LANSOPRAZOLE 15 MG TAB.RAP.DR PO SCH ×2 (05:31→17:07)
[2016-11-17] MEDS ORDERED: LEVOTHYROXINE SODIUM 0.075 MG TABLET PO SCH (06:00)
[2016-11-17 06:47] LABS: ABSOLUTE BASOPHILS # (AUTO) 0.1 10^3/uL (0.0-0.2); ABSOLUTE EOSINOPHILS # (AUTO) 1.3 10^3/uL (0.0-0.6); ABSOLUTE LYMPHOCYTES (AUTO) 2.8 10^3/uL (0.5-4.7); ABSOLUTE MONOCYTES (AUTO) 0.5 10^3/uL (0.1-1.4); ABSOLUTE NEUT (AUTO) 4.2 10^3/uL (1.7-8.2); BASOPHILS % (AUTO) 1.3 % (0-2); EOSINOPHILS % (AUTO) 14.7 % (0-6); HEMATOCRIT 27.2 % (36.0-47.0); HEMOGLOBIN 8.9 g/dL (12.0-15.5); HGB HCT DIFFERENCE -0.5; LYMPHOCYTES % (AUTO) 31.2 % (13-45); MEAN CORPUSCULAR HEMOGLOBIN 30.8 pg (27.0-33.4); MEAN CORPUSCULAR HGB CONC 32.8 g/dL (32.0-36.0); MEAN CORPUSCULAR VOLUME 94 fl (80-97); MONOCYTES % (AUTO) 5.7 % (3-13); RED CELL DISTRIBUTION WIDTH 21.8 % (11.5-14.0); SEGMENTED NEUTROPHILS % (AUTO) 47.1 % (42-78); WHITE BLOOD COUNT 8.9 10^3/uL (4.0-10.5)
[2016-11-17 06:59] LABS: ANION GAP 7 (5-19); BLOOD UREA NITROGEN 57 mg/dL (7-20); CALCIUM 8.3 mg/dL (8.4-10.2); CARBON DIOXIDE 22 mmol/L (22-30); CHLORIDE 109 mmol/L (98-107); CREATININE RESULT 2.38 mg/dL (0.52-1.25); GLUCOSE 72 mg/dL (75-110); POTASSIUM 4.9 mmol/L (3.6-5.0); SODIUM 138.2 mmol/L (137-145)
[2016-11-17] MEDS: LEVOTHYROXINE SODIUM 0.075 MG TABLET PO SCH (09:27)
[2016-11-17] MEDS: OMEGA-3 ACID ETHYL ESTERS 1 GM CAPSULE PO SCH (09:27)
[2016-11-17] MEDS: NYSTATIN TOPICAL POWDER 15 GM TP SCH ×2 (09:28→17:06)
[2016-11-17] MEDS: LACTOBACILLUS ACIDOPHILUS 250 MG TAB PO SCH ×2 (09:28→17:07)
[2016-11-17] MEDS: LORATADINE 10 MG TABLET PO SCH (09:28)
[2016-11-17] MEDS: ASPIRIN 81 MG TABLET, CHEWABLE PO SCH (09:28)
[2016-11-17] MEDS: DOCUSATE SODIUM 100 MG CAPSULE PO SCH (09:28)
[2016-11-17] MEDS: BUMETANIDE INJ/PF 1 MG/4 ML SDV IV SCH ×2 (09:28→17:07)
--- NOTE | 2016-11-17 13:57 | XCELERA REPORT ---
[address] [address] Lower Extremity Venous Evaluation Name: NEHA RUSSELL Age: 71 yrs Gender: Female : 1945 Patient Status: Inpatient Patient Location: [id number] Study Date: 11/16/2016 10:16 AM Procedure: Color flow and duplex imaging bilaterally of the veins of the lower extremities as well as the Common Femoral veins. Reason For Study: ble swelling and pain Ordering Physician: JONI MONTEMAYOR Performed By: Luara Muñoz Right Sided Venous Evaluation Normal vessel filling wall to wall, compression and augmentation as well as Colour flow down to the infrageniculate veins. Subcutaneous edema noted. Left Sided Venous Evaluation Normal vessel filling wall to wall, compression and augmentation as well as Colour flow down to the infrageniculate veins. Subcutaneous edema noted. Interpretation Summary No duplex evidence of DVT or obstruction in the bilateral lower extremities. Challenging study due to body habitus and peripheral edema. : JONI MONTEMAYOR [place]
--- NOTE | 2016-11-17 14:04 | PDOC PROGRESS REPORT ---
Subjective Progress Note for:: 11/17/16 Subjective:: Patient states that she had increasing pain and swelling in bilateral lower extremities since being discharged from the hospital in [facility] to rehabilitation a few weeks ago. She was just discharged from rehabilitation to home a couple days ago. She has chronic swelling in her legs at baseline. Patient denies fever, chills, headache, new focal weakness, chest pain, shortness of breath, abdominal pain, nausea, vomiting, diarrhea, constipation. Physical Exam Vital Signs: Temp Pulse Resp BP Pulse Ox 97.9 F 94 16 138/37 H 99 11/17/16 11:29 11/17/16 11:29 11/17/16 11:29 11/17/16 11:29 11/17/16 11:29 Intake & Output 11/16/16 11/17/16 11/18/16 06:59 06:59 06:59 Intake Total 962 222 Output Total 1600 500 Balance -638 -278 Weight 111.4 kg GENERAL: No acute distress HEENT: Conjunctiva clear, nonicteric, moist mucous membranes, no JVD, midline trachea RESPIRATORY: Clear to auscultation bilaterally, no wheezes, no rhonchi CARDIAC: Regular rate and rhythm, no murmurs/gallops/rubs ABDOMEN: Soft, nondistended, nontender, positive bowel sounds, no rebound, no guarding EXTREMETIES: Pitting edema in bilateral lower extremities NEUROLOGIC: Alert, oriented to person/place/time, CN's grossly intact, no focal deficits SKIN: Erythema in bilateral lower extremities distal to the knees, large superficial sloughing skin wound to right tibia PSYCH: Normal mood, normal affect Results Laboratory Results: 11/17/16 05:40 11/17/16 05:40 11/17/16 11/17/16 05:40 05:40 WBC 8.9 RBC 2.90 L Hgb 8.9 L Hct 27.2 L MCV 94 MCH 30.8 MCHC 32.8 RDW 21.8 H Plt Count 220 Seg Neutrophils % 47.1 Lymphocytes % 31.2 Monocytes % 5.7 Eosinophils % 14.7 H Basophils % 1.3 Absolute Neutrophils 4.2 Absolute Lymphocytes 2.8 Absolute Monocytes 0.5 Absolute Eosinophils 1.3 H Absolute Basophils 0.1 Sodium 138.2 Potassium 4.9 Chloride 109 H Carbon Dioxide 22 Anion Gap 7 BUN 57 H Creatinine 2.38 H Est GFR ( Amer) 24 L Est GFR (Non-Af Amer) 20 L Glucose 72 L Calcium 8.3 L 11/15/16 22:10 Catheterized Urine Urine Culture - Final C.albicans/C.dubliniensis 11/15/16 11/15/16 11/16/16 20:23 20:23 02:44 Creatine Kinase 67 CK-MB (CK-2) 1.38 1.67 Troponin I 0.021 0.031 11/16/16 11/16/16 11/16/16 02:44 08:25 08:25 Creatine Kinase 156 H 280 H CK-MB (CK-2) 2.60 Troponin I 0.030 Impressions: Chest X-Ray 11/15/16 15:52 IMPRESSION: Low lung volumes. Minimal basilar atelectasis. Assessment & Plan - Diagnosis (1) Sepsis Is this a current diagnosis for this admission?: YesPlan: Secondary to lower extremity cellulitis. 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 (3) Acute renal failure Qualifiers: Acute renal failure type: unspecified Qualified Code(s): N17.9 - Acute kidney failure, unspecified Is this a current diagnosis for this admission?: YesPlan: Patient's baseline creatinine is around 1.4-1.5. Treat decompensated heart failure, sepsis/cellulitis. Metformin discontinued. (4) Hypothyroid Is this a current diagnosis for this admission?: YesPlan: Synthroid. (5) CHF (congestive heart failure) Qualifiers: Congestive heart failure type: unspecified congestive heart failure type Congestive heart failure chronicity: acute on chronic Qualified Code(s): I50.9 - Heart failure, unspecified Is this a current diagnosis for this admission?: YesPlan: Acutely decompensated. EF unknown. Check echocardiogram. Continue IV Bumex for now. (6) Anemia of chronic disease Is this a current diagnosis for this admission?: YesPlan: Iron, B-12, folic acid levels normal recently. Likely secondary to chronic disease. (7) Diabetes Qualifiers: Diabetes mellitus type: type 2 Diabetes mellitus complication status: with unspecified complications Diabetes mellitus intermediate teacher insulin use: without penitentiary use Qualified Code(s): E11.8 - Type 2 diabetes mellitus with unspecified complications; Z79.4 - termite treater (current) use of insulin Is this a current diagnosis for this admission?: YesPlan: Metformin discontinued secondary to renal failure. Sliding scale insulin coverage. - Time Time Spent with patient: 35 or more minutes Anticipated discharge: Home with Homehealth - Inpatient Certification Based on my medical assessment, after consideration of the patient's comorbidities, presenting symptoms, or acuity I expect that the services needed warrant INPATIENT care.: Yes I certify that my determination is in accordance with my understanding of Medicare's requirements for reasonable and necessary INPATIENT services [42 CFR 412.3e].: Yes Medical Necessity: Need For Continuous Telemetry Monitoring, Need for IV Antibiotics
[2016-11-17] MEDS: ACETAMINOPHEN 325 MG TABLET PO PRN ×2 (15:18→22:01)
[2016-11-17] MEDS: NITROGLYCERIN 5 MG (0.2 MG/HR) PATCH.TD24 TD SCH (17:07)
[2016-11-17] MEDS: GABAPENTIN 300 MG CAPSULE PO SCH (17:07)
--- NOTE | 2016-11-17 20:25 | XCELERA REPORT ---
[address] [address] Transthoracic Echocardiogram Report Name: NEHA RUSSELL Age: 71 yrs Gender: Female : 1945 Patient Status: Inpatient Patient Location: 3S\S\331\S\A Study Date: 11/17/2016 02:15 PM Height: 67 in Weight: 245 lb BSA: 2.2 m2 Procedure: A complete two-dimensional transthoracic echocardiogram was performed (2D, M-mode, spectral and color flow Doppler). The study was technically difficult with many images being suboptimal in quality. Reason For Study: CHF, edema Ordering Physician: DESTINY HILTON Performed By: Laura Muñoz Interpretation Summary The study was technically difficult with many images being suboptimal in quality. The left ventricular ejection fraction is normal. Doppler measurements suggest impaired left ventricular relaxation, which is associated with grade I/IV or mild diastolic dysfunction There is mild concentric left ventricular hypertrophy. The left ventricle is grossly normal size. Wall motion cannot be accurately commented on, but no definite regional wall motion abnormalities noted. The right ventricle is grossly normal size. The right ventricular systolic function is normal. The left atrium is moderately dilated. The right atrium is normal in size There is no mitral valve stenosis. There is a mild amount of mitral regurgitation There is no aortic valve stenosis There is a moderate amount of aortic regurgitation There is a trace or physiologic amount of tricuspid regurgitation Tricuspid regurgitation jet envelope not well defined to measure RV systolic pressure accurately. The aortic root is not well visualized. The inferior vena cava was not well visualized There is no pericardial effusion. MMode/2D Measurements \T\ Calculations RVDd: 2.7 cm LVIDd: 4.6 cm FS: 33.2 % Ao root diam: 3.4 cm IVSd: 1.1 cm LVIDs: 3.1 cm EDV(Teich): 99.4 ml LVPWd: 1.1 cm ESV(Teich): 37.9 ml Ao root area: 9.1 cm2 EF(Teich): 61.9 % LA dimension: 4.7 cm LVOT diam: 2.2 cm LVOT area: 3.7 cm2 Doppler Measurements \T\ Calculations MV E max lynn: MV P1/2t max lynn: Ao V2 max: AI max lynn: 90.3 cm/sec 89.8 cm/sec 208.8 cm/sec 348.6 cm/sec MV A max lynn: MV P1/2t: 52.0 msec Ao max PG: AI max P.0 cm/sec MVA(P1/2t): 4.2 cm2 17.4 mmHg 48.6 mmHg MV E/A: 0.80 MV dec slope: BENIGNO(V,D): 3.3 cm2 AI dec slope: 505.8 cm/sec2 337.8 cm/sec2 AI P1/2t: 302.2 msec LV V1 max PG: PA V2 max: TR max lynn: 13.6 mmHg 77.3 cm/sec 231.1 cm/sec LV V1 max: PA max P.5 mmHg TR max P.5 cm/sec 21.4 mmHg Left Ventricle The left ventricle is grossly normal size. There is mild concentric left ventricular hypertrophy. The left ventricular ejection fraction is normal. Doppler measurements suggest impaired left ventricular relaxation, which is associated with grade I/IV or mild diastolic dysfunction. Wall motion cannot be accurately commented on, but no definite regional wall motion abnormalities noted. Right Ventricle The right ventricle is grossly normal size. There is normal right ventricular wall thickness. The right ventricular systolic function is normal. Atria The right atrium is normal in size. The left atrium is moderately dilated. Mitral Valve The mitral valve leaflets are sclerotic, but show no functional abnormalities. There is no mitral valve stenosis. There is a mild amount of mitral regurgitation. Aortic Valve The aortic valve is mildly calcified. There is no aortic valve stenosis. There is a moderate amount of aortic regurgitation. Tricuspid Valve The tricuspid valve is not well visualized secondary to technical limitations. There is no tricuspid stenosis. There is a trace or physiologic amount of tricuspid regurgitation. Tricuspid regurgitation jet envelope not well defined to measure RV systolic pressure accurately. Pulmonic Valve The pulmonic valve is not well visualized. Great Vessels The aortic root is not well visualized. The inferior vena cava was not well visualized. Effusions There is no pericardial effusion. : DESTINY HILTON > Alex Nuñez
[2016-11-17] MEDS: ATORVASTATIN CALCIUM 10 MG TABLET PO SCH (22:01)
[2016-11-18] MEDS: HEPARIN SOD (PORCINE) 5,000 UNIT/ML 1 ML SYRINGE SUBCUT SCH ×3 (05:35→22:12)
[2016-11-18] MEDS: LANSOPRAZOLE 15 MG TAB.RAP.DR PO SCH ×2 (05:35→17:02)
[2016-11-18] MEDS: VANCOMYCIN HCL 1,000 MG in DEXTROSE 5%-WATER 250 ML IV SCH (06:24)
[2016-11-18 06:51] LABS: ABSOLUTE BASOPHILS # (AUTO) 0.1 10^3/uL (0.0-0.2); ABSOLUTE EOSINOPHILS # (AUTO) 1.4 10^3/uL (0.0-0.6); ABSOLUTE LYMPHOCYTES (AUTO) 3.4 10^3/uL (0.5-4.7); ABSOLUTE MONOCYTES (AUTO) 0.7 10^3/uL (0.1-1.4); ABSOLUTE NEUT (AUTO) 4.1 10^3/uL (1.7-8.2); BASOPHILS % (AUTO) 1.3 % (0-2); EOSINOPHILS % (AUTO) 14.6 % (0-6); HEMATOCRIT 27.3 % (36.0-47.0); HEMOGLOBIN 9.2 g/dL (12.0-15.5); HGB HCT DIFFERENCE 0.3; LYMPHOCYTES % (AUTO) 34.5 % (13-45); MEAN CORPUSCULAR HEMOGLOBIN 31.5 pg (27.0-33.4); MEAN CORPUSCULAR HGB CONC 33.6 g/dL (32.0-36.0); MEAN CORPUSCULAR VOLUME 94 fl (80-97); MONOCYTES % (AUTO) 7.4 % (3-13); RED BLOOD COUNT 2.91 10^6/uL (3.72-5.28); RED CELL DISTRIBUTION WIDTH 21.9 % (11.5-14.0); SEGMENTED NEUTROPHILS % (AUTO) 42.2 % (42-78); WHITE BLOOD COUNT 9.8 10^3/uL (4.0-10.5)
[2016-11-18 07:03] LABS: ANION GAP 6 (5-19); BLOOD UREA NITROGEN 58 mg/dL (7-20); CALCIUM 8.3 mg/dL (8.4-10.2); CARBON DIOXIDE 23 mmol/L (22-30); CHLORIDE 108 mmol/L (98-107); CREATININE RESULT 2.29 mg/dL (0.52-1.25); GLUCOSE 105 mg/dL (75-110); POTASSIUM 4.9 mmol/L (3.6-5.0); SODIUM 136.8 mmol/L (137-145)
[2016-11-18] MEDS: ASPIRIN 81 MG TABLET, CHEWABLE PO SCH (10:36)
[2016-11-18] MEDS: LEVOTHYROXINE SODIUM 0.075 MG TABLET PO SCH (10:36)
[2016-11-18] MEDS: LORATADINE 10 MG TABLET PO SCH (10:36)
[2016-11-18] MEDS: LACTOBACILLUS ACIDOPHILUS 250 MG TAB PO SCH ×2 (10:36→17:01)
[2016-11-18] MEDS: OMEGA-3 ACID ETHYL ESTERS 1 GM CAPSULE PO SCH (10:37)
[2016-11-18] MEDS: BUMETANIDE INJ/PF 1 MG/4 ML SDV IV SCH ×2 (10:37→17:03)
[2016-11-18] MEDS: NYSTATIN TOPICAL POWDER 15 GM TP SCH ×2 (10:38→17:03)
[2016-11-18] MEDS: DOCUSATE SODIUM 100 MG CAPSULE PO SCH (10:38)
--- NOTE | 2016-11-18 16:36 | PDOC PROGRESS REPORT ---
Subjective Progress Note for:: 11/18/16 Subjective:: Patient states that the pain and swelling in her legs is improved. Patient denies fever, chills, headache, new focal weakness, chest pain, shortness of breath, abdominal pain, nausea, vomiting, diarrhea, constipation. Physical Exam Vital Signs: Temp Pulse Resp BP Pulse Ox 98.1 F 98 16 119/32 L 100 11/18/16 07:45 11/18/16 14:00 11/18/16 07:45 11/18/16 07:45 11/18/16 07:45 Intake & Output 11/17/16 11/18/16 11/19/16 06:59 06:59 06:59 Intake Total 962 1202 Output Total 1600 1800 Balance -638 -598 Weight 111.4 kg 124.3 kg GENERAL: No acute distress HEENT: Conjunctiva clear, nonicteric, moist mucous membranes, no JVD, midline trachea RESPIRATORY: Clear to auscultation bilaterally, no wheezes, no rhonchi CARDIAC: Regular rate and rhythm, no murmurs/gallops/rubs ABDOMEN: Soft, nondistended, nontender, positive bowel sounds, no rebound, no guarding EXTREMETIES: 1+ edema in bilateral lower extremities NEUROLOGIC: Alert, oriented to person/place/time, CN's grossly intact, no focal deficits SKIN: Erythema in bilateral lower extremities distal to the knees improved as compared to yesterday's exam, large superficial sloughing skin wound to right tibia PSYCH: Normal mood, normal affect Results Laboratory Results: 11/18/16 05:58 11/18/16 05:58 11/18/16 11/18/16 05:58 05:58 WBC 9.8 RBC 2.91 L Hgb 9.2 L Hct 27.3 L MCV 94 MCH 31.5 MCHC 33.6 RDW 21.9 H Plt Count 213 Seg Neutrophils % 42.2 Lymphocytes % 34.5 Monocytes % 7.4 Eosinophils % 14.6 H Basophils % 1.3 Absolute Neutrophils 4.1 Absolute Lymphocytes 3.4 Absolute Monocytes 0.7 Absolute Eosinophils 1.4 H Absolute Basophils 0.1 Sodium 136.8 L Potassium 4.9 Chloride 108 H Carbon Dioxide 23 Anion Gap 6 BUN 58 H Creatinine 2.29 H Est GFR ( Amer) 25 L Est GFR (Non-Af Amer) 21 L Glucose 105 Calcium 8.3 L 11/15/16 22:10 Catheterized Urine Urine Culture - Final C.albicans/C.dubliniensis 11/15/16 11/15/16 11/16/16 20:23 20:23 02:44 Creatine Kinase 67 CK-MB (CK-2) 1.38 1.67 Troponin I 0.021 0.031 11/16/16 11/16/16 11/16/16 02:44 08:25 08:25 Creatine Kinase 156 H 280 H CK-MB (CK-2) 2.60 Troponin I 0.030 Impressions: Chest X-Ray 11/15/16 15:52 IMPRESSION: Low lung volumes. Minimal basilar atelectasis. Assessment & Plan - Diagnosis (1) Sepsis Is this a current diagnosis for this admission?: YesPlan: Secondary to lower extremity cellulitis. 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 Anticipate transitioning to oral antibiotic in 2-3 days. (3) Acute renal failure Qualifiers: Acute renal failure type: unspecified Qualified Code(s): N17.9 - Acute kidney failure, unspecified Is this a current diagnosis for this admission?: YesPlan: Patient's baseline creatinine is around 1.4-1.5. Treat decompensated heart failure, sepsis/cellulitis. Metformin discontinued. (4) Hypothyroid Is this a current diagnosis for this admission?: YesPlan: Synthroid. (5) CHF (congestive heart failure) Qualifiers: Congestive heart failure type: unspecified congestive heart failure type Congestive heart failure chronicity: acute on chronic Qualified Code(s): I50.9 - Heart failure, unspecified Is this a current diagnosis for this admission?: YesPlan: Acutely decompensated. Echocardiogram shows normal EF, grade 1/4 diastolic dysfunction, moderate aortic insufficiency. Continue IV Bumex for now. (6) Anemia of chronic disease Is this a current diagnosis for this admission?: YesPlan: Iron, B-12, folic acid levels normal recently. Likely secondary to chronic disease. (7) Diabetes Qualifiers: Diabetes mellitus type: type 2 Diabetes mellitus complication status: with unspecified complications Diabetes mellitus superintendent terminal insulin use: without superintendent terminal use Qualified Code(s): E11.8 - Type 2 diabetes mellitus with unspecified complications; Z79.4 - oysterman (current) use of insulin Is this a current diagnosis for this admission?: YesPlan: Metformin discontinued secondary to renal failure. Sliding scale insulin coverage. - Time Time Spent with patient: 35 or more minutes
[2016-11-18] MEDS: NITROGLYCERIN 5 MG (0.2 MG/HR) PATCH.TD24 TD SCH (17:02)
[2016-11-18] MEDS: GABAPENTIN 300 MG CAPSULE PO SCH (17:02)
[2016-11-18] MEDS: ATORVASTATIN CALCIUM 10 MG TABLET PO SCH (22:12)
[2016-11-19] MEDS: LANSOPRAZOLE 15 MG TAB.RAP.DR PO SCH ×2 (05:38→18:39)
[2016-11-19] MEDS: HEPARIN SOD (PORCINE) 5,000 UNIT/ML 1 ML SYRINGE SUBCUT SCH ×3 (05:38→21:27)
[2016-11-19] MEDS: VANCOMYCIN HCL 1,000 MG in DEXTROSE 5%-WATER 250 ML IV SCH (05:38)
[2016-11-19 08:06] LABS: ABSOLUTE BASOPHILS # (AUTO) 0.1 10^3/uL (0.0-0.2); ABSOLUTE EOSINOPHILS # (AUTO) 1.1 10^3/uL (0.0-0.6); ABSOLUTE LYMPHOCYTES (AUTO) 2.6 10^3/uL (0.5-4.7); ABSOLUTE MONOCYTES (AUTO) 0.5 10^3/uL (0.1-1.4); ABSOLUTE NEUT (AUTO) 3.5 10^3/uL (1.7-8.2); BASOPHILS % (AUTO) 1.7 % (0-2); EOSINOPHILS % (AUTO) 14.3 % (0-6); HEMATOCRIT 25.4 % (36.0-47.0); HEMOGLOBIN 8.5 g/dL (12.0-15.5); HGB HCT DIFFERENCE 0.1; MEAN CORPUSCULAR HEMOGLOBIN 31.9 pg (27.0-33.4); MEAN CORPUSCULAR HGB CONC 33.5 g/dL (32.0-36.0); MEAN CORPUSCULAR VOLUME 95 fl (80-97); MONOCYTES % (AUTO) 6.6 % (3-13); RED BLOOD COUNT 2.68 10^6/uL (3.72-5.28); RED CELL DISTRIBUTION WIDTH 21.6 % (11.5-14.0); SEGMENTED NEUTROPHILS % (AUTO) 44.4 % (42-78); WHITE BLOOD COUNT 7.9 10^3/uL (4.0-10.5)
[2016-11-19 08:19] LABS: ANION GAP 7 (5-19); BLOOD UREA NITROGEN 55 mg/dL (7-20); CALCIUM 8.2 mg/dL (8.4-10.2); CARBON DIOXIDE 23 mmol/L (22-30); CHLORIDE 107 mmol/L (98-107); CREATININE RESULT 2.19 mg/dL (0.52-1.25); GLUCOSE 136 mg/dL (75-110); MAGNESIUM 1.4 mg/dL (1.6-2.3); POTASSIUM 4.6 mmol/L (3.6-5.0); SODIUM 137.1 mmol/L (137-145)
--- NOTE | 2016-11-19 11:07 | PDOC PROGRESS REPORT ---
Subjective Progress Note for:: 11/19/16 Subjective:: Patient with continued pain and swelling in her legs. Patient denies fever, chills, headache, new focal weakness, chest pain, shortness of breath, abdominal pain, nausea, vomiting, diarrhea, constipation. Physical Exam Vital Signs: Temp Pulse Resp BP Pulse Ox 98.4 F 87 20 142/28 H 97 11/19/16 04:59 11/19/16 07:00 11/19/16 04:59 11/19/16 04:59 11/19/16 04:59 Intake & Output 11/18/16 11/19/16 11/20/16 06:59 06:59 06:59 Intake Total 1202 1470 Output Total 1800 2000 Balance -598 -530 Weight 124.3 kg 120.9 kg GENERAL: No acute distress HEENT: Conjunctiva clear, nonicteric, moist mucous membranes, no JVD, midline trachea RESPIRATORY: Clear to auscultation bilaterally, no wheezes, no rhonchi CARDIAC: Regular rate and rhythm, no murmurs/gallops/rubs ABDOMEN: Soft, nondistended, nontender, positive bowel sounds, no rebound, no guarding EXTREMETIES: 1+ edema in bilateral lower extremities NEUROLOGIC: Alert, oriented to person/place/time, CN's grossly intact, no focal deficits SKIN: Erythema in bilateral lower extremities distal to the knees improved as compared to yesterday's exam, large superficial sloughing skin wound to right tibia PSYCH: Normal mood, normal affect Results Laboratory Results: 11/19/16 07:25 11/19/16 07:25 11/19/16 11/19/16 07:25 07:25 WBC 7.9 RBC 2.68 L Hgb 8.5 L Hct 25.4 L MCV 95 MCH 31.9 MCHC 33.5 RDW 21.6 H Plt Count 182 Seg Neutrophils % 44.4 Lymphocytes % 33.0 Monocytes % 6.6 Eosinophils % 14.3 H Basophils % 1.7 Absolute Neutrophils 3.5 Absolute Lymphocytes 2.6 Absolute Monocytes 0.5 Absolute Eosinophils 1.1 H Absolute Basophils 0.1 Sodium 137.1 Potassium 4.6 Chloride 107 Carbon Dioxide 23 Anion Gap 7 BUN 55 H Creatinine 2.19 H Est GFR ( Amer) 27 L Est GFR (Non-Af Amer) 22 L Glucose 136 H Calcium 8.2 L Magnesium 1.4 L 11/15/16 11/15/16 11/16/16 20:23 20:23 02:44 Creatine Kinase 67 CK-MB (CK-2) 1.38 1.67 Troponin I 0.021 0.031 NT-Pro-B Natriuret Pep 11/16/16 11/16/16 11/16/16 02:44 08:25 08:25 Creatine Kinase 156 H 280 H CK-MB (CK-2) 2.60 Troponin I 0.030 NT-Pro-B Natriuret Pep 11/19/16 07:25 Creatine Kinase CK-MB (CK-2) Troponin I NT-Pro-B Natriuret Pep 2450 H Impressions: Chest X-Ray 11/15/16 15:52 IMPRESSION: Low lung volumes. Minimal basilar atelectasis. Assessment & Plan - Diagnosis (1) Sepsis Is this a current diagnosis for this admission?: YesPlan: Secondary to lower extremity cellulitis. 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 Anticipate transitioning to oral antibiotic in 1-2 days. (3) Acute renal failure Qualifiers: Acute renal failure type: unspecified Qualified Code(s): N17.9 - Acute kidney failure, unspecified Is this a current diagnosis for this admission?: YesPlan: Patient's baseline creatinine is around 1.4-1.5. Treat decompensated heart failure, sepsis/cellulitis. Metformin discontinued. (4) Hypothyroid Is this a current diagnosis for this admission?: YesPlan: Synthroid. (5) CHF (congestive heart failure) Qualifiers: Congestive heart failure type: unspecified congestive heart failure type Congestive heart failure chronicity: acute on chronic Qualified Code(s ): I50.9 - Heart failure, unspecified Is this a current diagnosis for this admission?: YesPlan: Acutely decompensated. Echocardiogram shows normal EF, grade 1/4 diastolic dysfunction, moderate aortic insufficiency. Continue IV Bumex for now. (6) Anemia of chronic disease Is this a current diagnosis for this admission?: YesPlan: Iron, B-12, folic acid levels normal recently. Likely secondary to chronic disease. (7) Diabetes Qualifiers: Diabetes mellitus type: type 2 Diabetes mellitus complication status: with unspecified complications Diabetes mellitus telephone clerk insulin use: without telephone clerk use Qualified Code(s): E11.8 - Type 2 diabetes mellitus with unspecified complications; Z79.4 - [facility] (current) use of insulin Is this a current diagnosis for this admission?: YesPlan: Metformin discontinued secondary to renal failure. Sliding scale insulin coverage. - Time Time Spent with patient: 35 or more minutes
[2016-11-19] MEDS: LORATADINE 10 MG TABLET PO SCH (12:25)
[2016-11-19] MEDS: LEVOTHYROXINE SODIUM 0.075 MG TABLET PO SCH (12:25)
[2016-11-19] MEDS: DOCUSATE SODIUM 100 MG CAPSULE PO SCH (12:25)
[2016-11-19] MEDS: OMEGA-3 ACID ETHYL ESTERS 1 GM CAPSULE PO SCH (12:25)
[2016-11-19] MEDS: LACTOBACILLUS ACIDOPHILUS 250 MG TAB PO SCH ×2 (12:25→18:39)
[2016-11-19] MEDS: NYSTATIN TOPICAL POWDER 15 GM TP SCH ×2 (12:26→18:40)
[2016-11-19] MEDS: ASPIRIN 81 MG TABLET, CHEWABLE PO SCH (12:26)
[2016-11-19] MEDS: BUMETANIDE INJ/PF 1 MG/4 ML SDV IV SCH ×2 (12:26→18:39)
[2016-11-19] MEDS: GABAPENTIN 300 MG CAPSULE PO SCH (18:40)
[2016-11-19] MEDS: ATORVASTATIN CALCIUM 10 MG TABLET PO SCH (21:25)
[2016-11-20 06:59] LABS: ABSOLUTE BASOPHILS # (AUTO) 0.1 10^3/uL (0.0-0.2); ABSOLUTE EOSINOPHILS # (AUTO) 1.1 10^3/uL (0.0-0.6); ABSOLUTE LYMPHOCYTES (AUTO) 1.9 10^3/uL (0.5-4.7); ABSOLUTE MONOCYTES (AUTO) 0.4 10^3/uL (0.1-1.4); ABSOLUTE NEUT (AUTO) 4.6 10^3/uL (1.7-8.2); BASOPHILS % (AUTO) 1.4 % (0-2); EOSINOPHILS % (AUTO) 13.6 % (0-6); HEMATOCRIT 27.9 % (36.0-47.0); HEMOGLOBIN 9.2 g/dL (12.0-15.5); HGB HCT DIFFERENCE -0.3; LYMPHOCYTES % (AUTO) 23.4 % (13-45); MEAN CORPUSCULAR HGB CONC 33.2 g/dL (32.0-36.0); MEAN CORPUSCULAR VOLUME 97 fl (80-97); MONOCYTES % (AUTO) 4.9 % (3-13); RED BLOOD COUNT 2.88 10^6/uL (3.72-5.28); RED CELL DISTRIBUTION WIDTH 22.5 % (11.5-14.0); SEGMENTED NEUTROPHILS % (AUTO) 56.7 % (42-78); WHITE BLOOD COUNT 8.1 10^3/uL (4.0-10.5)
[2016-11-20 07:22] LABS: ANION GAP 10 (5-19); BLOOD UREA NITROGEN 54 mg/dL (7-20); CALCIUM 8.3 mg/dL (8.4-10.2); CARBON DIOXIDE 20 mmol/L (22-30); CHLORIDE 107 mmol/L (98-107); CREATININE RESULT 2.06 mg/dL (0.52-1.25); GLUCOSE 179 mg/dL (75-110); POTASSIUM 4.7 mmol/L (3.6-5.0); SODIUM 137.3 mmol/L (137-145)
[2016-11-20] MEDS: LANSOPRAZOLE 15 MG TAB.RAP.DR PO SCH ×2 (07:29→17:02)
[2016-11-20] MEDS: VANCOMYCIN HCL 1,000 MG in DEXTROSE 5%-WATER 250 ML IV SCH (07:30)
[2016-11-20] MEDS: HEPARIN SOD (PORCINE) 5,000 UNIT/ML 1 ML SYRINGE SUBCUT SCH ×3 (07:42→23:04)
[2016-11-20] MEDS: OMEGA-3 ACID ETHYL ESTERS 1 GM CAPSULE PO SCH (08:55)
[2016-11-20] MEDS: ASPIRIN 81 MG TABLET, CHEWABLE PO SCH (08:55)
[2016-11-20] MEDS: LEVOTHYROXINE SODIUM 0.075 MG TABLET PO SCH (08:55)
[2016-11-20] MEDS: LORATADINE 10 MG TABLET PO SCH (08:55)
[2016-11-20] MEDS: DOCUSATE SODIUM 100 MG CAPSULE PO SCH (08:55)
[2016-11-20] MEDS: BUMETANIDE INJ/PF 1 MG/4 ML SDV IV SCH ×2 (08:56→17:02)
[2016-11-20] MEDS: LACTOBACILLUS ACIDOPHILUS 250 MG TAB PO SCH ×2 (08:56→17:02)
[2016-11-20] MEDS: NYSTATIN TOPICAL POWDER 15 GM TP SCH ×2 (09:08→17:02)
[2016-11-20] MEDS: GABAPENTIN 300 MG CAPSULE PO SCH (17:02)
--- NOTE | 2016-11-20 19:53 | PDOC PROGRESS REPORT ---
Subjective Progress Note for:: 11/20/16 Subjective:: The patient continues to complain of swollen legs. Her cellulitis has been slow to resolve. She remains profoundly weak. Physical Exam Vital Signs: Temp Pulse Resp BP Pulse Ox 97.9 F 85 18 116/27 L 98 11/20/16 15:28 11/20/16 15:28 11/20/16 15:28 11/20/16 15:28 11/20/16 15:28 Intake & Output 11/19/16 11/20/16 11/21/16 06:59 06:59 06:59 Intake Total 1470 1065 1300 Output Total 1999 1900 1000 Balance -530 -835 300 Weight 120.9 kg 121.5 kg Additional comments: GENERAL: No acute distress HEENT: Conjunctiva clear, nonicteric, moist mucous membranes, no JVD, midline trachea RESPIRATORY: Clear to auscultation bilaterally, no wheezes, no rhonchi CARDIAC: Regular rate and rhythm, no murmurs/gallops/rubs ABDOMEN: Soft, nondistended, nontender, positive bowel sounds, no rebound, no guarding EXTREMETIES: 1+ edema in bilateral lower extremities NEUROLOGIC: Alert, oriented to person/place/time, CN's grossly intact, no focal deficits SKIN: Erythema in bilateral lower extremities distal to the knees improved as compared to yesterday's exam, large superficial sloughing skin wound to right tibia PSYCH: Normal mood, normal affect Results Laboratory Results: 11/20/16 06:27 11/20/16 06:27 11/20/16 11/20/16 06:27 06:27 WBC 8.1 RBC 2.88 L Hgb 9.2 L Hct 27.9 L MCV 97 MCH 32.0 MCHC 33.2 RDW 22.5 H Plt Count 183 Seg Neutrophils % 56.7 Lymphocytes % 23.4 Monocytes % 4.9 Eosinophils % 13.6 H Basophils % 1.4 Absolute Neutrophils 4.6 Absolute Lymphocytes 1.9 Absolute Monocytes 0.4 Absolute Eosinophils 1.1 H Absolute Basophils 0.1 Sodium 137.3 Potassium 4.7 Chloride 107 Carbon Dioxide 20 L Anion Gap 10 BUN 54 H Creatinine 2.06 H Est GFR ( Amer) 29 L Est GFR (Non-Af Amer) 24 L Glucose 179 H Calcium 8.3 L 11/15/16 11/15/16 11/16/16 20:23 20:23 02:44 Creatine Kinase 67 CK-MB (CK-2) 1.38 1.67 Troponin I 0.021 0.031 NT-Pro-B Natriuret Pep 11/16/16 11/16/16 11/16/16 02:44 08:25 08:25 Creatine Kinase 156 H 280 H CK-MB (CK-2) 2.60 Troponin I 0.030 NT-Pro-B Natriuret Pep 11/19/16 07:25 Creatine Kinase CK-MB (CK-2) Troponin I NT-Pro-B Natriuret Pep 2450 H Impressions: Chest X-Ray 11/15/16 15:52 IMPRESSION: Low lung volumes. Minimal basilar atelectasis. Assessment & Plan - Diagnosis (1) Cellulitis of right anterior lower leg Is this a current diagnosis for this admission?: YesPlan: Continue current Rx. (2) Acute renal failure (ARF) Qualifiers: Acute renal failure type: unspecified Qualified Code(s): N17.9 - Acute kidney failure, unspecified Is this a current diagnosis for this admission?: YesPlan: We'll continue to treat her heart failure, sepsis/cellulitis. The metformin has been discontinued. Her baseline creatinine is around 1.4-1.5. (3) CHF (congestive heart failure) Qualifiers: Congestive heart failure type: unspecified congestive heart failure type Congestive heart failure chronicity: acute on chronic Qualified Code(s ): I50.9 - Heart failure, unspecified Is this a current diagnosis for this admission?: YesPlan: Continue current Rx. The edema is gradually resolving. She denies shortness of breath. (4) Diabetes Qualifiers: Diabetes mellitus type: type 2 Diabetes mellitus complication status: with unspecified complications Diabetes mellitus intermodal customer service insulin use: without intermodal customer service use Qualified Code(s): E11.8 - Type 2 diabetes mellitus with unspecified complications; Z79.4 - senior living (current) use of insulin Is this a current diagnosis for this admission?: YesPlan: Continue current Rx. (5) Anemia of chronic disease Is this a current diagnosis for this admission?: Yes (6) Hypothyroid Is this a current diagnosis for this admission?: Yes - Time Time Spent with patient: 15-24 minutes
[2016-11-20] MEDS: INSULIN LISPRO 100 UNIT/ML 3 ML VIAL SUBCUT PRN (23:03)
[2016-11-20] MEDS: ATORVASTATIN CALCIUM 10 MG TABLET PO SCH (23:04)
[2016-11-21] MEDS: LANSOPRAZOLE 15 MG TAB.RAP.DR PO SCH ×2 (06:47→16:38)
[2016-11-21] MEDS: HEPARIN SOD (PORCINE) 5,000 UNIT/ML 1 ML SYRINGE SUBCUT SCH ×3 (06:47→21:59)
[2016-11-21] MEDS: VANCOMYCIN HCL 1,000 MG in DEXTROSE 5%-WATER 250 ML IV SCH (06:47)
[2016-11-21 07:42] LABS: ANION GAP 9 (5-19); BLOOD UREA NITROGEN 57 mg/dL (7-20); CALCIUM 8.2 mg/dL (8.4-10.2); CARBON DIOXIDE 22 mmol/L (22-30); CHLORIDE 106 mmol/L (98-107); CREATININE RESULT 1.89 mg/dL (0.52-1.25); GLUCOSE 156 mg/dL (75-110); POTASSIUM 4.4 mmol/L (3.6-5.0); SODIUM 136.7 mmol/L (137-145)
[2016-11-21] MEDS: INSULIN LISPRO 100 UNIT/ML 3 ML VIAL SUBCUT PRN ×4 (08:59→22:39)
[2016-11-21] MEDS: LACTOBACILLUS ACIDOPHILUS 250 MG TAB PO SCH ×2 (09:01→17:52)
[2016-11-21] MEDS: DOCUSATE SODIUM 100 MG CAPSULE PO SCH (09:01)
[2016-11-21] MEDS: LORATADINE 10 MG TABLET PO SCH (09:02)
[2016-11-21] MEDS: OMEGA-3 ACID ETHYL ESTERS 1 GM CAPSULE PO SCH (09:02)
[2016-11-21] MEDS: LEVOTHYROXINE SODIUM 0.075 MG TABLET PO SCH (09:02)
[2016-11-21] MEDS: BUMETANIDE INJ/PF 1 MG/4 ML SDV IV SCH ×2 (09:03→17:49)
[2016-11-21] MEDS: ASPIRIN 81 MG TABLET, CHEWABLE PO SCH (09:05)
[2016-11-21] MEDS: NYSTATIN TOPICAL POWDER 15 GM TP SCH ×2 (09:06→17:51)
--- NOTE | 2016-11-21 16:52 | PDOC PROGRESS REPORT ---
Subjective Progress Note for:: 11/21/16 Subjective:: The patient continues to complain of swollen, painful legs. The cellulitis has been slow to resolve. She remains profoundly weak. Physical Exam Vital Signs: Temp Pulse Resp BP Pulse Ox 98.5 F 89 18 134/39 H 99 11/21/16 12:10 11/21/16 14:00 11/21/16 12:10 11/21/16 12:10 11/21/16 12:10 Intake & Output 11/20/16 11/21/16 11/22/16 06:59 06:59 06:59 Intake Total 1065 1780 459 Output Total 1900 1400 300 Balance -835 380 159 Weight 121.5 kg 124.1 kg Additional comments: GENERAL: No acute distress, generally weak, obese HEENT: Conjunctiva clear, nonicteric, moist mucous membranes, no JVD, midline trachea RESPIRATORY: Clear to auscultation bilaterally, no wheezes, no rhonchi CARDIAC: Regular rate and rhythm, no murmurs/gallops/rubs ABDOMEN: Soft, nondistended, nontender, positive bowel sounds, no rebound, no guarding EXTREMETIES: 1+ edema in bilateral lower extremities NEUROLOGIC: Alert, oriented to person/place/time, CN's grossly intact, no focal deficits SKIN: Erythema in bilateral lower extremities, R>L, distal to the knees, continues to steadily improve. Large superficial sloughing skin wound to right tibia PSYCH: Normal mood, normal affect Results Laboratory Results: 11/20/16 06:27 11/21/16 06:57 11/21/16 06:57 Sodium 136.7 L Potassium 4.4 Chloride 106 Carbon Dioxide 22 Anion Gap 9 BUN 57 H Creatinine 1.89 H Est GFR ( Amer) 32 L Est GFR (Non-Af Amer) 26 L Glucose 156 H Calcium 8.2 L 11/15/16 11/15/16 11/16/16 20:23 20:23 02:44 Creatine Kinase 67 CK-MB (CK-2) 1.38 1.67 Troponin I 0.021 0.031 NT-Pro-B Natriuret Pep 11/16/16 11/16/16 11/16/16 02:44 08:25 08:25 Creatine Kinase 156 H 280 H CK-MB (CK-2) 2.60 Troponin I 0.030 NT-Pro-B Natriuret Pep 11/19/16 11/21/16 07:25 06:57 Creatine Kinase CK-MB (CK-2) Troponin I NT-Pro-B Natriuret Pep 2450 H 2060 H Impressions: Chest X-Ray 11/15/16 15:52 IMPRESSION: Low lung volumes. Minimal basilar atelectasis. Assessment & Plan - Diagnosis (1) Cellulitis of right anterior lower leg Is this a current diagnosis for this admission?: YesPlan: Continue current Rx. (2) Acute renal failure (ARF) Qualifiers: Acute renal failure type: unspecified Qualified Code(s): N17.9 - Acute kidney failure, unspecified Is this a current diagnosis for this admission?: YesPlan: Continues to slowly gradually improve. Metformin has been discontinued. Heart failure treatment has been optimized. We will continue to monitor. Baseline creatinine is around 1.4-1.5. (3) CHF (congestive heart failure) Qualifiers: Congestive heart failure type: unspecified congestive heart failure type Congestive heart failure chronicity: acute on chronic Qualified Code(s ): I50.9 - Heart failure, unspecified Is this a current diagnosis for this admission?: YesPlan: Continue current Rx. The edema is slowly gradually resolving. She denies shortness of breath. (4) Diabetes Qualifiers: Diabetes mellitus type: type 2 Diabetes mellitus complication status: with unspecified complications Diabetes mellitus termite treater insulin use: without termite treater use Qualified Code(s): E11.8 - Type 2 diabetes mellitus with unspecified complications; Z79.4 - longterm (current) use of insulin Is this a current diagnosis for this admission?: YesPlan: Satisfactory control on current Rx. (5) Anemia of chronic disease Is this a current diagnosis for this admission?: YesPlan: Hemoglobin is stable. (6) Hypothyroid Is this a current diagnosis for this admission?: YesPlan: Continue Synthroid. - Time Time Spent with patient: 15-24 minutes
[2016-11-21] MEDS: GABAPENTIN 300 MG CAPSULE PO SCH (17:52)
[2016-11-21] MEDS: ATORVASTATIN CALCIUM 10 MG TABLET PO SCH (22:00)
[2016-11-21] MEDS: ACETAMINOPHEN 325 MG TABLET PO PRN (22:41)
[2016-11-22] MEDS: HEPARIN SOD (PORCINE) 5,000 UNIT/ML 1 ML SYRINGE SUBCUT SCH ×3 (05:48→21:22)
[2016-11-22] MEDS: LANSOPRAZOLE 15 MG TAB.RAP.DR PO SCH ×2 (05:49→17:03)
[2016-11-22] MEDS: VANCOMYCIN HCL 1,000 MG in DEXTROSE 5%-WATER 250 ML IV SCH (05:56)
[2016-11-22] MEDS: OMEGA-3 ACID ETHYL ESTERS 1 GM CAPSULE PO SCH (09:33)
[2016-11-22] MEDS: LEVOTHYROXINE SODIUM 0.075 MG TABLET PO SCH (09:33)
[2016-11-22] MEDS: LACTOBACILLUS ACIDOPHILUS 250 MG TAB PO SCH ×2 (09:33→17:02)
[2016-11-22] MEDS: LORATADINE 10 MG TABLET PO SCH (09:33)
[2016-11-22] MEDS: ASPIRIN 81 MG TABLET, CHEWABLE PO SCH (09:36)
[2016-11-22] MEDS: BUMETANIDE INJ/PF 1 MG/4 ML SDV IV SCH ×2 (09:36→17:04)
[2016-11-22] MEDS: NYSTATIN TOPICAL POWDER 15 GM TP SCH ×2 (09:39→17:07)
[2016-11-22] MEDS: DOCUSATE SODIUM 100 MG CAPSULE PO SCH (09:39)
[2016-11-22] MEDS: INSULIN LISPRO 100 UNIT/ML 3 ML VIAL SUBCUT PRN ×3 (12:15→21:22)
--- NOTE | 2016-11-22 16:10 | PDOC PROGRESS REPORT ---
Subjective Progress Note for:: 11/22/16 Subjective:: The patient continues to complain of swollen, painful legs. The cellulitis has been slow to resolve. She remains profoundly weak. Physical Exam Vital Signs: Temp Pulse Resp BP Pulse Ox 98.4 F 93 18 137/42 H 99 11/22/16 12:24 11/22/16 14:00 11/22/16 12:24 11/22/16 12:24 11/22/16 12:24 Intake & Output 11/21/16 11/22/16 11/23/16 06:59 06:59 06:59 Intake Total 1780 952 459 Output Total 1400 1250 500 Balance 380 -298 -41 Weight 124.1 kg 119.1 kg Additional comments: GENERAL: No acute distress, generally weak, obese HEENT: Conjunctiva clear, nonicteric, moist mucous membranes, no JVD, midline trachea RESPIRATORY: Clear to auscultation bilaterally, no wheezes, no rhonchi CARDIAC: Regular rate and rhythm, no murmurs/gallops/rubs ABDOMEN: Soft, nondistended, nontender, positive bowel sounds, no rebound, no guarding EXTREMETIES: 1+ edema in bilateral lower extremities NEUROLOGIC: Alert, oriented to person/place/time, CN's grossly intact, no focal deficits SKIN: Erythema in bilateral lower extremities, R>L, distal to the knees, continues to steadily improve. Large superficial sloughing skin wound to right tibia PSYCH: Normal mood, normal affect Results Laboratory Results: 11/20/16 06:27 11/21/16 06:57 11/15/16 11/15/16 11/16/16 20:23 20:23 02:44 Creatine Kinase 67 CK-MB (CK-2) 1.38 1.67 Troponin I 0.021 0.031 NT-Pro-B Natriuret Pep 11/16/16 11/16/16 11/16/16 02:44 08:25 08:25 Creatine Kinase 156 H 280 H CK-MB (CK-2) 2.60 Troponin I 0.030 NT-Pro-B Natriuret Pep 11/19/16 11/21/16 07:25 06:57 Creatine Kinase CK-MB (CK-2) Troponin I NT-Pro-B Natriuret Pep 2450 H 2060 H Impressions: Chest X-Ray 11/15/16 15:52 IMPRESSION: Low lung volumes. Minimal basilar atelectasis. Assessment & Plan - Diagnosis (1) Cellulitis of right anterior lower leg Is this a current diagnosis for this admission?: YesPlan: Continue current Rx. Very slow resolution. (2) Acute renal failure (ARF) Qualifiers: Acute renal failure type: unspecified Qualified Code(s): N17.9 - Acute kidney failure, unspecified Is this a current diagnosis for this admission?: YesPlan: Continues to slowly gradually improve. Metformin has been discontinued. Heart failure treatment has been optimized. We will continue to monitor. Baseline creatinine is around 1.4-1.5. (3) CHF (congestive heart failure) Qualifiers: Congestive heart failure type: unspecified congestive heart failure type Congestive heart failure chronicity: acute on chronic Qualified Code(s ): I50.9 - Heart failure, unspecified Is this a current diagnosis for this admission?: YesPlan: Continue current Rx. The edema is slowly gradually resolving. She denies shortness of breath. (4) Diabetes Qualifiers: Diabetes mellitus type: type 2 Diabetes mellitus complication status: with unspecified complications Diabetes mellitus fci insulin use: without fci use Qualified Code(s): E11.8 - Type 2 diabetes mellitus with unspecified complications; Z79.4 - terminal block assembler (current) use of insulin Is this a current diagnosis for this admission?: YesPlan: Satisfactory control on current Rx. (5) Anemia of chronic disease Is this a current diagnosis for this admission?: YesPlan: Hemoglobin is stable. (6) Hypothyroid Is this a current diagnosis for this admission?: YesPlan: Continue Synthroid. - Time Time Spent with patient: 15-24 minutes
[2016-11-22] MEDS: GABAPENTIN 300 MG CAPSULE PO SCH (17:02)
[2016-11-22] MEDS: ATORVASTATIN CALCIUM 10 MG TABLET PO SCH (21:22)
[2016-11-23] MEDS: HEPARIN SOD (PORCINE) 5,000 UNIT/ML 1 ML SYRINGE SUBCUT SCH ×2 (06:31→13:52)
[2016-11-23] MEDS: LANSOPRAZOLE 15 MG TAB.RAP.DR PO SCH ×2 (06:31→17:37)
[2016-11-23] MEDS: VANCOMYCIN HCL 1,000 MG in DEXTROSE 5%-WATER 250 ML IV SCH (06:31)
[2016-11-23 07:19] LABS: CREATININE RESULT 1.72 mg/dL (0.52-1.25)
[2016-11-23] MEDS: BUMETANIDE INJ/PF 1 MG/4 ML SDV IV SCH ×2 (09:18→17:37)
[2016-11-23] MEDS: OMEGA-3 ACID ETHYL ESTERS 1 GM CAPSULE PO SCH (09:19)
[2016-11-23] MEDS: DOCUSATE SODIUM 100 MG CAPSULE PO SCH (09:19)
[2016-11-23] MEDS: ASPIRIN 81 MG TABLET, CHEWABLE PO SCH (09:19)
[2016-11-23] MEDS: LORATADINE 10 MG TABLET PO SCH (09:19)
[2016-11-23] MEDS: LEVOTHYROXINE SODIUM 0.075 MG TABLET PO SCH (09:19)
[2016-11-23] MEDS: LACTOBACILLUS ACIDOPHILUS 250 MG TAB PO SCH ×2 (09:19→17:37)
[2016-11-23] MEDS: INSULIN LISPRO 100 UNIT/ML 3 ML VIAL SUBCUT PRN ×2 (11:39→17:37)
--- NOTE | 2016-11-23 13:46 | PDOC DISCHARGE SUMMARY ---
General - Admit/Disc Date/PCP Admission Date/Primary Care Provider: 11/15/16 19:29 Discharge Date: 11/23/16 - Discharge Diagnosis (1) Cellulitis of right anterior lower leg Is this a current diagnosis for this admission?: YesSummary: This 71-year-old woman was admitted on 11/15/2016 with 3+ edema of the trunk and lower extremities. The etiology was felt to be multifactorial with a history of congestive heart failure of unknown ejection fraction, chronic venous stasis, and hypoproteinemia. She was also noted to have an acute kidney injury on admission. Her admission medications included metformin and hydrochlorothiazide which were held. There was an area of cellulitis on the right lower extremity which was treated with intravenous antibiotics and local wound care. Her diuretic medications were adjusted. The edema and the cellulitis were very slow to improve but they did improve. At the time of discharge the edema is only 1+ in the area of cellulitis is nearly resolved. (2) Acute renal failure (ARF) Is this a current diagnosis for this admission?: YesSummary: The patient's initial GFR was 18. His medication adjustments it gradually came up to a GFR of 29. This is consistent with stage IV chronic kidney disease and is likely an important contributor to her generalized edema. (3) CHF (congestive heart failure) Is this a current diagnosis for this admission?: YesSummary: CHF was felt to be compensated. (4) Diabetes Is this a current diagnosis for this admission?: YesSummary: Diabetes was kept under satisfactory control on current medications. An effort could be made to resume metformin, closely monitoring her renal function studies. (5) Anemia of chronic disease Is this a current diagnosis for this admission?: YesSummary: Hemoglobin remained stable throughout the hospitalization. (6) Hypothyroid Is this a current diagnosis for this admission?: Yes - Additional Information Resuscitation Status: Full Code Discharge Diet: Diabetic Discharge Activity: Activity As Tolerated, Balance Activity w/Rest, Keep Legs Elevated, Weigh Daily Home Medications: Acetaminophen [Tylenol] 650 mg PO Q6HP PRN 11/16/16 Allopurinol [Zyloprim 300 mg Tablet] 300 mg PO DAILY 11/16/16 Aspirin [Aspirin 81 mg Chewable Tablet] 81 mg PO DAILY 11/16/16 Atorvastatin Calcium [Lipitor 10 mg Tablet] 10 mg PO DAILY 11/16/16 Fexofenadine HCl [Cynthia Allergy] 180 mg PO DAILY 11/16/16 Furosemide [Lasix] 40 mg PO BID 11/16/16 Insulin Glargine,Hum.rec.anlog [Lantus] 15 units SQ QHS 11/16/16 Levothyroxine Sodium [Synthroid 0.075 mg Tablet] 0.075 mcg PO QAM 11/16/16 [place]-3 Acid Ethyl Esters [Lovaza 1 gm Capsule] 1 gm PO DAILY 11/16/16 Omeprazole 20 mg PO DAILY 11/16/16 Saxagliptin HCl/Metformin HCl [Kombiglyze Xr 2.5-1,000 mg Tab] 1 tab PO BID Spironolactone [Aldactone 100 mg Tablet] 100 mg PO DAILY 11/16/16 Tamsulosin HCl [Flomax 0.4 mg Cap.sr] 0.4 mg PO DAILY 11/16/16 Docusate Sodium [Colace 100 mg Capsule] 100 mg PO DAILY #0 capsule 11/23/16 Gabapentin [Neurontin 300 mg Capsule] 300 mg PO QPM #0 capsule 11/23/16 Insulin Lispro [Humalog Insulin (Lispro) 100 unit/mL] 0 - 12 unit SUBCUT ACHSP PRN #0 unit 11/23/16 History of Present Illness History of Present Illness: NEHA RUSSELL is a 71 year old female with a past medical history of congestive heart failure with unknown ejection fraction, insulin-dependent diabetes, hypothyroidism, osteoarthritis, obesity, MRSA positive surveillance and lower extremity venous stasis. Who transitioned from rehabilitation to home yesterday and noted by family to have extensive truncal edema and lower extremity edema with weeping brought to the emergency room for evaluation found to have +3 edema with a 2 x 2 centimeter open ulcer on the medial aspect of the right lower leg with hypotension tachycardia and leukocytosis. Also noted to have acute kidney injury with hydrochlorothiazide and metformin on NOV. Patient is a poor historian and unable to provide significant history. Given her history of MRSA surveillance positive she started on vancomycin and referred to the hospitalist for admission Hospital Course Hospital Course: The patient was admitted with 3+ generalized edema. It was felt to be multifactorial, as above. Medications were adjusted. The patient's edema and right lower extremity cellulitis slowly but steadily improved. The patient was also profoundly weak. It was not felt that a home discharge was possible. She will be transferred to [facility] facility to continue her general care in to participate in rehabilitation therapies. Physical Exam Vital Signs: Temp Pulse Resp BP Pulse Ox 98.2 F 93 16 125/47 L 99 11/23/16 12:00 11/23/16 12:00 11/23/16 12:00 11/23/16 12:00 11/23/16 12:00 Intake & Output 11/22/16 11/23/16 11/24/16 06:59 06:59 06:59 Intake Total 952 1484 Output Total 1250 1870 Balance -298 -386 Weight 119.1 kg 120.5 kg Additional comments: GENERAL: No acute distress, generally weak, obese HEENT: Conjunctiva clear, nonicteric, moist mucous membranes, no JVD, midline trachea RESPIRATORY: Clear to auscultation bilaterally, no wheezes, no rhonchi CARDIAC: Regular rate and rhythm, no murmurs/gallops/rubs ABDOMEN: Soft, nondistended, nontender, positive bowel sounds, no rebound, no guarding EXTREMETIES: 1+ edema in bilateral lower extremities NEUROLOGIC: Alert, oriented to person/place/time, CN's grossly intact, no focal deficits SKIN: mild erythema in bilateral lower extremities, R>L, distal to the knees, continues to steadily improve. Large superficial sloughing skin wound to right tibia is generally improved PSYCH: Normal mood, normal affect Results Laboratory Results: 11/20/16 06:27 11/23/16 05:50 11/23/16 05:50 Creatinine 1.72 H Est GFR ( Amer) 35 L Est GFR (Non-Af Amer) 29 L 11/15/16 11/15/16 11/16/16 20:23 20:23 02:44 Creatine Kinase 67 CK-MB (CK-2) 1.38 1.67 Troponin I 0.021 0.031 NT-Pro-B Natriuret Pep 11/16/16 11/16/16 11/16/16 02:44 08:25 08:25 Creatine Kinase 156 H 280 H CK-MB (CK-2) 2.60 Troponin I 0.030 NT-Pro-B Natriuret Pep 11/19/16 11/21/16 07:25 06:57 Creatine Kinase CK-MB (CK-2) Troponin I NT-Pro-B Natriuret Pep 2450 H 2060 H Impressions: Chest X-Ray 11/15/16 15:52 IMPRESSION: Low lung volumes. Minimal basilar atelectasis. Qualifiers PATEINT BEING DISCHARGED WITH ANY OF THE FOLLOWING DIAGNOSIS?: Heart Failure
[2016-11-23] MEDS: GABAPENTIN 300 MG CAPSULE PO SCH (17:37)
[2016-11-23 17:41] VITALS: BP 142/44
[2016-11-25] MEDS ORDERED: VANCOMYCIN HCL 1,000 MG in DEXTROSE 5%-WATER 250 ML IV SCH (06:00)
== END 2016-11-23 21:00 | DRG 871 ==
LOC: ER 15:22 → EH 19:29 → 3S 11-16 08:36 → 5 11-22 19:06
PROVIDERS: ADMIT Internal Medicine; ATTEND Internal Medicine
DX: A41.9 Sepsis, unspecified organism (principal); I50.33 Acute on chronic diastolic (congestive) heart failure; I13.0 Hypertensive heart and chronic kidney disease with heart failure and stage 1 through stage 4 chronic kidney disease, or unspecified chronic kidney disease; N17.9 Acute kidney failure, unspecified; N18.4 Chronic kidney disease, stage 4 (severe); L03.115 Cellulitis of right lower limb; Z68.41 Body mass index [BMI] 40.0-44.9, adult; E11.22 Type 2 diabetes mellitus with diabetic chronic kidney disease; I87.8 Other specified disorders of veins; D63.1 Anemia in chronic kidney disease; E03.9 Hypothyroidism, unspecified; M19.90 Unspecified osteoarthritis, unspecified site; J45.909 Unspecified asthma, uncomplicated; J44.9 Chronic obstructive pulmonary disease, unspecified; E78.5 Hyperlipidemia, unspecified; R65.20 Severe sepsis without septic shock; E86.0 Dehydration; E66.9 Obesity, unspecified; Z86.14 Personal history of Methicillin resistant Staphylococcus aureus infection; Z79.82 Long term (current) use of aspirin; Z79.4 Long term (current) use of insulin; Z79.899 Other long term (current) drug therapy; Z88.2 Allergy status to sulfonamides; Z88.1 Allergy status to other antibiotic agents; Z88.6 Allergy status to analgesic agent; Z82.49 Family history of ischemic heart disease and other diseases of the circulatory system
CPT/HCPCS: 36415; 71010; 80048; 80053; 80076; 80202; 81001; 82140; 82533; 82550; 82553; 82565; 82962; 83605; 83735; 83880; 84134; 84439; 84443; 84484; 85025; 85610; 85730; 87040; 87086; 93005; 93010; 93306; 93970; 96365; 96375; 99285; G8978-GP; G8979-GP; J1644; J1815; J1940; J3370; J3490; J7060; P9047

== ENCOUNTER 2016-12-02 10:54 | Emergency (ER) | payer MEDICARE, OTHER ==
[2016-12-02 11:56] LABS: ABSOLUTE BASOPHILS # (AUTO) 0.1 10^3/uL (0.0-0.2); ABSOLUTE EOSINOPHILS # (AUTO) 1.6 10^3/uL (0.0-0.6); ABSOLUTE LYMPHOCYTES (AUTO) 2.4 10^3/uL (0.5-4.7); ABSOLUTE MONOCYTES (AUTO) 0.7 10^3/uL (0.1-1.4); ABSOLUTE NEUT (AUTO) 7.3 10^3/uL (1.7-8.2); BASOPHILS % (AUTO) 0.9 % (0-2); HEMATOCRIT 29.2 % (36.0-47.0); HEMOGLOBIN 9.5 g/dL (12.0-15.5); HGB HCT DIFFERENCE -0.7; LYMPHOCYTES % (AUTO) 19.6 % (13-45); MEAN CORPUSCULAR HEMOGLOBIN 32.2 pg (27.0-33.4); MEAN CORPUSCULAR HGB CONC 32.6 g/dL (32.0-36.0); MEAN CORPUSCULAR VOLUME 99 fl (80-97); RED BLOOD COUNT 2.96 10^6/uL (3.72-5.28); RED CELL DISTRIBUTION WIDTH 21.1 % (11.5-14.0); SEGMENTED NEUTROPHILS % (AUTO) 60.5 % (42-78)
[2016-12-02 12:29] LABS: ANISOCYTOSIS 2+; OVALOCYTES 2+; POIKILOCYTOSIS 2+; POLYCHROMASIA 1+
[2016-12-02 12:30] LABS: HYPOCHROMASIA SLIGHT; PLATELET CLUMPS PRESENT; SCHISTOCYTES SLIGHT; STOMATOCYTES SLIGHT
[2016-12-02 13:18] LABS: ALANINE AMINOTRANSFERASE 28 U/L (9-52); ALBUMIN 2.5 g/dL (3.5-5.0); ALKALINE PHOSPHATASE 170 U/L (38-126); ANION GAP 11 (5-19); ASPARTATE AMINO TRANSFERASE 24 U/L (14-36); BILIRUBIN,TOTAL 0.9 mg/dL (0.2-1.3); BLOOD UREA NITROGEN 76 mg/dL (7-20); CALCIUM 8.5 mg/dL (8.4-10.2); CARBON DIOXIDE 21 mmol/L (22-30); CHLORIDE 102 mmol/L (98-107); CREATININE RESULT 2.21 mg/dL (0.52-1.25); GLUCOSE 133 mg/dL (75-110); LIPASE 119.1 U/L (23-300); POTASSIUM 5.1 mmol/L (3.6-5.0); SODIUM 133.6 mmol/L (137-145); TOTAL PROTEIN 5.6 g/dL (6.3-8.2)
[2016-12-02 13:36] LABS: APPEARANCE,URINE CLOUDY; BILIRUBIN,URINE NEGATIVE (NEGATIVE); GLUCOSE, URINE NEGATIVE (NEGATIVE); KETONES,URINE NEGATIVE (NEGATIVE); LEUKOCYTE ESTERASE,URINE LARGE (NEGATIVE); NITRITE,URINE NEGATIVE (NEGATIVE); PROTEIN,URINE 30 mg/dL (NEGATIVE); URINE SPECIFIC GRAVITY 1.012; UROBILINOGEN,URINE NEGATIVE mg/dL (<2.0)
[2016-12-02 13:43] LABS: PROTHROMBIN TIME 14.7 SEC (11.4-15.4)
--- NOTE | 2016-12-02 14:47 | ER Document Report ---
ED General - General TRAVEL OUTSIDE OF THE [place] IN LAST 30 DAYS: No - HPI Patient complains to provider of: abdominal distention <JAVIER VILLATORO - Last Filed: 12/02/16 15:49> <YANET CORREA - Last Filed: 12/03/16 03:55> - General Chief Complaint: Abdominal Distention Stated Complaint: ABDOMINAL PAIN - HPI Notes: Patient coming in from local [facility] for a one-week history of abdominal pain and distention. According to [facility] notes patient had a bowel movement day prior to arrival no fever 7 documented patient apparently does have a history of dementia however because of continued abdominal pain was referred to the ER for further evaluation. Patient does have a history of cirrhosis and anasarca has had multiple paracentesis performed at this facility in the past. Upon evaluation patient is resting come please arousable information does have obvious ascites and abdominal distention patient states that complaints at this time however she is confused which was reported to be baseline for the patient (JAVIER VILLATORO) - Related Data Allergies/Adverse Reactions: amoxicillin Allergy (Verified 12/02/16 11:41) ampicillin Allergy (Verified 12/02/16 11:41) cefepime Allergy (Verified 12/02/16 11:41) morphine Allergy (Verified 12/02/16 11:41) Sulfa (Sulfonamide Antibiotics) Allergy (Verified 12/02/16 11:41) rash Past Medical History - Social History Smoking Status: Never Smoker Family History: None, Hypertension - Past Medical History Cardiac Medical History: Reports: Hx Congestive Heart Failure, Hx Hypercholesterolemia, Hx Hypertension Denies: Hx DVT, Hx Heart Attack, Hx Pulmonary Embolism Pulmonary Medical History: Reports: Hx Asthma, Hx COPD Neurological Medical History: Denies: Hx Seizures Endocrine Medical History: Reports: Hx Diabetes Mellitus Type 2, Hx Hypothyroidism. Denies: Hx Diabetes Mellitus Type 1, Hx Hyperthyroidism Renal/ Medical History: Denies: Hx Peritoneal Dialysis GI Medical History: Denies: Hx Cirrhosis, Hx Gastroesophageal Reflux Disease, Hx Hepatitis Musculoskeltal Medical History: Reports Hx Arthritis Psychiatric Medical History: Denies: Hx Depression Infectious Medical History: Denies: Hx C-Diff, Hx Hepatitis, Hx MRSA Past Surgical History: Reports: Hx Herniorrhaphy - Umbilical, Hx Orthopedic Surgery <JAVIER VILLATORO - Last Filed: 12/02/16 15:49> Review of Systems - Review of Systems -: Yes ROS unobtainable due to patient's medical condition - History dementia poor historian <JAVIER VILLATORO - Last Filed: 12/02/16 15:49> Physical Exam - Vital signs Interpretation: Normal - General General appearance: Appears well, Alert - HEENT Head: Normocephalic, Atraumatic Eyes: Normal Pupils: PERRL - Respiratory Respiratory status: No respiratory distress Chest status: Nontender Breath sounds: Normal Chest palpation: Normal - Cardiovascular Rhythm: Regular Heart sounds: Normal auscultation Murmur: No - Abdominal Inspection: Normal Distension: Distended, Tympanitic, Fluid wave Bowel sounds: Normal Tenderness: Nontender Organomegaly: No organomegaly - Genitourinary External exam: Normal - Indwelling Goode - Back Back: Normal, Nontender - Extremities General upper extremity: Normal inspection, Nontender, Normal color, Normal temperature General lower extremity: Normal inspection, Nontender, Edema - 2+ bilateral. No : Normal color - Patient does have erythema to the anterior right gauthier. Patient has been seen for saline was at this area in the past. Today the area although red does not feel warm to touch compared to the other side., Ney's sign - Neurological Neuro grossly intact: Yes Cognition: Normal Orientation: AAOx4 [place] Coma Scale Eye Opening: Spontaneous [place] Coma Scale Verbal: Oriented [place] Coma Scale Motor: Obeys Commands [place] Coma Scale Total: 15 Speech: Normal Motor strength normal: LUE, RUE, LLE, RLE Sensory: Normal - Psychological Associated symptoms: Normal affect, Normal mood - Skin Skin Temperature: Warm Skin Moisture: Dry Skin Color: Normal <JAVIER VILLATORO - Last Filed: 12/02/16 15:49> <YANET CORREA - Last Filed: 12/03/16 03:55> - Vital signs Vitals: Temp Pulse Resp BP Pulse Ox 97.8 F 103 H 19 125/40 L 98 12/02/16 11:05 12/02/16 11:05 12/02/16 11:05 12/02/16 11:05 12/02/16 11:05 - Abdominal Notes: Patient with skin irritation in the groin region and the wound is covered status signs of any wound infection at this time. (JAVIER VILLATORO) Course - Laboratory Result Diagrams: 12/02/16 11:25 12/02/16 12:45 <JAVIER VILLATORO - Last Filed: 12/02/16 15:49> - Laboratory Result Diagrams: 12/02/16 11:25 12/02/16 12:45 <YANET CORREA - Last Filed: 12/03/16 03:55> - Re-evaluation Re-evalutation: 12/02/16 15:38 Patient does have slight white count 12. Patient has no documented fever and otherwise has been hemodynamically stable here in ER. More likely patient's complaint of abdominal pain is due to distention we will send the patient for a paracentesis. Paracentesis will be evaluated for possible peritonitis. I think this is highly unlikely as that the patient does not seem to be symptomatic at this time. Patient's urinalysis does show leukocyte esterase with WBCs and trace bacteria. We'll send this for culture as that the patient is afebrile this time more likely this is due to colonization or due to the chronic indwelling Goode. Do not see a need for antibiotics at this time. Patient paracentesis fluid will be followed up by Dr. Roche (JAVIER VILLATORO) 12/03/16 03:53 This patient was not signed out to me and was not provided any information sign out. The nurse caring for this patient notified me that the patient has had the results of the paracentesis available for the past 12 hours. She is requesting a disposition for this patient. Review of the prior physician's notes indicates the patient is here for abdominal distention and discomfort and has required therapeutic paracentesis in the past. That paracentesis was performed and a sample was sent for analysis which does not demonstrate any findings consistent with spontaneous bacterial peritonitis. The patient's vitals have otherwise remained within normal limits. Patient is overall nontoxic in appearance on evaluation. No focal abdominal tenderness. Her urinalysis does show signs consistent with an infection although this was pulled off of a indwelling Goode line in properly as the fluid was not changed out prior to the urinalysis being collected. A culture has been sent and I agree with Dr. Villatoro that antibiotics should not be initiated at this time. At this time the patient will be discharged back to the nursing facility. ( YANET CORREA) - Vital Signs Vital signs: Temp Pulse Resp BP Pulse Ox 97.8 F 103 H 17 100/37 L 98 12/02/16 11:05 12/02/16 11:05 12/02/16 23:01 12/02/16 23:01 12/02/16 23:01 - Laboratory Laboratory results interpreted by me: 12/02/16 12/02/16 12/02/16 11:25 12:45 13:08 WBC 12.0 H RBC 2.96 L Hgb 9.5 L Hct 29.2 L MCV 99 H RDW 21.1 H Eosinophils % 13.0 H Absolute Eosinophils 1.6 H Sodium 133.6 L Potassium 5.1 H Carbon Dioxide 21 L BUN 76 H Creatinine 2.21 H Est GFR ( Amer) 27 L Est GFR (Non-Af Amer) 22 L Glucose 133 H Alkaline Phosphatase 170 H Total Protein 5.6 L Albumin 2.5 L Urine Protein 30 H Urine Blood SMALL H Ur Leukocyte Esterase LARGE H Discharge <JAVIER VILLATORO - Last Filed: 12/02/16 15:49> <YANET CORREA - Last Filed: 12/03/16 03:55> - Discharge Clinical Impression: Hypoalbuminemia Abdominal wall skin ulcer Qualifiers: Non-pressure ulcer stage: unspecified non-pressure ulcer stage Qualified Code(s ): L98.499 - Non-pressure chronic ulcer of skin of other sites with unspecified severity Cirrhosis Qualifiers: Hepatic cirrhosis type: unspecified hepatic cirrhosis Ascites presence: with ascites Qualified Code(s): K74.60 - Unspecified cirrhosis of liver Chronic renal insufficiency Qualifiers: Chronic kidney disease stage: unspecified stage Qualified Code(s): N18.9 - Chronic kidney disease, unspecified Condition: Fair Disposition: HOME-SNF (ED ONLY) Additional Instructions: Patient was seen and evaluated today for her abdominal pain underwent paracentesis. At this time there is no signs of any infection. Patient's urinalysis does show increased white cell count and bacteria we will send this for culture as that the patient does not have a fever at this time we held off any antibiotics treatment. Dr. Spencer or covering physician at the nursing facility should follow-up with his culture is or in the next 24-48 hours. Otherwise patient's laboratory values showed no other critical etiologies continue medications as prescribed
[2016-12-02] MEDS: ALBUMIN HUMAN 50 ML IV SCH ×2 (15:15→17:10)
[2016-12-02 17:45] LABS: FLUID TYPE PERITONEAL
[2016-12-02 17:46] LABS: FLUID APPEARANCE CLEAR; FLUID RBC DILUENT USED NONE USED; FLUID RBC DILUTION FACTOR 1; FLUID RBC SIDE 1 86; FLUID RBC SIDE 2 84; TOTAL RBC SQUARES COUNTED FLD 225
[2016-12-03 08:13] VITALS: BP 135/32
== END 2016-12-03 08:15 ==
LOC: ER 10:54
DX: E88.09 Other disorders of plasma-protein metabolism, not elsewhere classified (principal); L98.499 Non-pressure chronic ulcer of skin of other sites with unspecified severity; K74.60 Unspecified cirrhosis of liver; N18.9 Chronic kidney disease, unspecified; R10.9 Unspecified abdominal pain; R14.0 Abdominal distension (gaseous); I50.9 Heart failure, unspecified; E78.00 Pure hypercholesterolemia, unspecified; I11.0 Hypertensive heart disease with heart failure; J45.909 Unspecified asthma, uncomplicated; J44.9 Chronic obstructive pulmonary disease, unspecified; E11.9 Type 2 diabetes mellitus without complications; E03.9 Hypothyroidism, unspecified; Z88.6 Allergy status to analgesic agent; Z88.0 Allergy status to penicillin; F03.90 Unspecified dementia, unspecified severity, without behavioral disturbance, psychotic disturbance, mood disturbance, and anxiety
CPT/HCPCS: 99285; 96365; 96366; 36415; 87086; 87205; 87070; 83690; 85025; 85610; 85730; 89050; 87075; 87088; 80053; 81001; 87186; 49083; P9047

== ENCOUNTER 2016-12-13 11:47 | Emergency (ER) | payer MEDICARE, OTHER ==
--- NOTE | 2016-12-13 12:59 | ER Document Report ---
ED GI/ - General Time seen by provider: 13:24 Mode of Arrival: Medic Information source: Patient TRAVEL OUTSIDE OF THE [place] IN LAST 30 DAYS: No - HPI Patient complains to provider of: Abdominal pain, Other - Ascites Onset: Other - Chronic Timing/Duration: Gradual Quality of pain: Pressure, Sharp Severity at maximum: Severe Severity in ED: Severe Pain Level: 5 Location: Other - General abdomen Vaginal bleeding (Compared to normal period): None Associated symptoms: Other - Ascites, vaginitis, Exacerbated by: Movement Relieved by: Denies Similar symptoms previously: Yes Recently seen / treated by doctor: Yes <NATHANIEL KLINE - Last Filed: 12/13/16 15:26> <IFRAH WU - Last Filed: 12/13/16 21:01> - General Chief Complaint: Abdominal Distention Stated Complaint: ABDOMINAL PAIN Notes: 71-year-old female presents to ED from [facility] via EMS for abdominal pain. She states she has a history of renal failure and liver failure due to her diabetes and she has had multiple paracentesis last one being on 12/02/2016. She states she needs to have another one as she has too much fluid on her abdomen and pelvis for her pain is. She states the last time she was drained that was 10 L removed. States the fluid is clear back faster than it used to. ( NATHANIEL KLINE) - Related Data Allergies/Adverse Reactions: amoxicillin Allergy (Verified 12/13/16 12:23) ampicillin Allergy (Verified 12/13/16 12:23) cefepime Allergy (Verified 12/13/16 12:23) morphine Allergy (Verified 12/13/16 12:23) Sulfa (Sulfonamide Antibiotics) Allergy (Verified 12/13/16 12:23) rash Past Medical History - General Information source: Patient - Social History Smoking Status: Never Smoker Cigarette use (# per day): No Chew tobacco use (# tins/day): No Smoking Education Provided: No Frequency of alcohol use: None Drug Abuse: None Lives with: [facility] for the last 3 weeks Family History: None, Hypertension - Past Medical History Cardiac Medical History: Reports: Hx Congestive Heart Failure, Hx Hypercholesterolemia, Hx Hypertension Pulmonary Medical History: Reports: Hx Asthma, Hx COPD EENT Medical History: Reports: None Neurological Medical History: Reports: None Endocrine Medical History: Reports: Hx Diabetes Mellitus Type 2, Hx Hypothyroidism Renal/ Medical History: Reports: Hx End Stage Renal Disease - Patient states she has renal failure from her diabetes Malignancy Medical History: Reports: None GI Medical History: Reports: Hx Liver Failure, Hx Endoscopy, Other - Ascites Musculoskeltal Medical History: Reports Hx Arthritis, Reports Hx Musculoskeletal Trauma Skin Medical History: Reports Hx Cellulitis Psychiatric Medical History: Reports: None Traumatic Medical History: Reports: Hx Fractures - Right knee Infectious Medical History: Reports: None Past Surgical History: Reports: Hx Orthopedic Surgery - Right knee, Hx Umbilical Hernia - Immunizations Immunizations up to date: Yes <NATHANIEL KLINE - Last Filed: 12/13/16 15:26> Review of Systems - Review of Systems Constitutional: No symptoms reported EENT: No symptoms reported Cardiovascular: No symptoms reported Respiratory: No symptoms reported Gastrointestinal: Abdomen distended, Abdominal pain, Other - Ascites history of multiple paracentesis Genitourinary: No symptoms reported Female Genitourinary: No symptoms reported Musculoskeletal: No symptoms reported Skin: No symptoms reported Hematologic/Lymphatic: No symptoms reported Neurological/Psychological: No symptoms reported -: Yes All other systems reviewed and negative <NATHANIEL KLINE - Last Filed: 12/13/16 15:26> Physical Exam - Vital signs Interpretation: Normal - General General appearance: Appears well, Alert - HEENT Head: Normocephalic, Atraumatic Eyes: Normal Pupils: PERRL - Respiratory Respiratory status: No respiratory distress Chest status: Nontender Breath sounds: Normal Chest palpation: Normal - Cardiovascular Rhythm: Regular Heart sounds: Normal auscultation Murmur: No - Abdominal Inspection: Other - Cellulitis to the lower right abdomen, ascites Distension: Distended, Tympanitic, Fluid wave Bowel sounds: Hypoactive Tenderness: Tender Organomegaly: Other - Unable to assess the size of the liver and spleen due to the amount of ascites - Back Back: Normal, Nontender - Extremities General upper extremity: Normal inspection, Nontender, Normal color, Normal ROM , Normal temperature General lower extremity: Normal inspection, Nontender, Normal color, Normal ROM , Normal temperature, Normal weight bearing. No: Ney's sign - Neurological Neuro grossly intact: Yes Cognition: Normal Orientation: AAOx4 [place] Coma Scale Eye Opening: Spontaneous [place] Coma Scale Verbal: Oriented [place] Coma Scale Motor: Obeys Commands [place] Coma Scale Total: 15 Speech: Normal Motor strength normal: LUE, RUE, LLE, RLE Sensory: Normal - Psychological Associated symptoms: Normal affect, Normal mood - Skin Skin Temperature: Warm Skin Moisture: Dry Skin Color: Normal Location of irregularity: Other - Diaper rash <NATHANIEL KLINE - Last Filed: 12/13/16 15:26> Course - Laboratory Result Diagrams: 12/13/16 13:03 12/13/16 14:05 - EKG Interpretation by Me When compared to previous EKG there are: No significant change <NATHANIEL KLINE - Last Filed: 12/13/16 15:26> - Laboratory Result Diagrams: 12/13/16 13:03 12/13/16 17:45 - Diagnostic Test Radiology reviewed: Image reviewed, Reports reviewed - Chest x-ray shows right pleural effusion. Appropriate placement for central line. No pneumothorax. - EKG Interpretation by Me Rate: Tachycardia Rhythm: NSR - Sinus tachycardia with a ventricular rate of 108, no acute T wave elevations, she will RS interval good. <IFRAH WU - Last Filed: 12/13/16 21:01> - Re-evaluation Re-evalutation: 12/13/16 15:[address] Bojorquez multiple times due to the patient's conditions and lab values. Potassium is 6.6 she has been given D50, 100 mg with 10 units of regular insulin IV. She's been given gluconate 2000 mg IV with 3 albuterol treatments. I have consult to light and to transfer the patient due to her increasing renal failure and hypokalemia and ascites. (NATHANIEL KLINE) 12/13/16 19:01 This is a 71-year-old female with multiple medical problems including cirrhosis (abdominal ascites status post multiple paracenteses in the past), congestive heart failure, chronic kidney disease (creatinine on November 23, 2016 was 1.7) . Patient was brought to the emergency room because of increased abdominal distention and pain. On physical exam, she does have evidence of fluid overload with a right pleural effusion (new), evidence of abdominal ascites, and peripheral edema. Labs reveal that the patient is hyperkalemic (6.6). EKG shows sinus tachycardia with a heart rate of 108, left axis deviation, normal QRS intervals, normal T waves. Patient was treated with calcium gluconate, insulin and D50, albuterol nebulizers. Due to her anasarca, she does have poor peripheral access, right internal jugular vein catheter was placed (triple-lumen ). Patient's white count was elevated (16.7). A diagnostic paracentesis was performed to rule out SBP: The fluid looks straw-colored, but not infected. The fluid was sent off for study. The patient does have a chronic urinary catheter. The urine does show pyuria and bacteriuria. The patient was started on IV antibiotics. The case was discussed with the hospitalist at the hospital and they have asked me to try and transfer the patient for lack of renal and GI services. The patient's problem list are as follows: 1. Abdominal pain with abdominal distention. She does have a history of reported cirrhosis with ascites status post paracentesis in the past. A diagnostic paracentesis was performed and the fluid looks straw-colored and did not appear to be infected. However, the patient did have a leukocytosis (16.7) and an elevated lactate of 2.5. Therefore IV levofloxacin was started. Patient does have pyuria and bacteriuria on urine analysis. Note: The paracentesis was a diagnostic paracentesis. I have avoided a large volume tap to avoid hepatorenal syndrome. 2. Acute renal failure with hyperkalemia: Patient's BUN/creatinine today is 79 over 3. Her creatinine in October was 1.7. The potassium is 6.6. The patient has received calcium gluconate, D50, insulin and albuterol inhalers. She is receiving Kayexalate. We do not have nephrology services at this hospital. The hospitalist services refused admission because of this. I have spoken to Dr. Snell at [facility] who is willing to accept the patient. I have received the patient's medicine list from the [facility] where she currently resides. One of the patient's medicines listed is spironolactone: The plan will be to discontinue this. 3. Anasarca: Patient has evidence of pleural effusion on the right on chest x- ray. She has diffuse edema and ascites as mentioned above. I'm gently diuresing with IV Lasix at this point. 4. IV access: The patient has poor IV access. Therefore, a right triple lumen internal jugular vein was placed with ultrasound guidance. Chest x-ray shows good placement and no pneumothorax. 5. CODE STATUS: I have discussed the patient's condition with her and at this point she wants all measures (including intubation, ventilation and IV medicines ) if needed. 12/13/16 19:02 12/13/16 19:05 12/13/16 20:42 12/13/16 20:54 (IFRAH WU) - Vital Signs Vital signs: Temp Pulse Resp BP Pulse Ox 97.9 F 106 H 28 H 113/34 L 99 12/13/16 17:00 12/13/16 12:00 12/13/16 20:01 12/13/16 20:00 12/13/16 20:01 - Laboratory Laboratory results interpreted by me: 12/13/16 12/13/16 12/13/16 13:00 13:03 13:03 WBC 16.7 H RBC 3.11 L Hgb 10.4 L Hct 30.8 L MCV 99 H MCH 33.5 H RDW 20.0 H Eosinophils % 11.2 H Absolute Neutrophils 11.5 H Absolute Eosinophils 1.9 H Sodium 132.3 L Potassium 6.6 H* Carbon Dioxide 19 L BUN 80 H Creatinine 3.06 H Est GFR ( Amer) 18 L Est GFR (Non-Af Amer) 15 L Glucose Lactic Acid Alkaline Phosphatase 130 H Creatine Kinase NT-Pro-B Natriuret Pep Total Protein 5.8 L Albumin 2.5 L Urine Protein 30 H Urine Blood SMALL H Ur Leukocyte Esterase LARGE H 12/13/16 12/13/16 12/13/16 14:05 15:01 15:01 WBC RBC Hgb Hct MCV MCH RDW Eosinophils % Absolute Neutrophils Absolute Eosinophils Sodium 131.3 L Potassium 6.6 H* Carbon Dioxide 18 L BUN 78 H Creatinine 3.06 H Est GFR ( Amer) 18 L Est GFR (Non-Af Amer) 15 L Glucose Lactic Acid 2.5 H Alkaline Phosphatase Creatine Kinase 22 L NT-Pro-B Natriuret Pep Total Protein Albumin Urine Protein Urine Blood Ur Leukocyte Esterase 12/13/16 12/13/16 15:01 17:45 WBC RBC Hgb Hct MCV MCH RDW Eosinophils % Absolute Neutrophils Absolute Eosinophils Sodium 130.1 L Potassium 6.1 H* Carbon Dioxide 16 L BUN 79 H Creatinine 2.96 H Est GFR ( Amer) 19 L Est GFR (Non-Af Amer) 16 L Glucose 125 H Lactic Acid Alkaline Phosphatase Creatine Kinase NT-Pro-B Natriuret Pep 9800 H Total Protein Albumin Urine Protein Urine Blood Ur Leukocyte Esterase Procedures <NIA KLINELINE - Last Filed: 12/13/16 15:26> - Central Line Right Internal jugular Time completed: 19:03 Consent obtained: Yes Central line pre-insertion: Chloraprep applied, Sterile drapes applied Central line size (Fr.): 18 - triple-lumen Central line lumen type: Triple Anesthetic type: 1% Lidocaine mL's of anesthesia: 4 Ultrasound guided: Yes CM at insertion site: 18 Line secured with sutures: Yes Central line post-insertion: Blood return from lumens, Biopatch applied, Sutured , Sterile dressing applied, Position confirmed w/ CXR Number of attempts: 1 Complications: No - Paracentesis RLQ Time completed: 19:00 Consent obtained: Yes Paracentesis pre-procedure: Chloraprep applied, Sterile drapes applied Needle size: 20 Paracentesis location: right lower quadrant Anesthetic type: 1% Lidocaine mL's of anesthetic: 4 Amount/type of drainage: straw-colored Number of attempts: 1 Ultrasound guided: Yes Complications: No <IFRAH WU - Last Filed: 12/13/16 21:01> - Central Line Right Internal jugular Notes: 12/13/16 19:04 Post procedure ultrasound shows the catheter in the internal jugular vein. MSBT (maximum sterile barrier technique) followed including cap, mask, sterile gloves, large sterile sheet, hand hygiene, sterile ultrasound probe sleeve, sterile saline for probe visualization, liberal ChloraPrep for cutaneous antisepsis both during procedure set up and immediately before Biopatch application, line stabilization with suture and sterile Tegaderm placement. ( IFRAH WU) - Paracentesis RLQ Notes: 12/13/16 20:59 Note: Bedside ultrasound was used to identify fluid pockets in both the right lower left lower quadrant. I felt the right lower quadrant was preferable because there seemed to be less venous dilatation in the superficial skin identified. Therefore, the right lower quadrant was employed. The fluid was entertained under ultrasound guidance. The fluid was straw-colored. 60 mL of fluid was obtained for a diagnostic tap. Therapeutic tap was avoided because of the suspicion for SBP (and to avoid hepatorenal syndrome). (IFRAH WU) Critical Care Note <NATHANIEL KLINE - Last Filed: 12/13/16 15:26> - Critical Care Note Total time excluding time spent on procedures (mins): 107 <IFRAH WU - Last Filed: 12/13/16 21:01> - Critical Care Note Comments: Note: About a long conversation regarding CODE STATUS with the patient. I have told her that she is very sick and her prognosis is ultimately not good. I've gone over her desires for CODE STATUS. Currently she wants everything done. Additionally, I spent time going over old records, medicines at the snf , presenting the case is to hospitalists at this hospital, [facility] (has no beds) , and at [facility]. (IFRAH WU) Discharge <NATHANIEL KLINE - Last Filed: 12/13/16 15:26> <IFRAH WU - Last Filed: 12/13/16 21:01> - Discharge Clinical Impression: hyperkalemia, acute on chronic renal failure, Anasarca Condition: Serious Disposition: [facility] Referrals: DINAH SERNA MD [Primary Care Provider] - Follow up as needed
[2016-12-13] MEDS ORDERED: NYSTATIN/TRIAMCIN CREAM 15 GM TP ONE ×2 (13:35→16:15)
[2016-12-13 13:40] LABS: ALANINE AMINOTRANSFERASE 24 U/L (9-52); ALBUMIN 2.5 g/dL (3.5-5.0); ALKALINE PHOSPHATASE 130 U/L (38-126); ANION GAP 11 (5-19); ASPARTATE AMINO TRANSFERASE 28 U/L (14-36); BILIRUBIN,TOTAL 0.7 mg/dL (0.2-1.3); BLOOD UREA NITROGEN 80 mg/dL (7-20); CALCIUM 8.6 mg/dL (8.4-10.2); CARBON DIOXIDE 19 mmol/L (22-30); CHLORIDE 102 mmol/L (98-107); CREATININE RESULT 3.06 mg/dL (0.52-1.25); GLUCOSE 101 mg/dL (75-110); LIPASE 36.8 U/L (23-300); SODIUM 132.3 mmol/L (137-145); TOTAL PROTEIN 5.8 g/dL (6.3-8.2)
[2016-12-13 13:41] LABS: ABSOLUTE BASOPHILS # (AUTO) 0.1 10^3/uL (0.0-0.2); ABSOLUTE EOSINOPHILS # (AUTO) 1.9 10^3/uL (0.0-0.6); ABSOLUTE LYMPHOCYTES (AUTO) 2.3 10^3/uL (0.5-4.7); ABSOLUTE MONOCYTES (AUTO) 0.9 10^3/uL (0.1-1.4); ABSOLUTE NEUT (AUTO) 11.5 10^3/uL (1.7-8.2); BASOPHILS % (AUTO) 0.8 % (0-2); EOSINOPHILS % (AUTO) 11.2 % (0-6); HEMATOCRIT 30.8 % (36.0-47.0); HEMOGLOBIN 10.4 g/dL (12.0-15.5); HGB HCT DIFFERENCE 0.4; LYMPHOCYTES % (AUTO) 13.6 % (13-45); MEAN CORPUSCULAR HEMOGLOBIN 33.5 pg (27.0-33.4); MEAN CORPUSCULAR HGB CONC 33.8 g/dL (32.0-36.0); MEAN CORPUSCULAR VOLUME 99 fl (80-97); MONOCYTES % (AUTO) 5.4 % (3-13); RED BLOOD COUNT 3.11 10^6/uL (3.72-5.28); WHITE BLOOD COUNT 16.7 10^3/uL (4.0-10.5)
[2016-12-13 13:46] LABS: POTASSIUM 6.6 mmol/L (3.6-5.0)
[2016-12-13] MEDS ORDERED: CALCIUM GLUCONATE 1000 MG/10 ML INJ IV ONE ×2 (13:52→20:19)
[2016-12-13] MEDS ORDERED: INSULIN REG, HUMAN 100 UNIT/ML 3 ML VIAL (PYX) IV ONE ×2 (13:53→20:19)
[2016-12-13] MEDS ORDERED: DEXTROSE 50%-WATER 25 GM/50 ML DISP.SYRIN IV ONE ×2 (13:53→20:19)
[2016-12-13 13:54] LABS: PROTHROMBIN TIME 14.7 SEC (11.4-15.4)
[2016-12-13 13:55] LABS: PARTIAL THROMBOPLASTIN TIME 32.7 SEC (23.5-35.8)
[2016-12-13 14:03] LABS: APPEARANCE,URINE CLOUDY; BILIRUBIN,URINE NEGATIVE (NEGATIVE); GLUCOSE, URINE NEGATIVE (NEGATIVE); KETONES,URINE NEGATIVE (NEGATIVE); LEUKOCYTE ESTERASE,URINE LARGE (NEGATIVE); NITRITE,URINE NEGATIVE (NEGATIVE); PROTEIN,URINE 30 mg/dL (NEGATIVE); URINE SPECIFIC GRAVITY 1.013; UROBILINOGEN,URINE NEGATIVE mg/dL (<2.0)
[2016-12-13 14:27] LABS: ANION GAP 11 (5-19); BLOOD UREA NITROGEN 78 mg/dL (7-20); CALCIUM 8.5 mg/dL (8.4-10.2); CARBON DIOXIDE 18 mmol/L (22-30); CHLORIDE 102 mmol/L (98-107); CREATININE RESULT 3.06 mg/dL (0.52-1.25); GLUCOSE 96 mg/dL (75-110); SODIUM 131.3 mmol/L (137-145)
[2016-12-13 14:36] LABS: POTASSIUM 6.6 mmol/L (3.6-5.0)
[2016-12-13] MEDS: ALBUTEROL SULFATE 0.083% NEB 2.5 MG/3 ML AMPUL NEB SCH ×2 (14:40→15:54)
[2016-12-13] MEDS ORDERED: LEVOFLOXACIN 500 MG/D5W RTU 100 ML IV ONE (15:20)
[2016-12-13 15:38] LABS: CREATINE KINASE MB 0.55 ng/mL (<4.55)
[2016-12-13 18:19] LABS: ANION GAP 12 (5-19); BLOOD UREA NITROGEN 79 mg/dL (7-20); CALCIUM 8.8 mg/dL (8.4-10.2); CARBON DIOXIDE 16 mmol/L (22-30); CHLORIDE 102 mmol/L (98-107); CREATININE RESULT 2.96 mg/dL (0.52-1.25); GLUCOSE 125 mg/dL (75-110); SODIUM 130.1 mmol/L (137-145)
[2016-12-13 18:28] LABS: POTASSIUM 6.1 mmol/L (3.6-5.0)
[2016-12-13 18:54] LABS: FLUID TYPE PERITONEAL
[2016-12-13 18:56] LABS: FLUID APPEARANCE SLIGHTLY HAZY; FLUID RBC AVERAGE 257.5; FLUID RBC SIDE 1 261; FLUID RBC SIDE 2 254
[2016-12-13 18:57] LABS: FLUID RBC DILUENT USED NONE USED; FLUID RBC DILUTION FACTOR 1; TOTAL RBC SQUARES COUNTED FLD 225
[2016-12-13] MEDS ORDERED: SODIUM POLYSTYRENE SULFONATE 15 GM/60 ML PO ONE (18:58)
[2016-12-13] MEDS ORDERED: FUROSEMIDE INJ/PF 40 MG/4 ML SDV IV ONE (20:21)
--- NOTE | 2016-12-13 20:46 | EKG REPORT ---
SEVERITY:- ABNORMAL ECG - SINUS TACHYCARDIA PROBABLE INFERIOR INFARCT, AGE INDETERMINATE CONSIDER ANTERIOR INFARCT : Confirmed by: Alisha Childs MD 13-Dec-2016 20:46:18
[2016-12-13 22:09] VITALS: BP 124/33
== END 2016-12-13 22:06 | disposition short-term general hospital (02) ==
LOC: ER 11:47
PROC: 05HM33Z Insertion of Infusion Device into Right Internal Jugular Vein, Percutaneous Approach (ICD-10-PCS; principal; 2016-12-13)
PROC: 0W9G3ZZ Drainage of Peritoneal Cavity, Percutaneous Approach (ICD-10-PCS; 2016-12-13)
PROC: BW40ZZZ Ultrasonography of Abdomen (ICD-10-PCS; 2016-12-13)
DX: E87.5 Hyperkalemia (principal); N17.9 Acute kidney failure, unspecified; R60.1 Generalized edema; L03.311 Cellulitis of abdominal wall; R10.9 Unspecified abdominal pain; L22 Diaper dermatitis; J44.9 Chronic obstructive pulmonary disease, unspecified; E11.22 Type 2 diabetes mellitus with diabetic chronic kidney disease; I13.2 Hypertensive heart and chronic kidney disease with heart failure and with stage 5 chronic kidney disease, or end stage renal disease; I50.9 Heart failure, unspecified; N18.6 End stage renal disease; R18.8 Other ascites; Z88.0 Allergy status to penicillin; Z88.6 Allergy status to analgesic agent; Z88.2 Allergy status to sulfonamides
CPT/HCPCS: 93005; 96376; 94640; 99291; 99292; 96375; 96365; 96366; 96367; 36415; 87040; 87205; 87070; 82553; 82550; 83690; 85025; 85610; 85730; 89050; 87075; 87077; 80048; 80053; 81001; 83605; 83615; 83880; 71010; 93010; 36556; 49083; C1751; J1956; J0610; J3490 ×2; J1940; A9270 ×2; 87186; J1815

== ENCOUNTER 2017-01-06 17:20 | Emergency (ER) | payer MEDICARE, OTHER ==
[2017-01-06 17:56] LABS: ABSOLUTE BASOPHILS # (AUTO) 0.1 10^3/uL (0.0-0.2); ABSOLUTE EOSINOPHILS # (AUTO) 0.9 10^3/uL (0.0-0.6); ABSOLUTE LYMPHOCYTES (AUTO) 1.5 10^3/uL (0.5-4.7); ABSOLUTE MONOCYTES (AUTO) 0.6 10^3/uL (0.1-1.4); ABSOLUTE NEUT (AUTO) 6.1 10^3/uL (1.7-8.2); BASOPHILS % (AUTO) 0.8 % (0-2); EOSINOPHILS % (AUTO) 10.1 % (0-6); HEMATOCRIT 26.3 % (36.0-47.0); HEMOGLOBIN 8.8 g/dL (12.0-15.5); HGB HCT DIFFERENCE 0.1; LYMPHOCYTES % (AUTO) 16.6 % (13-45); MEAN CORPUSCULAR HGB CONC 33.3 g/dL (32.0-36.0); MEAN CORPUSCULAR VOLUME 99 fl (80-97); MONOCYTES % (AUTO) 6.2 % (3-13); RED BLOOD COUNT 2.66 10^6/uL (3.72-5.28); SEGMENTED NEUTROPHILS % (AUTO) 66.3 % (42-78); WHITE BLOOD COUNT 9.2 10^3/uL (4.0-10.5)
[2017-01-06 18:13] LABS: ALANINE AMINOTRANSFERASE 36 U/L (9-52); ALBUMIN 2.5 g/dL (3.5-5.0); ALKALINE PHOSPHATASE 203 U/L (38-126); ANION GAP 9 (5-19); ASPARTATE AMINO TRANSFERASE 28 U/L (14-36); BILIRUBIN,DIRECT 0.5 mg/dL (0.0-0.4); BILIRUBIN,TOTAL 0.8 mg/dL (0.2-1.3); BLOOD UREA NITROGEN 63 mg/dL (7-20); CALCIUM 8.6 mg/dL (8.4-10.2); CARBON DIOXIDE 18 mmol/L (22-30); CHLORIDE 110 mmol/L (98-107); CREATININE RESULT 1.86 mg/dL (0.52-1.25); GLUCOSE 150 mg/dL (75-110); LIPASE 99.2 U/L (23-300); SODIUM 137.1 mmol/L (137-145); TOTAL PROTEIN 5.2 g/dL (6.3-8.2)
[2017-01-06 18:16] LABS: POTASSIUM 6.1 mmol/L (3.6-5.0)
[2017-01-06 18:17] LABS: APPEARANCE,URINE CLOUDY; BILIRUBIN,URINE NEGATIVE (NEGATIVE); GLUCOSE, URINE NEGATIVE (NEGATIVE); KETONES,URINE NEGATIVE (NEGATIVE); LEUKOCYTE ESTERASE,URINE LARGE (NEGATIVE); NITRITE,URINE NEGATIVE (NEGATIVE); PROTEIN,URINE 30 mg/dL (NEGATIVE); URINE SPECIFIC GRAVITY 1.012; UROBILINOGEN,URINE NEGATIVE mg/dL (<2.0)
[2017-01-06] MEDS ORDERED: FUROSEMIDE INJ/PF 40 MG/4 ML SDV IV ONE (18:40)
[2017-01-06] MEDS ORDERED: DEXTROSE 50%-WATER 25 GM/50 ML DISP.SYRIN IV ONE (18:40)
[2017-01-06] MEDS ORDERED: INSULIN REG, HUMAN 100 UNIT/ML 3 ML VIAL (PYX) IV ONE (18:40)
--- NOTE | 2017-01-06 18:42 | ER Document Report ---
ED General - General Chief Complaint: Abdominal Pain Stated Complaint: LEG AND ABDOMINAL PAIN Notes: Patient is a 71-year-old female with a history of liver cirrhosis with recurrent abdominal ascites with frequent presentations to the emergency department for complaints of abdominal discomfort in the setting of this chronic condition who again presents today with complaints of abdominal distention. Patient is a poor historian but states that she has required up to 15 L drawn out in a given week when she was and [facility] several weeks ago. She currently resides in a nursing facility. She denies anything is new or different about her abdominal pain today and she describes a sensation of abdominal fullness and tightness that is constant. She describes the pain as moderate to severe pain. Nothing improves or worsens her pain. She has not had any vomiting, or difficulty tolerating oral intake. TRAVEL OUTSIDE OF THE [place] IN LAST 30 DAYS: No - Related Data Allergies/Adverse Reactions: amoxicillin Allergy (Verified 01/06/17 17:49) ampicillin Allergy (Verified 01/06/17 17:49) cefepime Allergy (Verified 01/06/17 17:49) morphine Allergy (Verified 01/06/17 17:49) Sulfa (Sulfonamide Antibiotics) Allergy (Verified 01/06/17 17:49) rash Past Medical History - General Information source: Patient - Social History Smoking Status: Former Smoker Chew tobacco use (# tins/day): No Frequency of alcohol use: None Drug Abuse: None Lives with: [facility] Family History: None, Hypertension - Past Medical History Cardiac Medical History: Reports: Hx Congestive Heart Failure, Hx Hypercholesterolemia, Hx Hypertension Pulmonary Medical History: Reports: Hx Asthma, Hx COPD Endocrine Medical History: Reports: Hx Diabetes Mellitus Type 2, Hx Hypothyroidism Renal/ Medical History: Reports: Hx End Stage Renal Disease - Patient states she has renal failure from her diabetes. Denies: Hx Peritoneal Dialysis GI Medical History: Reports: Hx Liver Failure, Hx Endoscopy Musculoskeltal Medical History: Reports Hx Arthritis, Reports Hx Musculoskeletal Trauma Skin Medical History: Reports Hx Cellulitis Traumatic Medical History: Reports: Hx Fractures - Right knee Past Surgical History: Reports: Hx Herniorrhaphy - Umbilical, Hx Orthopedic Surgery - Right knee, Hx Umbilical Hernia - Immunizations Immunizations up to date: Yes Hx Diphtheria, Pertussis, Tetanus Vaccination: No Review of Systems - Review of Systems Notes: Constitutional: Negative for fever. HENT: Negative for sore throat. Eyes: Negative for visual changes. Cardiovascular: Negative for chest pain. Respiratory: Negative for shortness of breath. Gastrointestinal: Positive for abdominal distention and pain Genitourinary: Negative for dysuria. Musculoskeletal: Negative for back pain. Skin: Negative for rash. Neurological: Negative for headaches, weakness or numbness. 10 point ROS negative except as marked above and in HPI. Physical Exam - Vital signs Vitals: Resp Pulse Ox 16 100 01/06/17 18:00 01/06/17 18:00 Interpretation: Normal Notes: PHYSICAL EXAMINATION: GENERAL: Frail, chronically ill in appearance but in no acute distress HEAD: Atraumatic, normocephalic. EYES: Pupils equal round and reactive to light, extraocular movements intact, sclera anicteric, conjunctiva are normal. ENT: nares patent, oropharynx clear without exudates. Moderately dry mucous membranes. NECK: Normal range of motion, supple without lymphadenopathy LUNGS: Breath sounds clear to auscultation bilaterally and equal. No wheezes rales or rhonchi. HEART: Regular tachycardia without murmurs ABDOMEN: Distended, positive fluid wave. No focal rebound or guarding. EXTREMITIES: Normal range of motion, no pitting or edema. No cyanosis. NEUROLOGICAL: No focal neurological deficits. Moves all extremities spontaneously and on command. PSYCH: Normal mood, normal affect. SKIN: Warm, Dry, normal turgor, no rashes or lesions noted. Course - Re-evaluation Re-evalutation: 01/06/17 18:41 Patient presents for the fifth time since September of this year for complaints of abdominal distention a setting of chronic renal and liver failure and abdominal ascites. Patient has required up to 15 L drawn weekly in the past and her fpc and he has arranged for her to have a regular therapeutic paracentesis per Dr. Serna in the coming weeks. I did discuss patient's persistent hyperkalemia with Dr. Mcpherson salt washer harvesting station agronomy teacher who is in agreement with initiating Lasix and Kayexalate and has agreed that spironolactone is likely contributing to her hyperkalemia as this only began when she was started on this medication for her heart failure in October. I have written out a prescription to discontinue spironolactone, begin Lasix 20 mg daily and Kayexalate 15g daily. Regarding patient's abdomen: She states that this has been to this degree of tension and discomfort for weeks and is unchanged today. She has no focal tenderness, no leukocytosis, no fever to suggest an acute spontaneous bacterial peritonitis. Will therefore not proceed with a diagnostic paracentesis at this time. Patient's labs also notable for chronic anemia which is unchanged today. Patient is also noted to be tachycardic at 107. Review of vital signs in the past 3 months demonstrates that patient is consistently tachycardic and generally does not have a heart rate goes below 106. At this time, patient is a chronically ill patient with multiple comorbidities but does not warrant emergent hospitalization at this time. She will be discharged back to the facility with the above recommendations. I've reviewed this information with Dr. Serna prior to discharge. - Vital Signs Vital signs: Temp Pulse Resp BP Pulse Ox 98.7 F 16 123/30 L 99 01/06/17 18:01 01/06/17 19:01 01/06/17 19:01 01/06/17 19:01 - Laboratory Result Diagrams: 01/06/17 17:43 01/06/17 17:43 Laboratory results interpreted by me: 01/06/17 01/06/17 01/06/17 17:43 17:43 17:52 RBC 2.66 L Hgb 8.8 L Hct 26.3 L MCV 99 H RDW 18.0 H Eosinophils % 10.1 H Absolute Eosinophils 0.9 H Potassium 6.1 H* Chloride 110 H Carbon Dioxide 18 L BUN 63 H Creatinine 1.86 H Est GFR ( Amer) 32 L Est GFR (Non-Af Amer) 27 L Glucose 150 H Direct Bilirubin 0.5 H Alkaline Phosphatase 203 H Total Protein 5.2 L Albumin 2.5 L Urine Protein 30 H Urine Blood MODERATE H Ur Leukocyte Esterase LARGE H Discharge - Discharge Clinical Impression: Hyperkalemia, Anasarca, Anemia of chronic disease Condition: Fair Disposition: HOME-SNF (ED ONLY) Additional Instructions: This patient needs to follow-up with a GI clinic for therapeutic paracentesis. We do not perform this procedure in the emergency department and the patient should not be transferred to the emergency department for this procedure. The patient's potassium was again dangerously high today at 6.1 as it was when you melodie labs yesterday. I have discussed with Dr. Chencho Mcpherson, the salt washer harvesting station agronomy teacher as well as Dr. Serna the patient's inpatient physician at your facility The following medication changes need to be instituted effective immediately: Discontinue spironolactone Begin furosemide 20 mg by mouth daily Begin Kayexalate 15 mg by mouth daily Please send patient back to the emergency department if you have any additional concerns including confusion, fever of greater than 100.4F, vomiting, or any other symptoms that are concerning to you. Prescriptions: Spironolactone 0 mg PO DAILY #0 Referrals: DINAH SERNA MD [Primary Care Provider] - Follow up as needed
[2017-01-06] MEDS ORDERED: FUROSEMIDE INJ/PF 20 MG/2 ML SDV IV ONE (18:48)
[2017-01-06] MEDS ORDERED: SODIUM POLYSTYRENE SULFONATE 15 GM/60 ML PO ONE (18:49)
[2017-01-06 19:30] VITALS: BP 123/30
== END 2017-01-06 19:35 ==
LOC: ER 17:20
DX: E87.5 Hyperkalemia (principal); R60.1 Generalized edema; D63.8 Anemia in other chronic diseases classified elsewhere; R10.9 Unspecified abdominal pain; K74.60 Unspecified cirrhosis of liver; R18.8 Other ascites; Z87.891 Personal history of nicotine dependence
CPT/HCPCS: 99284; 96374; 96375; 36415; 83690; 85025; 80053; 81001; J3490; J1940; A9270; J1815

== ENCOUNTER 2017-02-18 19:14 | Emergency (ER) | payer MEDICARE, OTHER ==
[2017-02-18] MEDS ORDERED: NORMAL SALINE 1000 ML 1,000 ML IV ONE (20:27)
--- NOTE | 2017-02-18 20:29 | ER Document Report ---
ED General - General Chief Complaint: Skin Problem Stated Complaint: BED SORES Time Seen by Provider: 02/18/17 19:37 Cannot obtain history due to: Dementia Notes: Patient is a 71-year-old female with a history of chronic kidney disease, chronic abdominal ascites requiring frequent therapeutic paracentesis, presents by EMS after being transferred to a new facility and that facility noting multiple pressure ulcers. Due to the pressure ulcer has not been reported to [facility] by [facility] , she was transferred to the emergency department for a complete assessment. Patient herself is a very poor historian secondary to baseline dementia. EMS likewise did not have any additional ports beyond the new facility's concern regarding multiple pressure ulcers on her buttocks. TRAVEL OUTSIDE OF THE [place] IN LAST 30 DAYS: No - Related Data Allergies/Adverse Reactions: amoxicillin Allergy (Verified 01/06/17 17:49) ampicillin Allergy (Verified 01/06/17 17:49) cefepime Allergy (Verified 01/06/17 17:49) morphine Allergy (Verified 01/06/17 17:49) Sulfa (Sulfonamide Antibiotics) Allergy (Verified 01/06/17 17:49) rash Home Medications: Current Home Medications Allopurinol [Zyloprim 300 mg Tablet] 300 mg PO DAILY 02/18/17 [History] Aspirin [Aspirin EC] 81 mg PO DAILY 02/18/17 [History] Atorvastatin Calcium [Lipitor 10 mg Tablet] 10 mg PO QHS 02/18/17 [History] Docusate Sodium [Colace 100 mg Capsule] 100 mg PO DAILY 02/18/17 [History] Fexofenadine HCl [Cynthia] 180 mg PO DAILY 02/18/17 [History] Furosemide [Lasix] 40 mg PO DAILY 02/18/17 [History] Gabapentin [Neurontin 300 mg Capsule] 300 mg PO QHS 02/18/17 [History] Insulin Glargine,Hum.rec.anlog [Lantus] 15 unit SUBCUT QHS 02/18/17 [History] Insulin Lispro [Humalog] 0 unit SQ .SLD SCALE 02/18/17 [History] Levothyroxine Sodium [Synthroid 0.075 mg Tablet] 0.075 mg PO DAILY 02/18/17 [ History] Metolazone [Zaroxolyn 5 Mg Tablet] 5 mg PO DAILY 02/18/17 [History] Nystatin [Mycostatin Topical Powder 15 gm] 1 applic TP TID 02/18/17 [History] [place]-3 Acid Ethyl Esters [Lovaza 1 gm Capsule] 1 gm PO DAILY 02/18/17 [History] Omeprazole Magnesium [Prilosec Otc] 20 mg PO DAILY 02/18/17 [History] Polyethylene Glycol 3350 [Miralax Powder 17 gm/Packet] 1 packet PO DAILYP PRN [History] Potassium Chloride [Klor-Con 10 Meq Tablet.sa] 20 meq PO DAILY 02/18/17 [History ] Past Medical History - General Information source: Patient, Relative, Emergency Med Personnel Cannot obtain history due to: Dementia - Social History Smoking Status: Never Smoker Frequency of alcohol use: None Drug Abuse: None Lives with: Intermediate Family History: Reviewed & Not Pertinent, Hypertension - Past Medical History Cardiac Medical History: Reports: Hx Congestive Heart Failure, Hx Hypercholesterolemia, Hx Hypertension Pulmonary Medical History: Reports: Hx Asthma, Hx COPD Endocrine Medical History: Reports: Hx Diabetes Mellitus Type 2, Hx Hypothyroidism Renal/ Medical History: Reports: Hx End Stage Renal Disease - Patient states she has renal failure from her diabetes. Denies: Hx Peritoneal Dialysis GI Medical History: Reports: Hx Liver Failure, Hx Endoscopy Musculoskeltal Medical History: Reports Hx Arthritis, Reports Hx Musculoskeletal Trauma Skin Medical History: Reports Hx Cellulitis Traumatic Medical History: Reports: Hx Fractures - Right knee Past Surgical History: Reports: Hx Herniorrhaphy - Umbilical, Hx Orthopedic Surgery - Right knee, Hx Umbilical Hernia - Immunizations Immunizations up to date: Yes Hx Diphtheria, Pertussis, Tetanus Vaccination: No Review of Systems - Review of Systems Notes: Constitutional: Negative for fever. HENT: Negative for sore throat. Eyes: Negative for visual changes. Cardiovascular: Negative for chest pain. Respiratory: Negative for shortness of breath. Gastrointestinal: Negative for abdominal pain, vomiting or diarrhea. Genitourinary: Negative for dysuria. Musculoskeletal: Negative for back pain. Skin: Positive for pressure ulcers Neurological: Negative for headaches, weakness or numbness. 10 point ROS negative except as marked above and in HPI. Physical Exam - Vital signs Vitals: Temp Resp BP Pulse Ox 98.7 F 17 111/34 L 99 02/18/17 20:44 02/18/17 20:44 02/18/17 20:44 02/18/17 20:44 Notes: PHYSICAL EXAMINATION: GENERAL: Chronically ill and disheveled in appearance but in no acute distress HEAD: Atraumatic, normocephalic. EYES: Pupils equal round and reactive to light, extraocular movements intact, sclera anicteric, conjunctiva are normal. ENT: nares patent, oropharynx clear without exudates. Moderately dry mucous membranes. NECK: Normal range of motion, supple without lymphadenopathy LUNGS: Breath sounds clear to auscultation bilaterally and equal. No wheezes rales or rhonchi. HEART: Regular tachycardia without murmurs ABDOMEN: Soft, nontender, normoactive bowel sounds. No guarding, no rebound. No masses appreciated. EXTREMITIES: Normal range of motion, trace edema, equal in the bilateral lower extremities. No cyanosis. NEUROLOGICAL: No focal neurological deficits. Moves all extremities spontaneously and on command. PSYCH: Somewhat confused, but alert, oriented to person and place SKIN: Warm, Dry, normal turgor, multiple stage 1 pressure ulcers of the left buttock, one stage 2 that is 0.25cm X0.25 cm. Course - Re-evaluation Re-evalutation: 02/18/17 20:27 Patient presents with facility concerns about bedsores but they are not whereupon the patient being transferred to them from [place]. Patient does have several stage I and I small stage II pressure sore on her left buttock as well as a sore on her right lower abdomen which is dressed. None of these wounds appear grossly infected. Patient is malodorous, has been poorly cleaned , and the Goode catheter itself appears contaminated. The urine itself likewise looks to be grossly contaminated. Patient also appears significantly dehydrated. I have ongoing concerns about the care of this patient has received at [facility] prior to being transferred to [facility] today. I intend to file an Adult Protective Services report per family request 02/18/17 23:27 Urinalysis does demonstrate findings consistent with a urinary tract infection. The Goode catheter was changed out. Patient on the laboratories demonstrate mild hyperkalemia without any acute EKG changes. This is a chronic problem for this patient. Her creatinine is actually improved today relative to baseline. Her anemia is also improved relative to baseline. Patient does have baseline tachycardia which is unchanged today her heart rate at 109. At this point I do not see an acute reason to admit her to the hospital. She will be discharged back to [facility] on cephalexin for 7 days. At this time will discharge with return precautions and follow-up recommendations. Verbal discharge instructions given a the bedside and opportunity for questions given. Medication warnings reviewed. Patient is in agreement with this plan and has verbalized understanding of return precautions and the need for primary care follow-up in the next 24-72 hours. - Vital Signs Vital signs: Temp Pulse Resp BP Pulse Ox 98.7 F 16 111/34 L 99 02/18/17 20:44 02/18/17 21:03 02/18/17 21:03 02/18/17 21:03 - Laboratory Result Diagrams: 02/18/17 21:32 02/18/17 21:32 Laboratory results interpreted by me: 02/18/17 02/18/17 02/18/17 20:43 21:32 21:32 WBC 12.2 H RBC 2.91 L Hgb 8.9 L Hct 27.8 L RDW 16.5 H Seg Neutrophils % 82.4 H Lymphocytes % 10.0 L Absolute Neutrophils 10.0 H Sodium 127.6 L Potassium 5.5 H Carbon Dioxide 16 L BUN 72 H Creatinine 1.97 H Est GFR ( Amer) 30 L Est GFR (Non-Af Amer) 25 L Glucose 132 H Calcium 8.0 L Direct Bilirubin 0.7 H Alkaline Phosphatase 168 H Total Protein 4.7 L Albumin 2.1 L Urine Protein 100 H Urine Blood LARGE H Ur Leukocyte Esterase MODERATE H - Diagnostic Test Radiology reviewed: Image reviewed, Reports reviewed Radiology results interpreted by me: 02/18/17 23:31 Pelvis x-ray: No acute fracture or dislocation Discharge - Discharge Clinical Impression: Pressure ulcer of left buttock, stage 1, Pressure ulcer of right buttock, stage 1 UTI (urinary tract infection) Qualifiers: Urinary tract infection type: site unspecified Hematuria presence: with hematuria Qualified Code(s): N39.0 - Urinary tract infection, site not specified Condition: Stable Disposition: HOME-SNF (ED ONLY) Additional Instructions: Your urine shows findings consistent with a urinary tract infection. Please take all the antibiotics as directed even if your symptoms have improved. Please follow-up with your primary care physician as needed. Return to emergency room if you develop fever >101F, persistent vomiting, become lethargic , have severe pain in your sides, or any other symptoms that are concerning to you. Please be sure the patient is turned frequently for her multiple pressure ulcers on the bilateral buttocks. Prescriptions: Cephalexin Monohydrate [Keflex 500 mg Capsule] 500 mg PO QID #28 capsule
[2017-02-18 22:13] LABS: APPEARANCE,URINE TURBID; BILIRUBIN,URINE NEGATIVE (NEGATIVE); GLUCOSE, URINE NEGATIVE (NEGATIVE); KETONES,URINE NEGATIVE (NEGATIVE); LEUKOCYTE ESTERASE,URINE MODERATE (NEGATIVE); NITRITE,URINE NEGATIVE (NEGATIVE); PROTEIN,URINE 100 mg/dL (NEGATIVE); URINE SPECIFIC GRAVITY 1.013; UROBILINOGEN,URINE NEGATIVE mg/dL (<2.0)
[2017-02-18 22:21] LABS: ALANINE AMINOTRANSFERASE 23 U/L (9-52); ALBUMIN 2.1 g/dL (3.5-5.0); ALKALINE PHOSPHATASE 168 U/L (38-126); ANION GAP 11 (5-19); ASPARTATE AMINO TRANSFERASE 23 U/L (14-36); BILIRUBIN,DIRECT 0.7 mg/dL (0.0-0.4); BILIRUBIN,TOTAL 1.2 mg/dL (0.2-1.3); BLOOD UREA NITROGEN 72 mg/dL (7-20); CARBON DIOXIDE 16 mmol/L (22-30); CHLORIDE 101 mmol/L (98-107); CREATININE RESULT 1.97 mg/dL (0.52-1.25); GLUCOSE 132 mg/dL (75-110); POTASSIUM 5.5 mmol/L (3.6-5.0); SODIUM 127.6 mmol/L (137-145); TOTAL PROTEIN 4.7 g/dL (6.3-8.2)
[2017-02-18] MEDS ORDERED: CEPHALEXIN 500 MG CAPSULE PO ONE (22:28)
[2017-02-18] MEDS ORDERED: ACETAMINOPHEN 325 MG TABLET PO ONE (22:28)
[2017-02-18 22:55] LABS: ABSOLUTE BASOPHILS # (AUTO) 0.1 10^3/uL (0.0-0.2); ABSOLUTE EOSINOPHILS # (AUTO) 0.1 10^3/uL (0.0-0.6); ABSOLUTE LYMPHOCYTES (AUTO) 1.2 10^3/uL (0.5-4.7); ABSOLUTE MONOCYTES (AUTO) 0.6 10^3/uL (0.1-1.4); BASOPHILS % (AUTO) 1.2 % (0-2); EOSINOPHILS % (AUTO) 1.1 % (0-6); HEMATOCRIT 27.8 % (36.0-47.0); HEMOGLOBIN 8.9 g/dL (12.0-15.5); HGB HCT DIFFERENCE -1.1; MEAN CORPUSCULAR HEMOGLOBIN 30.6 pg (27.0-33.4); MEAN CORPUSCULAR VOLUME 96 fl (80-97); MONOCYTES % (AUTO) 5.3 % (3-13); RED BLOOD COUNT 2.91 10^6/uL (3.72-5.28); RED CELL DISTRIBUTION WIDTH 16.5 % (11.5-14.0); SEGMENTED NEUTROPHILS % (AUTO) 82.4 % (42-78); WHITE BLOOD COUNT 12.2 10^3/uL (4.0-10.5)
--- NOTE | 2017-02-18 23:10 | RADIOLOGY REPORT (SQ) ---
EXAM DESCRIPTION: PELVIS AP COMPLETED DATE/TIME: 02/18/2017 10:52 pm REASON FOR STUDY: right hip pain COMPARISON: None. NUMBER OF VIEWS: One view TECHNIQUE: AP Pelvis LIMITATIONS: None. FINDINGS: MINERALIZATION: Osteopenia. HIPS: No fracture or dislocation identified. No worrisome bone lesions. PELVIS AND SACRUM: No acute fracture or dislocation. No worrisome bone lesions. PUBIS AND ISCHIUM: No acute fracture. LOWER LUMBAR SPINE: No acute findings as visualized. SOFT TISSUES: No findings. OTHER: No other significant finding. IMPRESSION: No fracture identified. TECHNICAL DOCUMENTATION: JOB ID: [id number] [employer]- All Rights Reserved
[2017-02-19 01:06] VITALS: BP 94/43
== END 2017-02-19 00:35 ==
LOC: ER 19:14
DX: L89.322 Pressure ulcer of left buttock, stage 2 (principal); L89.311 Pressure ulcer of right buttock, stage 1; N39.0 Urinary tract infection, site not specified; R00.0 Tachycardia, unspecified; E11.22 Type 2 diabetes mellitus with diabetic chronic kidney disease; I12.0 Hypertensive chronic kidney disease with stage 5 chronic kidney disease or end stage renal disease; N18.6 End stage renal disease; E87.5 Hyperkalemia; F03.90 Unspecified dementia, unspecified severity, without behavioral disturbance, psychotic disturbance, mood disturbance, and anxiety; J44.9 Chronic obstructive pulmonary disease, unspecified; Z88.0 Allergy status to penicillin; Z88.5 Allergy status to narcotic agent; Z88.2 Allergy status to sulfonamides; Z88.1 Allergy status to other antibiotic agents
CPT/HCPCS: 99285; 96360; 51702; 36415; 87086; 85025; 80053; 81001; 72170; J7030